=== PATIENT | female | born 1945 | race Caucasian/White ===

== ENCOUNTER 2017-03-08 23:44 | Inpatient (IN) | payer MEDICARE ==
[~2017-03-08] VITALS: Ht 154.9 cm; Wt 129.1 kg
[~2017-03-08 23:44] MED LIST: /AUGM875TA OR; /CIPR75TA OR; /GLIP10TAB PO; ACET65TA OR; ALBU17IN INH; ALBU83IN IN; ALDA25TA2 OR; ALLO300T PO; AMIT10TA PO; AMIT10TA2 OR; AMIT10TA2 PO; ASPI1TAB; ASPI1TAB PO; ASPI325T28; ASPI81TA83 PO; ATEN50TA2 PO; BABY81CH OR; COLA100C2 PO; COZA50TA18 PO; CRES5TAB OR; DULC10SU2 PR; ELIQ2.5T PO; FURO40TA2 PO; GLIP10TA6 PO; GLIP10TA97 OR; GLIP1TAB51 PO; GLUCOSAMINE PO; HUMALOG SC; HUMOLOG INSULIN SC; HUMUINJ SC; INSUDET SC; INSUHUMDS SC; LASI40TA PO; LEVEINJ SC; LEVEMIR INSULIN SC; LIPITOR PO; LOSA50TA20 PO; MIRALEX PO; MULTCAP PO; OXYGEN INH; POTA10CA2 OR; SINGULAR PO; SPIR25TA2 PO; SYNT100T PO; SYNT125T PO; SYNT175T PO; SYNTHROID PO; TOLT2TA OR; VICO5TAB OR; VITA-193 PO; VITA100066 PO; ZYLO300T OR; ZYLO300T4 PO; [UNRECOGNIZED DRUG - SUPPLY]; augmentin PO
[2017-03-09] MEDS ORDERED: [UNRECOGNIZED DRUG - OTHER] AD (00:15)
[2017-03-09] MEDS ORDERED: ONDANSETRON 4MG/2ML VIAL (J2405) IV ONE (01:15)
[2017-03-09 01:16] LABS: BASO % 0.2 % (0.0-1.0); EOS # 0.1 K/mm3 (0.0-0.50); EOS % 0.5 % (0.0-3.0); LARGE UNSTAINED CELL # 0.1 K/mm3 (0.0-0.4); LARGE UNSTAINED CELL % 0.7 % (0.0-4.0); LYMPH # 1.2 K/mm3 (1.5-4.5); LYMPH % 8.5 % (24.0-44.0); MEAN CORPUSCULAR HEMOGLOBIN 28.3 pg (27.0-33.0); MEAN CORPUSCULAR HGB CONC 31.8 g/dl (32.0-36.5); MEAN CORPUSCULAR VOLUME 89.1 fl (80.0-96.0); MONO # 0.5 K/mm3 (0.0-0.8); MONO % 3.1 % (0.0-5.0); NEUTROPHILS # 12.6 K/mm3 (1.8-7.7); NEUTROPHILS % 86.9 % (36.0-66.0); PLATELET COUNT, AUTOMATED 336 k/mm3 (150-450); RED CELL DISTRIBUTION WIDTH 16.5 % (11.5-14.5); WHITE BLOOD COUNT 14.5 K/mm3 (4.0-10.0)
[2017-03-09] MEDS: MORPHINE 2 MG/ML 1ML SYRINGE IV PRN ×4 (01:17→03:33)
[2017-03-09 01:24] LABS: ALBUMIN 4.1 GM/DL (3.2-5.2); ALBUMIN/GLOBULIN RATIO 0.95 (1.00-1.93); BILIRUBIN,DIRECT 0.1 MG/DL (0.0-0.2); BILIRUBIN,TOTAL 0.5 MG/DL (0.2-1.0); CALCIUM LEVEL 9.7 MG/DL (8.8-10.2); CREATININE FOR GFR 1.39 MG/DL (0.55-1.02); GLOMERULAR FILTRATION RATE 39.8 (>39); POTASSIUM SERUM 4.3 MEQ/L (3.5-5.1); TOTAL PROTEIN 8.4 GM/DL (6.4-8.2)
--- NOTE | 2017-03-09 02:30 | REPUSA ---
CLINICAL HISTORY: Abdominal pain. TECHNIQUE: Multiple axial, sagittal and coronal CT images were obtained through the abdomen and pelvi s without administration of oral or IV contrast material. COMMENTS: Infraumbilical anterior midline abdominal hernia containing nonincarcerated sac. Right periumbilical anterior abdominal wall hernia containing mildly incarcerated distal ileal small bowel loop. Surrounding fat stranding. No evidence bowel perforation or pneumatosis intestinalis. No free fluid is seen. Secondary mild partial small bowel obstruction with a transition zone at the level of the hernia. The liver is mildly enlarged without mass or defect. Mild irregularity of the hepatic contour. There is no intra or extrahepatic biliary ductal dilatation. The spleen is normal. The gallbladder is thick ened. The pancreas is of normal contour and attenuation characteristics. There is no evidence of adre nal mass. The kidneys are normal in size, shape and configuration. No renal or ureteral calculi are identified. There is no hydroureter or hydronephrosis. There is no evidence for appendicitis. There is no evidence of abdominal ascites or lymphadenopathy. There is no evidence of intrinsic or extrinsic bladder mass. There is no pelvic ascites or lymphadeno kamar. Images of the lung bases show no evidence of pleural or parenchymal mass. There are no pleural effusi ons. The bony structures are free of lytic or blastic lesions. Multilevel degenerative changes are seen in volving the thoracolumbar spine. Scattered calcifications are seen involving the aorta and major branches compatible with atherosclero sis. Prior hysterectomy. IMPRESSION: Infraumbilical anterior midline abdominal hernia containing nonincarcerated sac. Right periumbilical anterior abdominal wall hernia containing mildly incarcerated distal ileal small bowel loop. Surrounding fat stranding. No evidence bowel perforation or pneumatosis intestinalis. No free fluid is seen. Secondary mild partial small bowel obstruction with a transition zone at the level of the hernia. Prior hysterectomy. Thank you for your kind referral of this patient. ADDENDUM: Dr Armstrong informed at 2:20 am.
[2017-03-09] MEDS ORDERED: LOSA100T36 PO (03:09)
[2017-03-09] MEDS ORDERED: VITMTA PO (03:09)
[2017-03-09] MEDS ORDERED: ASPI81TAEC PO (03:09)
[2017-03-09] MEDS ORDERED: ACET-683 PO (03:09)
[2017-03-09] MEDS ORDERED: ATEN100T PO (03:09)
[2017-03-09] MEDS ORDERED: TOUJ1.2I SC (03:10)
[2017-03-09] MEDS ORDERED: SYNT100T PO (03:10)
[2017-03-09] MEDS ORDERED: ONDANSETRON 4MG/2ML VIAL (J2405) IV PRN (03:30)
[2017-03-09] MEDS ORDERED: NORCO, ANEXSIA 5/325MG TABLET (HYDROcodone/ACETAMINOPHEN) PO PRN (03:30)
[2017-03-09 04:30] VITALS: BP 176/72
[2017-03-09] MEDS: LR 1,000 ML IV SCH ×3 (04:45→18:15)
[2017-03-09 07:28] LABS: BASO % 0.3 % (0.0-1.0); EOS % 0.3 % (0.0-3.0); LARGE UNSTAINED CELL # 0.1 K/mm3 (0.0-0.4); LARGE UNSTAINED CELL % 0.9 % (0.0-4.0); LYMPH # 0.8 K/mm3 (1.5-4.5); LYMPH % 9.4 % (24.0-44.0); MEAN CORPUSCULAR HGB CONC 32.1 g/dl (32.0-36.5); MEAN CORPUSCULAR VOLUME 90.2 fl (80.0-96.0); MONO # 0.3 K/mm3 (0.0-0.8); MONO % 3.2 % (0.0-5.0); NEUTROPHILS # 7.6 K/mm3 (1.8-7.7); NEUTROPHILS % 85.9 % (36.0-66.0); PLATELET COUNT, AUTOMATED 294 k/mm3 (150-450); RED CELL DISTRIBUTION WIDTH 16.6 % (11.5-14.5); WHITE BLOOD COUNT 8.8 K/mm3 (4.0-10.0)
[2017-03-09 07:37] LABS: CALCIUM LEVEL 9.6 MG/DL (8.8-10.2); CREATININE FOR GFR 1.29 MG/DL (0.55-1.02); GLOMERULAR FILTRATION RATE 43.4 (>39); POTASSIUM SERUM 4.8 MEQ/L (3.5-5.1)
[2017-03-09] MEDS: ENOXAPARIN 40 MG/0.4 ML SYRINGE (J1650) SC SCH (08:14)
[2017-03-09] MEDS: MORPHINE 4 MG/ML 1ML SYRINGE IV PRN ×2 (08:14→11:07)
--- NOTE | 2017-03-09 08:49 | HPEPDOC ---
General Surgery H&P Date of Admission Mar 09, 2017 at 03:30 History and Physical CHIEF COMPLAINT: abdominal pain, nausea, and vomiting. HISTORY OF PRESENT ILLNESS: Patient is a 71 year old Female with morbid obesity and a long standing history of incisional hernia who presented herself to the emergency room late last night for complaint sudden onset of crampy upper abdominal pain, nausea and vomiting. This started about 7 PM last night prior to this, patient was feeling well. She did have history last July where she presented with slowly resolving partial small bowel obstruction related to her hernia that got better with conservative therapy. She said she'll follow-up with Dr. De La Cruz after this to discuss with him, hernia repair but due to her morbid obesity, he thinks she is not a good candidate for an elective hernia repair. All her other medical problems include sleep apnea on CPAP, diabetes on insulin, history of congestive heart failure. ALLERGIES: Please see below. HOME MEDICATIONS: Please see below. PAST MEDICAL HISTORY: 1. Diabetes, insulin-dependent 2. Morbid obesity 3. Hypothyroidism status post thyroidectomy for thyroid cancer 4. History of congestive heart failure 5. Hypertension 6. Hypercholesterolemia 7. Obstructive sleep apnea on CPAP nightly PAST SURGICAL HISTORY: 1. Thyroidectomy for thyroid cancer 2. Abdominal hysterectomy 3. Sigmoid colon resection for diverticular stricture 4. Umbilical hernia repair done at the same time as the colon resection (no mesh ) 5. Bilateral cataract surgery 6. Left knee arthroplasty PERSONAL/SOCIAL HISTORY: Denies smoking, alcohol use, or recreational drug use she works as a cook. Reports she remains fairly active REVIEW OF SYSTEMS: GENERAL: Denies chills, fatigue, fever, weight gain and weight loss. HEENT: Denies blurred vision and double vision. Denies ear symptoms. Denies hoarseness. NECK: Denies any neck pain. CARDIOVASCULAR: Denies chest pain and palpitations. MUSCULOSKELETAL: Denies arthralgias, back pain and thrombophlebitis. SKIN: Denies rash. NEUROLOGIC: Denies headache, stroke and transient ischemic attack. PSYCHIATRIC: Denies anxiety and depression. ENDOCRINE: Denies thyroid disease. HEMATOLOGY/ONCOLOGY: Denies any bleeding or clotting disorder. HEART: Denies any chest pains, palpitations, paroxysmal dyspnea, orthopnea. PULMONARY: Denies chronic cough, dyspnea and wheezing. GASTROINTESTINAL: See HPI GENITOURINARY: Denies dysuria, frequency, hematuria and nocturia. ENDOCRINE: Denies polydipsia, polyphagia, polyuria, heat or cold intolerance. Known diabetes on insulin no INFECTIOUS: Denies any recent upper respiratory tract infection, UTI, need for use of antibiotics. NUTRITION: Reports good appetite. PHYSICAL EXAMINATION: VITAL SIGNS: Please see below. GENERAL APPEARANCE: Patient seen at bedside, appears comfortable. Awake, alert, oriented. HEENT: Normocephalic, atraumatic. [place] palpebral conjunctivae. Anicteric sclerae. Lips moist. CHEST: No chest wall abnormalities. Normal respiratory motion/effort. NECK: Supple. No thyromegaly. No lymphadenopathies. LUNGS: Lung sounds are clear to auscultation bilaterally. No wheezing appreciated. HEART: No chest wall abnormalities. Heart rate and rhythm are regular with no murmurs. ABDOMEN: Abdomen is markedly obese, soft, moderately rounded rounded. She is moderately distended. Distention is most pronounced on the upper abdomen with wide diastases of her upper midline muscles as well as noticeable periumbilical bulging consistent with the hernia. Minimally tender on palpation. No rebound or guarding appreciated. SKIN: Warm, moist. EXTREMITIES: Extremities have no deformities. No edema identified. NEUROLOGICAL: . ANCILLARIES: . LABORATORY DATA: Please see below. MICROBIOLOGY: Please see below. IMAGING: . IMPRESSION AND PLAN: 1. Small bowel obstruction related to her incisional hernia 2. Morbid obesity with a BMI of 54 3. By report history of congestive heart failure though I could not find any documentation in the more off her EF 4. Diabetes, insulin-dependent A nasogastric tube has been placed in the emergency room and so far has drained about 500-600 ML since placement. Patient reports improvement of the crampiness though she still looks distended especially on her upper abdomen. She looks comfortable at the time I saw her. I have repeated her labs from the ER labs in the leukocytosis has resolved. Her creatinine is elevated though close to her baseline. Her BUN remains elevated probably more from dehydration. So we will keep her on IV fluids. Have spoken to the hospitalist service to evaluate her for possibility of going to the OR. I discussed her situation with her. She does have bowel obstruction and this seems to be related to her incisional hernia. She has about 3 hernia defects that I could clearly see along her incisional line at the midline and the one below the umbilicus seems to contain a bowel habits close to where the obstruction as though on physical exam due to her morbid obesity hard to ascertain whether this is incarcerated in the hernia as a classical define it or just adhered to the sac or abdominal wall. Due to her morbid obesity she is a poor candidate for hernia repair is most likely this would fail but due to the associated symptoms, we could not just ignore it and should try to repair this the best that we can. Question in my mind as have discussed with her and is whether we could do an emergent surgery which probably will be done in open fashion or we can decompress a little contrast to do it laparoscopically. Both methods probably long-term will fail if she remains morbidly obese. Vital Signs Vital Signs Date Time Temp Pulse Resp B/P (MAP) Pulse Ox O2 Delivery O2 Flow Rate FiO2 03/09/17 08:14 18 Nasal Cannula 2.0 03/09/17 04:30 97.3 77 176/72 (106) 94 I&Os I&O- Last 24 Hours up to 6 AM 03/09/17 06:00 Intake Total 0 ml Output Total 0 ml Balance 0 ml Laboratory Data Labs 24H Laboratory Tests 2 03/09/17 00:52: White Blood Count 14.5H, Red Blood Count 4.89, Hemoglobin 13.8, Hematocrit 43.5 , Mean Corpuscular Volume 89.1, Mean Corpuscular Hemoglobin 28.3, Mean Corpuscular Hemoglobin Concent 31.8L, Red Cell Distribution Width 16.5H, Platelet Count 336, Neutrophils (%) (Auto) 86.9H, Lymphocytes (%) (Auto) 8.5L, Monocytes (%) (Auto) 3.1, Eosinophils (%) (Auto) 0.5, Basophils (%) (Auto) 0.2, Neutrophils # (Auto) 12.6H, Lymphocytes # (Auto) 1.2L, Monocytes # (Auto) 0.5, Eosinophils # (Auto) 0.1, Basophils # (Auto) 0.0, Large Unclassified Cells % 0.7 , Large Unclassified Cells # 0.1, Anion Gap 7L, Glomerular Filtration Rate 39.8 , Calcium Level 9.7, Aspartate Amino Transf (AST/SGOT) 20, Alanine Aminotransferase (ALT/SGPT) 24, Alkaline Phosphatase 124H, Total Bilirubin 0.5, Direct Bilirubin 0.1, Total Protein 8.4H, Albumin 4.1, Albumin/Globulin Ratio 0.95L, Lipase 163 03/09/17 07:15: Anion Gap 5L, Glomerular Filtration Rate 43.4, Calcium Level 9.6, Blood Urea Nitrogen 45H, Creatinine 1.29H, Sodium Level 141, Potassium Level 4.8, Chloride Level 107, Carbon Dioxide Level 29 03/09/17 07:16: White Blood Count 8.8, Red Blood Count 4.41, Hemoglobin 12.8, Hematocrit 39.8, Mean Corpuscular Volume 90.2, Mean Corpuscular Hemoglobin 29.0, Mean Corpuscular Hemoglobin Concent 32.1, Red Cell Distribution Width 16.6H, Platelet Count 294, Neutrophils (%) (Auto) 85.9H, Lymphocytes (%) (Auto) 9.4L, Monocytes (%) (Auto) 3.2, Eosinophils (%) (Auto) 0.3, Basophils (%) (Auto) 0.3, Neutrophils # (Auto) 7.6, Lymphocytes # (Auto) 0.8L, Monocytes # (Auto) 0.3, Eosinophils # (Auto) 0.0, Basophils # (Auto) 0.0, Large Unclassified Cells % 0.9 , Large Unclassified Cells # 0.1 CBC/BMP Laboratory Tests 03/09/17 00:52 Red Blood Count 4.89, Mean Corpuscular Volume 89.1, Mean Corpuscular Hemoglobin 28.3, Mean Corpuscular Hemoglobin Concent 31.8 L, Red Cell Distribution Width 16.5 H, Neutrophils (%) (Auto) 86.9 H, Lymphocytes (%) (Auto) 8.5 L, Monocytes ( %) (Auto) 3.1, Eosinophils (%) (Auto) 0.5, Basophils (%) (Auto) 0.2, Neutrophils # (Auto) 12.6 H, Lymphocytes # (Auto) 1.2 L, Monocytes # (Auto) 0.5 , Eosinophils # (Auto) 0.1, Basophils # (Auto) 0.0 03/09/17 07:15 Calcium Level 9.6 03/09/17 07:16 Red Blood Count 4.41, Mean Corpuscular Volume 90.2, Mean Corpuscular Hemoglobin 29.0, Mean Corpuscular Hemoglobin Concent 32.1, Red Cell Distribution Width 16.6 H, Neutrophils (%) (Auto) 85.9 H, Lymphocytes (%) (Auto) 9.4 L, Monocytes ( %) (Auto) 3.2, Eosinophils (%) (Auto) 0.3, Basophils (%) (Auto) 0.3, Neutrophils # (Auto) 7.6, Lymphocytes # (Auto) 0.8 L, Monocytes # (Auto) 0.3, Eosinophils # (Auto) 0.0, Basophils # (Auto) 0.0 Home Medications Scheduled (Toujeo Solostar) 300 Unit/Ml Inj, 110 UNIT SC DAILY, (Reported) Allopurinol (Zyloprim) 300 Mg Tab, 300 MG PO DAILY, (Reported) Amitriptyline HCl (Amitriptyline HCl) 10 Mg Tab, 10 MG PO QHS, (Reported) Aspirin (Aspirin EC) 81 Mg Tabec, 81 MG PO QHS, (Reported) Atenolol (Atenolol) 100 Mg Tab, 50 MG PO BID, (Reported) Cholecalciferol (Vitamin D) 1,000 Unit Tab, 1,000 UNIT PO DAILY, (Reported) Cyanocobalamin (Vitamin B-12) 500 Mcg Tab, 500 MCG PO DAILY, (Reported) Furosemide (Furosemide) 40 Mg Tab, 40 MG PO BID, (Reported) Insulin Human Lispro (Humalog) 1 Units/0.01 Ml Inj, 20 UNITS SC BID, (Reported) BEFORE LUNCH AND DINNER Levothyroxine Sodium (Synthroid) 100 Mcg Tab, 100 MCG PO 4XWK, (Reported) TAKES ON MONDAY, MONDAY, MONDAY AND MONDAY. TAKES WITH 125 MCG FOR 225 MCG TOTAL ON THOSE DAYS. Levothyroxine Sodium (Synthroid) 125 Mcg Tab, 125 MCG PO DAILY, (Reported) Levothyroxine Sodium (Synthroid) 100 Mcg Tab, 50 MCG PO 3XW, (Reported) TAKES ON MONDAY, MONDAY AND MONDAY. TAKES WITH 125 MCG FOR 175 MCG TOTAL ON THOSE DAYS. Losartan Potassium (Losartan Potassium) 100 Mg Tab, 50 MG PO BID, (Reported) Multivitamins *[facility] STOCKED* (Thera M Plus *[facility] STOCKED*) 1 Tab Tab, 1 TAB PO DAILY, (Reported) Spironolactone (Spironolactone) 25 Mg Tab, 12.5 MG PO QHS, (Reported) Scheduled PRN Acetaminophen (Acetaminophen Extra Stren) 500 Mg Tab, 1,000 MG PO Q6H PRN for PAIN, (Reported) Allergies Coded Allergies: Contrast Media (Unverified Allergy, Unknown, 08/08/16) Exenatide (Verified Allergy, Unknown, 12/01/12) Nitrofurantoin (Verified Allergy, Unknown, MACROBID, 12/01/12) Phenol (Unverified Allergy, Unknown, 08/08/16) TAPE (Verified Adverse Reaction, Intermediate, ERYTHEMA ALSO WITH BANDAIDS , 08/08/16) PASCUAL MCINTOSH MD Mar 09, 2017 08:29
[2017-03-09] MEDS: PANTOPRAZOLE 40MG INJ (PROTONIX) (C9113) IV SCH (09:26)
[2017-03-09] MEDS ORDERED: hydrALAZINE INJ 20 MG/ML VIAL IV SCH (10:30)
[2017-03-09] MEDS: HumaLOG INSULIN (NovoLOG) PER UNIT SC SCH ×2 (11:02→21:00)
[2017-03-09] MEDS: NORCO, ANEXSIA 5/325MG TABLET (HYDROcodone/ACETAMINOPHEN) PO PRN ×2 (13:06→22:07)
[2017-03-09] MEDS: LOSARTAN 50 MG TAB PO SCH ×2 (13:07→22:02)
[2017-03-09] MEDS: ATENOLOL 50 MG TAB PO SCH ×2 (13:07→22:03)
[2017-03-09 14:00] VITALS: BP 150/69
--- NOTE | 2017-03-09 15:32 | CR.PDOC ---
[facility] Consultation Consultation DATE OF CONSULTATION: Mar 08, 2017 at 23:44 PRIMARY CARE PHYSICIAN: Megan Gillis REFERRING PROVIDER: Dr. Loco ATTENDING PHYSICIAN: Dr. Loco REASON FOR CONSULTATION/CHIEF COMPLAINT: Medical comanagement HISTORY OF PRESENT ILLNESS: This is a 71-year-old female with a past medical history of insulin-dependent diabetes mellitus, obstructive sleep apnea, diastolic heart failure, hypothyroidism status post thyroid cancer radiation and resection, CKD stage III , hypertension who presents complaining of abdominal pain. Patient states that 6:30 PM last night she started to develop nausea and bilious nonbloody vomiting, 2. The patient states her last bowel movement was Monday. Patient also started to develop chills. Minimal abdominal pain. Patient denies chest pain/shortness of breath/palpitations. Patient does have obstructive sleep apnea and typically uses her CPAP. Patient currently has an NG tube in place and states that her abdominal distention nausea and vomiting have significantly improved after this was placed. She is resting comfortably now. ALLERGIES: Please see below. HOME MEDICATIONS: Please see below. PAST MEDICAL HISTORY: As per HPI PAST SURGICAL HISTORY: Thyroid removal, hysterectomy, left knee surgery, bowel reconstruction, left breast biopsy, tubal ligation FAMILY HISTORY: Noncontributory SOCIAL HISTORY: Denies tobacco, alcohol, illicit drug use REVIEW OF SYSTEMS: HEENT: Denies sore throat/headache CARDIOVASCULAR: Denies chest pain/palpitations RESPIRATORY: Denies shortness of breath/cough GASTROINTESTINAL: + nausea/vomiting GENITOURINARY: Denies dysuria/urinary urgency. MUSCULOSKELETAL: Denies myalgias/arthralgias NEUROLOGICAL: Denies any focal weakness PHYSICAL EXAMINATION: VITAL SIGNS: Please see below. General: No acute distress, laying comfortably in bed. HEENT: Moist mucous membranes. NG tube in place with bilious fluid drained. Neck: No JVD or lymphadenopathy Cardiac: RRR, No murmurs Pulm: Clear to auscultation b/l. No wheezing, rhonchi Abd: Nontender. Distended. + BS. No rebound guarding or rigidity. Ext: Trace to 1+ edema lower extremities. No cyanosis. LABORATORY DATA: Please see below. ASSESSMENT/PLAN: 1. Small bowel obstruction- history of abdominal hysterectomy as well as sigmoid colon resection for diverticular stricture and an umbilical hernia repair. Patient does have an NG tube in place now draining bilious fluid. Resting comfortably. Management per surgery. 2. Obstructive sleep apnea- typically uses her CPAP at home. LUBA protocol. 3. History of diastolic heart failure- compensated. Diuretics on hold this time as the patient does have fluid suctioned from the NG tube and may need to fluid resuscitation. Last EF in 2013 was normal. We'll repeat echocardiogram. 4. Insulin-dependent diabetes mellitus- we'll reduce his dose of insulin as the patient is nothing by mouth at this point. Levemir 10 mg twice a day. 5. Hypertension- will restart patient's home meds 6. Morbid obesity- does pose an increased risk for surgical complications with anesthesia, especially the setting of obstructive sleep apnea 7. Hyperlipidemia- on statin 8. Hypothyroidism status post thyroidectomy/radiation- restart patient's Synthroid 9. H/o CKD stage 3, Mild elevation of Cr//BUN. On IVF. Lasix on hold. 10. Leukocytosis- likely secondary to #1. Resolved. DVT prophylaxis enoxaparin Vital Signs/I&O Vital Signs Date Time Temp Pulse Resp B/P (MAP) Pulse Ox O2 Delivery O2 Flow Rate FiO2 03/09/17 14:00 97.4 65 16 150/69 (96) 97 Nasal Cannula 2.0 I&O- Last 24 Hours up to 6 AM 03/09/17 06:00 Intake Total 0 ml Output Total 0 ml Balance 0 ml Laboratory Data Labs 24H Laboratory Tests 2 03/09/17 00:52: White Blood Count 14.5H, Red Blood Count 4.89, Hemoglobin 13.8, Hematocrit 43.5 , Mean Corpuscular Volume 89.1, Mean Corpuscular Hemoglobin 28.3, Mean Corpuscular Hemoglobin Concent 31.8L, Red Cell Distribution Width 16.5H, Platelet Count 336, Neutrophils (%) (Auto) 86.9H, Lymphocytes (%) (Auto) 8.5L, Monocytes (%) (Auto) 3.1, Eosinophils (%) (Auto) 0.5, Basophils (%) (Auto) 0.2, Neutrophils # (Auto) 12.6H, Lymphocytes # (Auto) 1.2L, Monocytes # (Auto) 0.5, Eosinophils # (Auto) 0.1, Basophils # (Auto) 0.0, Large Unclassified Cells % 0.7 , Large Unclassified Cells # 0.1, Anion Gap 7L, Glomerular Filtration Rate 39.8 , Calcium Level 9.7, Aspartate Amino Transf (AST/SGOT) 20, Alanine Aminotransferase (ALT/SGPT) 24, Alkaline Phosphatase 124H, Total Bilirubin 0.5, Direct Bilirubin 0.1, Total Protein 8.4H, Albumin 4.1, Albumin/Globulin Ratio 0.95L, Lipase 163 03/09/17 07:15: Anion Gap 5L, Glomerular Filtration Rate 43.4, Calcium Level 9.6, Blood Urea Nitrogen 45H, Creatinine 1.29H, Sodium Level 141, Potassium Level 4.8, Chloride Level 107, Carbon Dioxide Level 29 03/09/17 07:16: White Blood Count 8.8, Red Blood Count 4.41, Hemoglobin 12.8, Hematocrit 39.8, Mean Corpuscular Volume 90.2, Mean Corpuscular Hemoglobin 29.0, Mean Corpuscular Hemoglobin Concent 32.1, Red Cell Distribution Width 16.6H, Platelet Count 294, Neutrophils (%) (Auto) 85.9H, Lymphocytes (%) (Auto) 9.4L, Monocytes (%) (Auto) 3.2, Eosinophils (%) (Auto) 0.3, Basophils (%) (Auto) 0.3, Neutrophils # (Auto) 7.6, Lymphocytes # (Auto) 0.8L, Monocytes # (Auto) 0.3, Eosinophils # (Auto) 0.0, Basophils # (Auto) 0.0, Large Unclassified Cells % 0.9 , Large Unclassified Cells # 0.1 03/09/17 12:13: Bedside Glucose (Misc Panel) 130H CBC/BMP Laboratory Tests 03/09/17 00:52 Red Blood Count 4.89, Mean Corpuscular Volume 89.1, Mean Corpuscular Hemoglobin 28.3, Mean Corpuscular Hemoglobin Concent 31.8 L, Red Cell Distribution Width 16.5 H, Neutrophils (%) (Auto) 86.9 H, Lymphocytes (%) (Auto) 8.5 L, Monocytes ( %) (Auto) 3.1, Eosinophils (%) (Auto) 0.5, Basophils (%) (Auto) 0.2, Neutrophils # (Auto) 12.6 H, Lymphocytes # (Auto) 1.2 L, Monocytes # (Auto) 0.5 , Eosinophils # (Auto) 0.1, Basophils # (Auto) 0.0 03/09/17 07:15 Calcium Level 9.6 03/09/17 07:16 Red Blood Count 4.41, Mean Corpuscular Volume 90.2, Mean Corpuscular Hemoglobin 29.0, Mean Corpuscular Hemoglobin Concent 32.1, Red Cell Distribution Width 16.6 H, Neutrophils (%) (Auto) 85.9 H, Lymphocytes (%) (Auto) 9.4 L, Monocytes ( %) (Auto) 3.2, Eosinophils (%) (Auto) 0.3, Basophils (%) (Auto) 0.3, Neutrophils # (Auto) 7.6, Lymphocytes # (Auto) 0.8 L, Monocytes # (Auto) 0.3, Eosinophils # (Auto) 0.0, Basophils # (Auto) 0.0 Allergies Coded Allergies: Contrast Media (Unverified Allergy, Unknown, 08/08/16) Exenatide (Verified Allergy, Unknown, 12/01/12) Nitrofurantoin (Verified Allergy, Unknown, MACROBID, 12/01/12) Phenol (Unverified Allergy, Unknown, 08/08/16) TAPE (Verified Adverse Reaction, Intermediate, ERYTHEMA ALSO WITH BANDAIDS , 08/08/16) Home Medications Scheduled (Moo Gonzalez) 300 Unit/Ml Inj, 110 UNIT SC DAILY, (Reported) Allopurinol (Zyloprim) 300 Mg Tab, 300 MG PO DAILY, (Reported) Amitriptyline HCl (Amitriptyline HCl) 10 Mg Tab, 10 MG PO QHS, (Reported) Aspirin (Aspirin EC) 81 Mg Tabec, 81 MG PO QHS, (Reported) Atenolol (Atenolol) 100 Mg Tab, 50 MG PO BID, (Reported) Cholecalciferol (Vitamin D) 1,000 Unit Tab, 1,000 UNIT PO DAILY, (Reported) Cyanocobalamin (Vitamin B-12) 500 Mcg Tab, 500 MCG PO DAILY, (Reported) Furosemide (Furosemide) 40 Mg Tab, 40 MG PO BID, (Reported) Insulin Human Lispro (Humalog) 1 Units/0.01 Ml Inj, 20 UNITS SC BID, (Reported) BEFORE LUNCH AND DINNER Levothyroxine Sodium (Synthroid) 100 Mcg Tab, 100 MCG PO 4XWK, (Reported) TAKES ON MONDAY, MONDAY, MONDAY AND MONDAY. TAKES WITH 125 MCG FOR 225 MCG TOTAL ON THOSE DAYS. Levothyroxine Sodium (Synthroid) 125 Mcg Tab, 125 MCG PO DAILY, (Reported) Levothyroxine Sodium (Synthroid) 100 Mcg Tab, 50 MCG PO 3XW, (Reported) TAKES ON MONDAY, MONDAY AND MONDAY. TAKES WITH 125 MCG FOR 175 MCG TOTAL ON THOSE DAYS. Losartan Potassium (Losartan Potassium) 100 Mg Tab, 50 MG PO BID, (Reported) Multivitamins *[facility] STOCKED* (Thera M Plus *[facility] STOCKED*) 1 Tab Tab, 1 TAB PO DAILY, (Reported) Spironolactone (Spironolactone) 25 Mg Tab, 12.5 MG PO QHS, (Reported) Scheduled PRN Acetaminophen (Acetaminophen Extra Stren) 500 Mg Tab, 1,000 MG PO Q6H PRN for PAIN, (Reported) OSVALDO ARCEO MD Mar 09, 2017 15:32
[2017-03-09] MEDS: CYANOCOBALAMIN 500 MCG TAB PO SCH (16:00)
[2017-03-09] MEDS: VITAMIN D 1,000 INTERNATIONAL UNITS TABLET PO SCH (16:00)
[2017-03-09 22:00] VITALS: BP 163/67
[2017-03-09] MEDS: AMITRIPTYLINE 10 MG TAB PO SCH (22:02)
[2017-03-10] MEDS: MORPHINE 4 MG/ML 1ML SYRINGE IV PRN (02:31)
[2017-03-10] MEDS: LR 1,000 ML IV SCH ×2 (03:08→17:16)
[2017-03-10] MEDS: LEVOTHYROXINE 125MCG TABLET (0.125MG) PO SCH (05:08)
[2017-03-10] MEDS: NORCO, ANEXSIA 5/325MG TABLET (HYDROcodone/ACETAMINOPHEN) PO PRN (05:09)
[2017-03-10 06:00] VITALS: BP 140/63
[2017-03-10] MEDS ORDERED: LEVOTHYROXINE 50MCG TABLET (0.05MG) PO SCH (06:00)
[2017-03-10 08:30] LABS: BASO % 0.3 % (0.0-1.0); EOS # 0.1 K/mm3 (0.0-0.50); EOS % 1.9 % (0.0-3.0); LARGE UNSTAINED CELL # 0.1 K/mm3 (0.0-0.4); LARGE UNSTAINED CELL % 1.4 % (0.0-4.0); LYMPH # 1.4 K/mm3 (1.5-4.5); LYMPH % 19.6 % (24.0-44.0); MEAN CORPUSCULAR HEMOGLOBIN 29.3 pg (27.0-33.0); MEAN CORPUSCULAR VOLUME 91.5 fl (80.0-96.0); MONO # 0.4 K/mm3 (0.0-0.8); MONO % 5.5 % (0.0-5.0); NEUTROPHILS # 4.9 K/mm3 (1.8-7.7); NEUTROPHILS % 71.4 % (36.0-66.0); PLATELET COUNT, AUTOMATED 277 k/mm3 (150-450); RED CELL DISTRIBUTION WIDTH 16.6 % (11.5-14.5); WHITE BLOOD COUNT 6.9 K/mm3 (4.0-10.0)
[2017-03-10] MEDS: ATENOLOL 50 MG TAB PO SCH ×2 (08:54→21:48)
[2017-03-10] MEDS: CYANOCOBALAMIN 500 MCG TAB PO SCH (08:54)
[2017-03-10] MEDS: PANTOPRAZOLE 40MG INJ (PROTONIX) (C9113) IV SCH (08:54)
[2017-03-10] MEDS: ENOXAPARIN 40 MG/0.4 ML SYRINGE (J1650) SC SCH (08:54)
[2017-03-10] MEDS: LOSARTAN 50 MG TAB PO SCH ×2 (08:54→21:48)
[2017-03-10] MEDS: VITAMIN D 1,000 INTERNATIONAL UNITS TABLET PO SCH (08:54)
[2017-03-10] MEDS: HumaLOG INSULIN (NovoLOG) PER UNIT SC SCH ×2 (09:00→21:09)
[2017-03-10 09:17] LABS: ALBUMIN/GLOBULIN RATIO 0.94 (1.00-1.93); BILIRUBIN,TOTAL 0.5 MG/DL (0.2-1.0); CALCIUM LEVEL 8.4 MG/DL (8.8-10.2); CREATININE FOR GFR 1.37 MG/DL (0.55-1.02); GLOMERULAR FILTRATION RATE 40.5 (>39); MAGNESIUM LEVEL 2.4 MG/DL (1.8-2.4); POTASSIUM SERUM 4.8 MEQ/L (3.5-5.1); TOTAL PROTEIN 6.2 GM/DL (6.4-8.2)
--- NOTE | 2017-03-10 11:31 | REP ---
ABDOMINAL SERIES: Four views. HISTORY: Followup small bowel obstruction. Comparison is made with CT study from the previous day. FINDINGS: Upright chest radiograph demonstrates an NG tube entering the left upper quadrant of the abdomen. There are surgical clips in the soft tissues at the thoracic inlet consistent with previous right thyroid surgery. The lungs are symmetrically aerated and clear. There is no evidence of infiltrate or free subdiaphragmatic air. On supine and erect views of the abdomen, a small bowel obstruction pattern persists with moderately dilated air and fluid filled loops of small intestine throughout the central abdomen displaying differential air-fluid levels on upright radiograph. There is some stool in the right and left colon but no colonic distension is seen. There is a little more small bowel gas than was present at the time yesterday's CT study. The dilation is about the same. IMPRESSION: Persistent small bowel obstruction pattern. NG tube is seen terminating in the gastric fundus. Signed by Remy Oviedo MD 03/10/2017 12:31 P
--- NOTE | 2017-03-10 11:39 | IPNPDOC ---
Text Note Date of Service The patient was seen on 03/10/17. NOTE Subjective: Abd pain much improved. NG tube in place. No N/V. PHYSICAL EXAMINATION: VITAL SIGNS: Please see below. General: No acute distress, laying comfortably in bed. HEENT: Moist mucous membranes. NG tube in place with bilious fluid drained. Neck: No JVD or lymphadenopathy Cardiac: RRR, No murmurs Pulm: Clear to auscultation b/l. No wheezing, rhonchi Abd: Nontender. Distended. + BS. No rebound guarding or rigidity. Ext: Trace to 1+ edema lower extremities. No cyanosis. LABORATORY DATA: Please see below. Images: CT Abd/pelvis 03/09/17 IMPRESSION: Infraumbilical anterior midline abdominal hernia containing nonincarcerated sac. Right periumbilical anterior abdominal wall hernia containing mildly incarcerated distal ileal small bowel loop. Surrounding fat stranding. No evidence bowel perforation or pneumatosis intestinalis. No free fluid is seen. Secondary mild partial small bowel obstruction with a transition zone at the level of the hernia. Prior hysterectomy. ASSESSMENT/PLAN: 1. Small bowel obstruction- history of abdominal hysterectomy as well as sigmoid colon resection for diverticular stricture and an umbilical hernia repair. Patient does have an NG tube in place now draining bilious fluid. Resting comfortably. Management per surgery. 2. Obstructive sleep apnea- typically uses her CPAP at home. LUBA protocol. 3. History of diastolic heart failure- compensated. Diuretics on hold this time as the patient does have fluid suctioned from the NG tube and may need to fluid resuscitation. Last EF in 2013 was normal. Echocardiogram pending. 4. Insulin-dependent diabetes mellitus- we'll reduce his dose of insulin as the patient is nothing by mouth at this point. Levemir 10 mg twice a day. 5. Hypertension- will restart patient's home meds 6. Morbid obesity- does pose an increased risk for surgical complications with anesthesia, especially the setting of obstructive sleep apnea 7. Hyperlipidemia- on statin 8. Hypothyroidism status post thyroidectomy/radiation- restart patient's Synthroid 9. H/o CKD stage 3, Mild elevation of Cr//BUN. On IVF. Lasix on hold. 10. Leukocytosis- likely secondary to #1. Resolved. DVT prophylaxis enoxaparin VS,Fishbone, I+O VS, Fishbone, I+O Laboratory Tests 03/10/17 07:46 Red Blood Count 3.97 L, Mean Corpuscular Volume 91.5, Mean Corpuscular Hemoglobin 29.3, Mean Corpuscular Hemoglobin Concent 32.0, Red Cell Distribution Width 16.6 H, Neutrophils (%) (Auto) 71.4 H, Lymphocytes (%) (Auto ) 19.6 L, Monocytes (%) (Auto) 5.5 H, Eosinophils (%) (Auto) 1.9, Basophils (%) (Auto) 0.3, Neutrophils # (Auto) 4.9, Lymphocytes # (Auto) 1.4 L, Monocytes # ( Auto) 0.4, Eosinophils # (Auto) 0.1, Basophils # (Auto) 0.0 03/10/17 08:39 Calcium Level 8.4 L, Aspartate Amino Transf (AST/SGOT) 16, Alanine Aminotransferase (ALT/SGPT) 17, Alkaline Phosphatase 93, Total Bilirubin 0.5, Total Protein 6.2 #L, Albumin 3.0 #L Vital Signs Date Time Temp Pulse Resp B/P (MAP) Pulse Ox O2 Delivery O2 Flow Rate FiO2 03/10/17 08:54 140/63 03/10/17 06:00 98.4 65 18 98 Nasal Cannula 2.0 I&O- Last 24 Hours up to 6 AM 03/10/17 06:00 Intake Total 0 ml Output Total 2775 ml Balance -2775 ml OSVALDO ARCEO MD Mar 10, 2017 11:39
[2017-03-10 14:00] VITALS: BP 141/66
[2017-03-10] MEDS: AMITRIPTYLINE 10 MG TAB PO SCH (21:49)
[2017-03-10 22:00] VITALS: BP 141/66
[2017-03-11] MEDS: LR 1,000 ML IV SCH (02:35)
[2017-03-11 06:00] VITALS: BP 163/73
[2017-03-11] MEDS: LEVOTHYROXINE 100MCG TABLET (0.1MG) PO SCH (06:04)
[2017-03-11] MEDS: LEVOTHYROXINE 125MCG TABLET (0.125MG) PO SCH (06:04)
[2017-03-11 06:11] LABS: MEAN CORPUSCULAR HEMOGLOBIN 29.2 pg (27.0-33.0); MEAN CORPUSCULAR HGB CONC 31.7 g/dl (32.0-36.5); MEAN CORPUSCULAR VOLUME 92.1 fl (80.0-96.0); RED CELL DISTRIBUTION WIDTH 16.4 % (11.5-14.5)
[2017-03-11 06:32] LABS: ALBUMIN 2.8 GM/DL (3.2-5.2); ALBUMIN/GLOBULIN RATIO 0.78 (1.00-1.93); ALKALINE PHOSPHATASE 80 U/L (45-117); ALT/SGPT 15 U/L (12-78); AST/SGOT 14 U/L (15-37); BILIRUBIN,TOTAL 0.4 MG/DL (0.2-1.0); BLOOD UREA NITROGEN 29 MG/DL (7-18); CALCIUM LEVEL 8.7 MG/DL (8.8-10.2); CHLORIDE LEVEL 110 MEQ/L (98-107); CREATININE FOR GFR 0.93 MG/DL (0.55-1.02); GLOMERULAR FILTRATION RATE > 60.0 (>39); GLUCOSE, FASTING 79 MG/DL (83-110); MAGNESIUM LEVEL 2.5 MG/DL (1.8-2.4); TOTAL PROTEIN 6.4 GM/DL (6.4-8.2)
[2017-03-11 06:39] LABS: ANION GAP 7 MEQ/L (8-16); CARBON DIOXIDE LEVEL 27 MEQ/L (21-32); SODIUM LEVEL 144 MEQ/L (136-145)
[2017-03-11 06:41] LABS: POTASSIUM SERUM 3.7 MEQ/L (3.5-5.1)
[2017-03-11 09:09] VITALS: BP 150/68
--- NOTE | 2017-03-11 09:22 | REP ---
KUB, TWO VIEWS: HISTORY: Small bowel obstruction. COMPARISON: 03/10/2017 Air is present in small and large intestine. There are dilated loops of intestine that are slightly decreased in size and number compared to the previous study. There is no pneumoperitoneum. The patient is status post NG tube removal. IMPRESSION: Findings consistent with small bowel obstruction that are decreased compared to the previous study. Signed by Vic Sanabria MD 03/11/2017 09:34 A
[2017-03-11] MEDS: VITAMIN D 1,000 INTERNATIONAL UNITS TABLET PO SCH (09:48)
[2017-03-11] MEDS: CYANOCOBALAMIN 500 MCG TAB PO SCH (09:49)
[2017-03-11] MEDS: ATENOLOL 50 MG TAB PO SCH ×2 (09:50→22:51)
[2017-03-11] MEDS: LOSARTAN 50 MG TAB PO SCH ×2 (09:50→22:50)
[2017-03-11] MEDS: ENOXAPARIN 40 MG/0.4 ML SYRINGE (J1650) SC SCH (09:51)
[2017-03-11] MEDS: HumaLOG INSULIN (NovoLOG) PER UNIT SC SCH ×2 (09:54→22:51)
[2017-03-11] MEDS: FUROSEMIDE 40 MG TAB PO SCH ×2 (10:03→17:56)
[2017-03-11] MEDS: PANTOPRAZOLE 40MG INJ (PROTONIX) (C9113) IV SCH (11:53)
--- NOTE | 2017-03-11 13:55 | IPNPDOC ---
Text Note Date of Service The patient was seen on 03/11/17. NOTE Subjective: Abdominal pain resolved. NG tube was mistakenly taken out while patient was taking shower. Since then she has no nausea vomiting or abdominal pain. PHYSICAL EXAMINATION: VITAL SIGNS: Please see below. General: No acute distress, laying comfortably in bed. HEENT: Moist mucous membranes. NG tube in place with bilious fluid drained. Neck: No JVD or lymphadenopathy Cardiac: RRR, No murmurs Pulm: Clear to auscultation b/l. No wheezing, rhonchi Abd: Nontender. Distended. + BS. No rebound guarding or rigidity. Ext: Trace to 1+ edema lower extremities. No cyanosis. LABORATORY DATA: Please see below. Images: CT Abd/pelvis 03/09/17 IMPRESSION: Infraumbilical anterior midline abdominal hernia containing nonincarcerated sac. Right periumbilical anterior abdominal wall hernia containing mildly incarcerated distal ileal small bowel loop. Surrounding fat stranding. No evidence bowel perforation or pneumatosis intestinalis. No free fluid is seen. Secondary mild partial small bowel obstruction with a transition zone at the level of the hernia. Prior hysterectomy. ASSESSMENT/PLAN: 1. Small bowel obstruction- history of abdominal hysterectomy as well as sigmoid colon resection for diverticular stricture and an umbilical hernia repair. NG tube came out last night. Since then the patient has had no nausea vomiting or abdominal pain. Resting comfortably. Management per surgery. 2. Obstructive sleep apnea- typically uses her CPAP at home. LUBA protocol. 3. History of diastolic heart failure- compensated. Restart Diuretics Last EF in 2013 was normal. Echocardiogram pending. 4. Insulin-dependent diabetes mellitus- we'll reduce his dose of insulin as the patient is nothing by mouth at this point. Levemir 10 mg twice a day. 5. Hypertension-continue patient's home meds 6. Morbid obesity- does pose an increased risk for surgical complications with anesthesia, especially the setting of obstructive sleep apnea 7. Hyperlipidemia- on statin 8. Hypothyroidism status post thyroidectomy/radiation-continue Synthroid 9. H/o CKD stage 3, Mild elevation of Cr//BUN has resolved. Status post IVF. 10. Leukocytosis- likely secondary to #1. Resolved. DVT prophylaxis enoxaparin VS,Fishbone, I+O VS, Fishbone, I+O Laboratory Tests 03/11/17 05:41 Red Blood Count 3.46 L, Mean Corpuscular Volume 92.1, Mean Corpuscular Hemoglobin 29.2, Mean Corpuscular Hemoglobin Concent 31.7 L, Red Cell Distribution Width 16.4 H, Calcium Level 8.7 L, Aspartate Amino Transf (AST/SGOT ) 14 L, Alanine Aminotransferase (ALT/SGPT) 15, Alkaline Phosphatase 80, Total Bilirubin 0.4, Total Protein 6.4, Albumin 2.8 L Vital Signs Date Time Temp Pulse Resp B/P (MAP) Pulse Ox O2 Delivery O2 Flow Rate FiO2 03/11/17 09:09 97.2 63 18 150/68 (95) 92 Room Air 03/11/17 06:00 2.0 I&O- Last 24 Hours up to 6 AM 03/11/17 06:00 Intake Total 240 ml Output Total 3325 ml Balance -3085 ml OSVALDO ARCEO MD Mar 11, 2017 13:54
[2017-03-11] MEDS ORDERED: SPIRONOLACTONE 12.5MG PER 1/2 TABLET PO SCH (21:00)
[2017-03-11 22:00] VITALS: BP 152/67
[2017-03-11] MEDS: AMITRIPTYLINE 10 MG TAB PO SCH (22:50)
[2017-03-12 05:47] LABS: MEAN CORPUSCULAR HEMOGLOBIN 28.9 pg (27.0-33.0); MEAN CORPUSCULAR HGB CONC 31.6 g/dl (32.0-36.5); MEAN CORPUSCULAR VOLUME 91.6 fl (80.0-96.0); RED CELL DISTRIBUTION WIDTH 16.3 % (11.5-14.5); WHITE BLOOD COUNT 5.4 K/mm3 (4.0-10.0)
[2017-03-12 05:54] LABS: ALBUMIN 2.9 GM/DL (3.2-5.2); ALBUMIN/GLOBULIN RATIO 0.81 (1.00-1.93); ALKALINE PHOSPHATASE 77 U/L (45-117); ALT/SGPT 18 U/L (12-78); ANION GAP 3 MEQ/L (8-16); AST/SGOT 16 U/L (15-37); BILIRUBIN,TOTAL 0.4 MG/DL (0.2-1.0); BLOOD UREA NITROGEN 20 MG/DL (7-18); CALCIUM LEVEL 8.1 MG/DL (8.8-10.2); CARBON DIOXIDE LEVEL 32 MEQ/L (21-32); CHLORIDE LEVEL 106 MEQ/L (98-107); CREATININE FOR GFR 0.93 MG/DL (0.55-1.02); GLOMERULAR FILTRATION RATE > 60.0 (>39); GLUCOSE, FASTING 88 MG/DL (83-110); MAGNESIUM LEVEL 2.1 MG/DL (1.8-2.4); POTASSIUM SERUM 3.6 MEQ/L (3.5-5.1); SODIUM LEVEL 141 MEQ/L (136-145); TOTAL PROTEIN 6.5 GM/DL (6.4-8.2)
[2017-03-12 06:00] VITALS: BP 149/64
[2017-03-12] MEDS: LEVOTHYROXINE 125MCG TABLET (0.125MG) PO SCH (06:25)
[2017-03-12] MEDS: LEVOTHYROXINE 100MCG TABLET (0.1MG) PO SCH (06:25)
--- NOTE | 2017-03-12 07:59 | IPNPDOC ---
Text Note Date of Service The patient was seen on 03/12/17. NOTE Subjective: Abdominal pain resolved. Tolerating crackers and fluids. PHYSICAL EXAMINATION: VITAL SIGNS: Please see below. General: No acute distress, laying comfortably in bed. HEENT: Moist mucous membranes. Neck: No JVD or lymphadenopathy Cardiac: RRR, No murmurs Pulm: Clear to auscultation b/l. No wheezing, rhonchi Abd: Nontender. Distended. + BS. No rebound guarding or rigidity. Ext: Trace to 1+ edema lower extremities. No cyanosis. LABORATORY DATA: Please see below. Images: CT Abd/pelvis 03/09/17 IMPRESSION: Infraumbilical anterior midline abdominal hernia containing nonincarcerated sac. Right periumbilical anterior abdominal wall hernia containing mildly incarcerated distal ileal small bowel loop. Surrounding fat stranding. No evidence bowel perforation or pneumatosis intestinalis. No free fluid is seen. Secondary mild partial small bowel obstruction with a transition zone at the level of the hernia. Prior hysterectomy. ASSESSMENT/PLAN: 1. Small bowel obstruction- history of abdominal hysterectomy as well as sigmoid colon resection for diverticular stricture and an umbilical hernia repair. NG tube came out 03/10. Had nausea last night, and d/c was cancelled. Resting comfortably. Management per surgery. 2. Obstructive sleep apnea- typically uses her CPAP at home. LUBA protocol. 3. History of diastolic heart failure- compensated. Restarted on Diuretics Last EF in 2013 was normal. Echocardiogram on this admission noted, with preserved EF. 4. Insulin-dependent diabetes mellitus- Advised to take Trujeo 10U at home and to check BS BID (before breakfast, 2hr after lunch, 2hr after dinner, before bedtime, and to keep log so that Insulin can be adjusted by her PCP within 1 week). IF BS rising, call PCP to adjust insulin dosage. Insulin requirements are low as patient is not eating a regular diet, but will increase once tolerating more food. 5. Hypertension-continue patient's home meds 6. Morbid obesity- does pose an increased risk for surgical complications with anesthesia, especially the setting of obstructive sleep apnea 7. Hyperlipidemia- on statin 8. Hypothyroidism status post thyroidectomy/radiation-continue Synthroid 9. H/o CKD stage 3, Mild elevation of Cr//BUN has resolved. Status post IVF. 10. Leukocytosis- likely secondary to #1. Resolved. DVT prophylaxis enoxaparin VS,Fishbone, I+O VS, Fishbone, I+O Laboratory Tests 03/12/17 05:22 Red Blood Count 3.48 L, Mean Corpuscular Volume 91.6, Mean Corpuscular Hemoglobin 28.9, Mean Corpuscular Hemoglobin Concent 31.6 L, Red Cell Distribution Width 16.3 H, Calcium Level 8.1 L, Aspartate Amino Transf (AST/SGOT ) 16, Alanine Aminotransferase (ALT/SGPT) 18, Alkaline Phosphatase 77, Total Bilirubin 0.4, Total Protein 6.5, Albumin 2.9 L Vital Signs Date Time Temp Pulse Resp B/P (MAP) Pulse Ox O2 Delivery O2 Flow Rate FiO2 03/12/17 06:00 97.5 59 18 149/64 (92) 95 Room Air 03/11/17 06:00 2.0 I&O- Last 24 Hours up to 6 AM 03/12/17 06:00 Intake Total 2818 ml Output Total 1700 ml Balance 1118 ml OSVALDO ARCEO MD Mar 12, 2017 07:59
[2017-03-12] MEDS: ENOXAPARIN 40 MG/0.4 ML SYRINGE (J1650) SC SCH (09:00)
[2017-03-12] MEDS: LOSARTAN 50 MG TAB PO SCH (09:00)
[2017-03-12] MEDS: PANTOPRAZOLE 40MG INJ (PROTONIX) (C9113) IV SCH (09:00)
[2017-03-12] MEDS: HumaLOG INSULIN (NovoLOG) PER UNIT SC SCH (09:00)
[2017-03-12 11:02] VITALS: BP 149/64
[2017-03-12] MEDS: CYANOCOBALAMIN 500 MCG TAB PO SCH (11:02)
[2017-03-12] MEDS: ATENOLOL 50 MG TAB PO SCH (11:02)
[2017-03-12] MEDS: VITAMIN D 1,000 INTERNATIONAL UNITS TABLET PO SCH (11:04)
[2017-03-12] MEDS: FUROSEMIDE 40 MG TAB PO SCH (11:04)
[2017-03-12 12:00] VITALS: BP 165/68
--- NOTE | 2017-04-02 19:26 | DSES ---
DATE OF ADMISSION: 03/09/2017 DATE OF DISCHARGE: 03/12/2017 PRINCIPAL DIAGNOSIS: Small-bowel obstruction secondary to ventral hernia. ASSOCIATED DIAGNOSES: Severe morbid obesity with BMI of 54, history of congestive heart failure, history of hypertension, history of hypercholesterolemia, history of obstructive sleep apnea, history of hysterectomy, and sigmoid colon resection for diverticular stricture, history of umbilical hernia repair. HISTORY OF PRESENT ILLNESS: The patient is a 71-year-old female with a longstanding history of an incisional hernia who has developed crampy abdominal pain, nausea, vomiting and presented with an acute onset of abdominal pain, nausea, vomiting prior to admission. She had a previous admission about 6 months ago for the same issue. And in general she had a CT scan which shows small bowel going into a portion of a very large ventral hernia and then into a second hernia off this hernia which has small bowel and decompressed small bowel going off of this. HOSPITAL COURSE SUMMARY: The patient was admitted with the above diagnosis, had an NG tube placed and had some significant improvement over the first 24 hours and I am not sure if just allowing her to be in the recumbent position decreased the amount of pressure off of her abdominal wall and decreased the incarceration but she had some significant improvement and she was progressed to a clear liquid diet. Eventually she was discharged to home on a regular diet, but we had an extensive discussion at the time of her admission of her perioperative risk and more importantly the significant high risk for recurrence given her morbid obesity. And I felt that she should pursue additional treatment for possible gastric bypass. She was concerned about a gastric bypass given her age and we also discussed sleeve gastrectomy as a possibility and possibly even a bridge type of treatment for her. She understands and was doing well at the time of discharge, was no longer obstructed and will followup in my office so we can refer her down to the bariatric surgeons for further recommendations. She will discuss this issue further with her primary care provider. MEDICATIONS: At the time of discharge include: Her usual medications, Tylenol, allopurinol, amitriptyline, aspirin, atenolol, vitamin D, vitamin B12, Lasix, insulin, Synthroid, losartan, multivitamins, spironolactone and Toujeo.
== END 2017-03-12 12:32 | disposition home or self-care (01) | DRG 394 ==
LOC: M ED 23:44 → M ED INP 03-09 03:30 → M MSPAV 03-09 04:34 → M MS5PR 03-09 18:07
PROVIDERS: ADMIT Surgery; ATTEND Surgery
DX: K43.0 Incisional hernia with obstruction, without gangrene (principal); Z68.43 Body mass index [BMI] 50.0-59.9, adult; I50.32 Chronic diastolic (congestive) heart failure; I13.0 Hypertensive heart and chronic kidney disease with heart failure and stage 1 through stage 4 chronic kidney disease, or unspecified chronic kidney disease; E11.9 Type 2 diabetes mellitus without complications; E66.01 Morbid (severe) obesity due to excess calories; E89.0 Postprocedural hypothyroidism; N18.3 Chronic kidney disease, stage 3 (moderate); E78.00 Pure hypercholesterolemia, unspecified; G47.33 Obstructive sleep apnea (adult) (pediatric); Z79.4 Long term (current) use of insulin; E78.5 Hyperlipidemia, unspecified; Z85.850 Personal history of malignant neoplasm of thyroid; Z96.652 Presence of left artificial knee joint; Z90.49 Acquired absence of other specified parts of digestive tract; Z90.710 Acquired absence of both cervix and uterus

== ENCOUNTER 2018-07-16 12:04 | Day surgery (SDC) | payer MEDICARE ==
[2018-07-16] MEDS: NS 1,000 ML IV (07:00)
[2018-07-16] MEDS ORDERED: PROPOFOL 200 MG/20 ML VIAL As Ordered (12:18)
[2018-07-16] MEDS ORDERED: LIDOCAINE 2% INJ 100 MG/5 ML SDV (FOR ANES.) As Ordered (12:18)
== END 2018-07-16 14:04 | disposition home or self-care (01) ==
LOC: M OPP 12:04
DX: R19.5 Other fecal abnormalities (principal); K64.0 First degree hemorrhoids; K57.30 Diverticulosis of large intestine without perforation or abscess without bleeding; D12.0 Benign neoplasm of cecum; Z98.0 Intestinal bypass and anastomosis status
CPT/HCPCS: 45380

== ENCOUNTER 2019-05-19 04:43 | Inpatient (IN) | payer MEDICARE ==
[~2019-05-19] VITALS: Ht 154.9 cm; Wt 129.4 kg
[~2019-05-19 04:43] MED LIST changes: +ACET-683 PO; +ASPI-527; -ASPI1TAB; -ASPI1TAB PO; -ASPI325T28; +ASPI81TA26; +ASPI81TA26 PO; +ASPI81TAEC PO; +ATEN100T PO; +CYAN500T9 PO; +GLIP10TA18 PO; -GLIP1TAB51 PO; +LOSA100T50 PO; -LOSA50TA20 PO; +LOSA50TA88 PO; +SPIR-10 PO; +SYNT175T2 PO; +TOUJ1.2I SC; -VITA-193 PO; +VITMTA PO; -ZYLO300T4 PO; +ZYLO300T6 PO; +[UNRECOGNIZED DRUG - OTHER] AD
[2019-05-19] MEDS ORDERED: CVS400CA PO (05:07)
[2019-05-19] MEDS ORDERED: NS 1,000 ML IV ONE (05:30)
[2019-05-19 05:59] LABS: BASO % 0.2 % (0.0-1.0); EOS # 0.1 10^3/uL (0.0-0.5); EOS % 0.3 % (0.0-3.0); HEMATOCRIT 43.7 % (36.0-47.0); LYMPH # 1.2 10^3/uL (1.5-5.0); LYMPH % 7.9 % (24.0-44.0); MEAN CORPUSCULAR VOLUME 90.5 fl (80.0-96.0); MONO # 0.5 10^3/uL (0.0-0.8); MONO % 3.6 % (0.0-5.0); NEUTROPHILS # 13.2 10^3/uL (1.5-8.5); NEUTROPHILS % 87.7 % (36.0-66.0); PLATELET COUNT, AUTOMATED 314 10^3/uL (150-450); RED BLOOD COUNT 4.83 10^6/uL (4.00-5.40)
[2019-05-19] MEDS ORDERED: ONDANSETRON 4MG/2ML VIAL (J2405) IV ONE (06:30)
[2019-05-19] MEDS ORDERED: MORPHINE 4 MG/ML 1ML VIAL/SYRINGE (J2270) IV PRN ×2 (06:30→11:15)
[2019-05-19 06:31] LABS: ALBUMIN 3.9 GM/DL (3.2-5.2); ALT/SGPT 19 U/L (12-78); BILIRUBIN,DIRECT < 0.1 MG/DL (0.0-0.2); BILIRUBIN,TOTAL 0.4 MG/DL (0.2-1.0); LIPASE 180 U/L (73-393); TOTAL PROTEIN 7.7 GM/DL (6.4-8.2)
--- NOTE | 2019-05-19 07:39 | REPVR ---
PROCEDURE INFORMATION: Exam: CT Abdomen and Pelvis Without Contrast Exam date and time: 05/19/2019 6:49 AM Clinical history: 73 years old, female; Abdominal pain; Generalized; Additional info: Abd pain, intractable vomiting, contrast allergy TECHNIQUE: Imaging protocol: Computed tomography of the abdomen and pelvis without contrast. Radiation optimization: All CT scans at this facility use at least one of these dose optimization techniques: automated exposure control; mA and/or kV adjustment per patient size (includes targeted exams where dose is matched to clinical indication); or iterative reconstruction. COMPARISON: CT ABD PELVIS W/O CONTRAST 03/09/2017 1:24 AM FINDINGS: Lungs: Mild bilateral basilar chronic lung changes seen. Liver: Normal. No mass. Gallbladder and bile ducts: Normal. No calcified stones. No ductal dilation. Pancreas: Normal. No ductal dilation. Spleen: Normal. No splenomegaly. Adrenals: Normal. No mass. Kidneys and ureters: Normal. No hydronephrosis. Stomach and bowel: There is a 3.1 cm duodenal diverticulum arising from the third portion of the duodenum. The stomach is markedly distended with fluid and air and some dense material at the fundus. The patient is status post low colonic resection with grossly intact colocolonic anastomosis in the deep pelvis. There is mild sigmoid colon diverticulosis. Patient is likely status post appendectomy. Appendix: See Stomach And Bowel Finding. Intraperitoneal space: Unremarkable. No free air. No significant fluid collection. Vasculature: There are calcifications at the aortic root and coronary arteries. There is moderate aortic and iliac calcifications. Lymph nodes: Unremarkable. No enlarged lymph nodes. Bladder: Unremarkable as visualized. Reproductive: Patient status post hysterectomy. There is no adnexal mass. Bones/joints: There are bulky anterior thoracic spine osteophytes. There are marked T12-L1 and L5 S1 disc degenerative changes. There is grade 1 anterolisthesis of L5 on S1. There are multilevel facet arthrosis. Soft tissues: There are 2 adjacent lower anterior abdominal wall defects resulting in hernia. The first hernia is lobulated measuring 7.9 cm with a neck of 4.1 cm containing a portion of the transverse colon. The second hernia just to the right and more inferior measuring 6.4 x 5.1 cm with a relatively narrow neck measuring 2.1 cm containing small bowel loop with proximal dilatation of the small bowel loops measuring up to 3.8 cm with fecalization and collapse of the distal ileum-small bowel obstruction. IMPRESSION: 1. 2 contiguous lower anterior abdominal wall hernia one to the left with relatively wide neck containing portion of the colon and the second is slightly more inferior to the right with narrow neck containing small bowel loop resulting in proximal small bowel obstruction. 2. Significantly distended stomach with fluid and food like material likely due to the above-described bowel obstruction however underlying gastric dysmotility disorder or gastric outlet obstruction cannot be excluded. 3. Duodenal diverticulum. 4. Status post low colonic resection with intact anastomosis into the pelvis. 5. Mild sigmoid colon diverticulosis. 6. Status post hysterectomy. 7. Lumbar spine scoliosis with significant T12 L1-L5 S1 disc degenerative changes. Electronically signed by: Manohar Fabian On 05/19/2019 07:39:36 AM
[2019-05-19] MEDS: NS 1,000 ML IV SCH ×2 (08:48→18:45)
[2019-05-19] MEDS ORDERED: D3 U5000 PO (09:27)
[2019-05-19] MEDS ORDERED: SYNT112T2 PO (09:27)
[2019-05-19] MEDS ORDERED: ATEN25TA PO (09:27)
[2019-05-19] MEDS ORDERED: FURO80TA2 PO (09:27)
[2019-05-19] MEDS ORDERED: NS 1,000 ML IV SCH (11:02)
[2019-05-19] MEDS ORDERED: GLUCAGON FOR INJ 1 MG VIAL (J1610) SC PRN (11:15)
[2019-05-19] MEDS ORDERED: GLUCOSE 4 GM CHEW TABLET PO PRN (11:15)
[2019-05-19] MEDS ORDERED: ONDANSETRON 4MG/2ML VIAL (J2405) IV PRN (11:15)
[2019-05-19] MEDS ORDERED: DEXTROSE 50% 50 ML SYRINGE IV PRN (11:15)
--- NOTE | 2019-05-19 11:21 | HPEPDOC ---
[facility] Medical History & Physical Date of Admission May 19, 2019 Date of Service: May 19, 2019 History and Physical CHIEF COMPLAINT: Abdominal pain HISTORY OF PRESENT ILLNESS: Patient is a 73F with PMH abdominal hernias s/p repair, SBO s/p partial resection 2010 and multiple subsequent episodes of SBO, DM, LUBA, HTN, HLD, ?CHF presented to the ER with complaints of abdominal pain, nausea and vomiting since yesterday. CT scan showed 2 contiguous anterior abdominal wall hernia and suggestive of SBO. NGT placed in ED with already reported improvement in symptoms. She currently states that abdominal pain is minimal along with nausea. Denies any other complaints. Very cautious about taking pain medications and wants small doses of pain medication. PAST MEDICAL HISTORY: Refer to [facility] PAST SURGICAL HISTORY: Thyroidectomy Abdominal hysterectomy Sigmoid colon resection Umbilical hernia repair Partial bowel resection Cataract surgery Left knee arthroplasty SOCIAL HISTORY: Denies tobacco, alcohol or illicit drug use. FAMILY HISTORY: Brothers with dementia, cancers Sister-aneurysm ALLERGIES: Please see below. REVIEW OF SYSTEMS: 10 point review of system negative except as stated in HPI HOME MEDICATIONS: Please see below. PHYSICAL EXAMINATION: General: No acute distress, Alert, NGT in place draining brown fluids Eyes: Normal sclera, EOMI, MARGARET HENT: Atraumatic, neck supple Cardiovascular: Normal rate, normal rhythm Pulmonary: Clear to auscultation b/l, no wheezing GI: Soft, mild epigastric/periumbilica tenderness and distension Skin: Warm and dry Neuro: CN grossly intact. No focal deficits. Psych: oriented x 3 LABORATORY DATA: See below. IMAGING: CT Abdomen/pelvis- IMPRESSION: 1. 2 contiguous lower anterior abdominal wall hernia one to the left with relatively wide neck containing portion of the colon and the second is slightly more inferior to the right with narrow neck containing small bowel loop resulting in proximal small bowel obstruction. 2. Significantly distended stomach with fluid and food like material likely due to the above-described bowel obstruction however underlying gastric dysmotility disorder or gastric outlet obstruction cannot be excluded. 3. Duodenal diverticulum. 4. Status post low colonic resection with intact anastomosis into the pelvis. 5. Mild sigmoid colon diverticulosis. 6. Status post hysterectomy. 7. Lumbar spine scoliosis with significant T12 L1-L5 S1 disc degenerative changes. MICROBIOLOGY: Please see below. ASSESSMENT AND PLAN: 1. SBO - Recurrent history of SBO in setting of abdominal hernias. - Surgery consulted. - NPO at this time with continue NG tube drainage. - Symptoms already improving. - Pain control. Low dose morphine, patient has a history of being overly-sedated with high doses. 2. DM - ISS. Monitor BS. - On 72 units Lantus at home, will reduce to 35 units levemir at this time given NPO status and cover with sliding scale. Adjust if needed. 3. HTN - Hold oral meds at this time due to SBO. - Labetalol PRN. 4. Hypothyroidism - thyroid cancer s/p thyroidectomy. - on 112 mcg daily at home. Start on reduced 75mcg IV synthroid dose. 5. LUBA - Night time CPAP. 6. ?CHF - On Lasix but patient/family uncertain whether she has the diagnosis. - Follows at Dr. Garcia office. Not in exacerbation at this time. 7. HLD Vital Signs Vital Signs Date Time Temp Pulse Resp B/P (MAP) Pulse Ox O2 Delivery O2 Flow Rate FiO2 05/19/19 09:45 76 175/73 (107) 93 Nasal Cannula 05/19/19 07:14 18 05/19/19 05:28 96.7 Laboratory Data Labs 24H Laboratory Tests 2 05/19/19 05:49: Immature Granulocyte % (Auto) 0.3, White Blood Count 15.0H, Red Blood Count 4.83, Hemoglobin 14.0, Hematocrit 43.7, Mean Corpuscular Volume 90.5, Mean Corpuscular Hemoglobin 29.0, Mean Corpuscular Hemoglobin Concent 32.0, Red Cell Distribution Width 16.2H, Platelet Count 314, Neutrophils (%) (Auto) 87.7H, Lymphocytes (%) (Auto) 7.9L, Monocytes (%) (Auto) 3.6, Eosinophils (%) (Auto) 0.3, Basophils (%) (Auto) 0.2, Neutrophils # (Auto) 13.2H, Lymphocytes # (Auto) 1.2L, Monocytes # (Auto) 0.5, Eosinophils # (Auto) 0.1, Basophils # (Auto) 0.0, Nucleated Red Blood Cells % (auto) 0.0, Aspartate Amino Transf (AST/SGOT) 22, Alanine Aminotransferase (ALT/SGPT) 19, Alkaline Phosphatase 118H, Total B ilirubin 0.4, Direct Bilirubin < 0.1, Total Protein 7.7, Albumin 3.9, Albumin/Globulin Ratio 1.03, Lipase 180 05/19/19 05:58: POC Glucose (Misc Panel) 191H, POC Sodium (Misc Panel) 139, POC Potassium (Misc Panel) 4.2, POC Chloride (Misc Panel) 102, POC Total CO2 (Misc Panel) 27.0, POC Blood Urea Nitrogen (Misc Panel 34H, POC Ionized Calcium (Misc Panel) 4.7, POC Creatinine (Misc Panel) 1.4H, POC Hematocrit (Misc Panel) 44.0 CBC/BMP Laboratory Tests 05/19/19 05:49 Red Blood Count 4.83, Mean Corpuscular Volume 90.5, Mean Corpuscular Hemoglobin 29.0, Mean Corpuscular Hemoglobin Concent 32.0, Red Cell Distribution Width 16.2 H, Neutrophils (%) (Auto) 87.7 H, Lymphocytes (%) (Auto) 7.9 L, Monocytes (%) (Auto) 3.6, Eosinophils (%) (Auto) 0.3, Basophils (%) (Auto) 0.2, Neutrophils # (Auto) 13.2 H, Lymphocytes # (Auto) 1.2 L, Monocytes # (Auto) 0.5, Eosinophils # (Auto) 0.1, Basophils # (Auto) 0.0 Home Medications Scheduled Allopurinol (Zyloprim) 300 Mg Tab, 300 MG PO DAILY Amitriptyline HCl (Amitriptyline HCl) 10 Mg Tab, 10 MG PO QHS Aspirin (Aspirin EC) 81 Mg Tabec, 81 MG PO QHS Atenolol (Atenolol) 25 Mg Tablet, 25 MG PO BID Cholecalciferol (Vitamin D3) (Vitamin D3) 5,000 Unit Capsule, 5,000 UNIT PO DAILY Cyanocobalamin (Vitamin B-12) (Vitamin B-12) 500 Mcg Tab, 500 MCG PO DAILY Furosemide (Furosemide) 80 Mg Tablet, 40 MG PO BID Insulin Glargine,Hum.rec.anlog (Tokatja Lalostar) 300 Unit/Ml Inj, 72 UNIT SC DAILY Insulin Human Lispro (Humalog) 1 Units/0.01 Ml Inj, 20 UNITS SC BID BEFORE LUNCH AND DINNER Levothyroxine Sodium (Synthroid) 112 Mcg Tablet, 112 MCG PO DAILY Losartan Potassium (Losartan Potassium) 100 Mg Tab, 25 MG PO BID Spironolactone (Spironolactone) 25 Mg Tab, 12.5 MG PO QHS Scheduled PRN Acetaminophen (Acetaminophen) 500 Mg Tab, 1,000 MG PO Q6H PRN for PAIN Allergies Coded Allergies: Contrast Media (Unverified Allergy, Unknown, 08/08/16) exenatide (Verified Allergy, Unknown, 05/19/19) nitrofurantoin (Verified Allergy, Unknown, 05/19/19) phenol (Verified Allergy, Unknown, 05/19/19) TAPE (Verified Adverse Reaction, Intermediate, ERYTHEMA ALSO WITH BANDAIDS, 08/08/16) A-FIB/CHADSVASC A-FIB History Current/History of A-Fib/PAF?: No TITUS RIOS MD May 19, 2019 11:21
[2019-05-19] MEDS ORDERED: LABETALOL HCL 100 MG/20 ML VIAL IV PRN (11:30)
[2019-05-19] MEDS ORDERED: HumaLOG INSULIN (NovoLOG) PER UNIT SC SCH ×2 (12:00→21:00)
[2019-05-19 13:25] VITALS: BP 176/75
[2019-05-19] MEDS: HEPARIN SOD (PORCINE) 5000 UNITS/ML VIAL SC SCH ×2 (14:05→21:11)
[2019-05-19 16:00] VITALS: BP 160/72
[2019-05-19] MEDS: HumaLOG INSULIN (NovoLOG) PER UNIT SC SCH ×2 (18:00→23:47)
[2019-05-19 20:00] VITALS: BP 168/74
[2019-05-19] MEDS: LEVEMIR (INSULIN DETEMIR) 1 UNITS/0.01ML SC SCH (21:00)
[2019-05-19] MEDS: MORPHINE 4 MG/ML 1ML VIAL/SYRINGE (J2270) IV PRN (21:18)
[2019-05-19 23:59] VITALS: BP 154/82
[2019-05-20] MEDS ORDERED: FUROSEMIDE 20 MG/2 ML VIAL (J1940) IV ONE (00:15)
[2019-05-20 04:00] VITALS: BP 154/76
[2019-05-20] MEDS: MORPHINE 4 MG/ML 1ML VIAL/SYRINGE (J2270) IV PRN (04:09)
[2019-05-20] MEDS: NS 1,000 ML IV SCH ×2 (04:45→14:25)
[2019-05-20] MEDS: HumaLOG INSULIN (NovoLOG) PER UNIT SC SCH ×4 (06:00→17:11)
[2019-05-20] MEDS: HEPARIN SOD (PORCINE) 5000 UNITS/ML VIAL SC SCH ×3 (06:17→21:36)
[2019-05-20 07:13] LABS: HEMATOCRIT 36.7 % (36.0-47.0); HEMOGLOBIN 11.3 g/dl (12.0-15.5); MEAN CORPUSCULAR HEMOGLOBIN 29.4 pg (27.0-33.0); MEAN CORPUSCULAR HGB CONC 30.8 g/dl (32.0-36.5); MEAN CORPUSCULAR VOLUME 95.3 fl (80.0-96.0); PLATELET COUNT, AUTOMATED 231 10^3/uL (150-450); RED BLOOD COUNT 3.85 10^6/uL (4.00-5.40); WHITE BLOOD COUNT 4.8 10^3/uL (4.0-10.0)
[2019-05-20 07:41] LABS: CREATININE FOR GFR 1.06 MG/DL (0.55-1.30); GLOMERULAR FILTRATION RATE 54.1 (>39); POTASSIUM SERUM 4.4 MEQ/L (3.5-5.1)
[2019-05-20 08:00] VITALS: BP 175/74
[2019-05-20] MEDS: LEVOTHYROXINE 100 MCG (0.1MG) VIAL IV SCH (09:06)
[2019-05-20 12:00] VITALS: BP 148/74
--- NOTE | 2019-05-20 14:20 | IPNPDOC ---
Text Note Date of Service The patient was seen on 05/20/19. NOTE Subjective: Patient stated that she is doing better today, she has less abdom inal distention, no abdominal pain. Patient denied fever, chills, shortness of breath, palpitations, diarrhea or dysuria Objective: General: No acute distress, Alert, NGT in place draining brown fluids Eyes: Normal sclera, EOMI, MARGARET HENT: Atraumatic, neck supple Cardiovascular: Normal rate, normal rhythm Pulmonary: Clear to auscultation b/l, no wheezing GI: Soft, nontender and moderate distension Neuro: CN grossly intact. No focal deficits. Psych: oriented x 3 Assessment and plan: Patient is a 73F with PMH abdominal hernias s/p repair, SBO s/p partial resection 2010 and multiple subsequent episodes of SBO, DM, LUBA, HTN, HLD, ?CHF presented to the ER with complaints of abdominal pain, nausea and vomiting. Patient was found to have on CT of abdomen to anterior abdominal wall hernias a nd suggestive of SBO. 1. SBO - Recurrent history of SBO in setting of abdominal hernias. - Dr Smith recommended to continue NG tube suction. Patient will benefit from bariatric surgery after discharge - Symptoms already improving. - Pain management 2. DM - ISS. Monitor BS. -Glucose level is under control for now 3. HTN - Hold oral meds at this time due to SBO. - Labetalol PRN. 4. Hypothyroidism - thyroid cancer s/p thyroidectomy. -Continues Synthroid 5. LBUA - Night time CPAP. 6. ?CHF -patient/family uncertain whether she has the diagnosis. Patient on 80 mg of furosemide at home - Withhold Lasix due to nothing by mouth status - Follows at Dr. Garcia office. Not in exacerbation at this time. 7. HLD Continue statin VS,Fishbone, I+O VS, Fishbone, I+O Laboratory Tests 05/20/19 06:55 Red Blood Count 3.85 L, Mean Corpuscular Volume 95.3, Mean Corpuscular Hemoglobin 29.4, Mean Corpuscular Hemoglobin Concent 30.8 L, Red Cell Distribution Width 16.6 H, Calcium Level 9.0 Vital Signs Date Time Temp Pulse Resp B/P (MAP) Pulse Ox O2 Delivery O2 Flow Rate FiO2 05/20/19 12:00 97.0 75 20 148/74 (98) 95 05/20/19 04:00 3.0 05/19/19 12:45 Nasal Cannula I&O- Last 24 Hours up to 6 AM 05/20/19 05:59 Intake Total 1600 ml Output Total 2100 ml Balance -500 ml PETRONA JASON DO May 20, 2019 14:19
[2019-05-20 16:00] VITALS: BP 176/71
[2019-05-20] MEDS ORDERED: ACETAMINOPHEN 650 MG SUPP PR PRN (16:30)
[2019-05-20] MEDS ORDERED: ACETAMINOPHEN 325 MG TAB PO PRN (16:30)
[2019-05-20 18:06] VITALS: BP 122/68
[2019-05-20 20:00] VITALS: BP 136/68
[2019-05-20] MEDS: LEVEMIR (INSULIN DETEMIR) 1 UNITS/0.01ML SC SCH (20:19)
[2019-05-21] MEDS: MORPHINE 4 MG/ML 1ML VIAL/SYRINGE (J2270) IV PRN (00:23)
[2019-05-21] MEDS: NS 1,000 ML IV SCH ×2 (00:26→15:19)
[2019-05-21 00:30] VITALS: BP 152/68
[2019-05-21 04:15] VITALS: BP 140/70
[2019-05-21] MEDS: HumaLOG INSULIN (NovoLOG) PER UNIT SC SCH ×6 (06:00→23:24)
[2019-05-21] MEDS: HEPARIN SOD (PORCINE) 5000 UNITS/ML VIAL SC SCH ×3 (06:02→21:09)
[2019-05-21 07:29] LABS: HEMATOCRIT 36.7 % (36.0-47.0); HEMOGLOBIN 11.3 g/dl (12.0-15.5); MEAN CORPUSCULAR HGB CONC 30.8 g/dl (32.0-36.5); MEAN CORPUSCULAR VOLUME 94.3 fl (80.0-96.0); PLATELET COUNT, AUTOMATED 252 10^3/uL (150-450); RED BLOOD COUNT 3.89 10^6/uL (4.00-5.40); WHITE BLOOD COUNT 6.4 10^3/uL (4.0-10.0)
[2019-05-21 07:57] LABS: BLOOD UREA NITROGEN 14 MG/DL (7-18); CALCIUM LEVEL 8.8 MG/DL (8.8-10.2); CARBON DIOXIDE LEVEL 29 MEQ/L (21-32); CHLORIDE LEVEL 112 MEQ/L (98-107); CREATININE FOR GFR 0.91 MG/DL (0.55-1.30); GLOMERULAR FILTRATION RATE > 60.0 (>39); GLUCOSE, FASTING 103 MG/DL (70-100); POTASSIUM SERUM 3.5 MEQ/L (3.5-5.1); SODIUM LEVEL 147 MEQ/L (136-145)
[2019-05-21] MEDS: LEVOTHYROXINE 100 MCG (0.1MG) VIAL IV SCH (08:40)
[2019-05-21 10:00] VITALS: BP 170/84
[2019-05-21] MEDS: ATENOLOL 25 MG TAB PO SCH ×2 (11:23→21:10)
[2019-05-21] MEDS: LOSARTAN 50 MG TAB PO SCH ×2 (11:24→21:10)
--- NOTE | 2019-05-21 11:59 | IPN ---
DATE OF SERVICE: 05/21/2019 The patient seems to be making some good progress today. Has had flatus overnight. No nausea. No vomiting. Nasogastric (NG) tube output has still been a significant amount, but it is better than it was and draining mostly saliva spit at this time. Her abdomen is obese. It is nontender today. IMPRESSION AND PLAN: The patient has resolution of her small bowel obstruction. Will discontinue her NG tube and start her on a clear-liquid diet. She can be progressed on her diet and discharged to home whenever she deems necessary.
--- NOTE | 2019-05-21 12:01 | CR ---
DATE OF CONSULTATION: 05/20/2019 The patient is a 73-year-old female who presents again with a small bowel obstruction secondary to her hernia in the infraumbilical area. She has had numerous intra-abdominal procedures as well as hernia repairs and has a small bowel obstruction again with abdominal distension, nausea, vomiting and abdominal pain along the hernia site. The patient's past medical history is significant for a history of thyroidectomy abdominal hysterectomy sigmoid colectomy, umbilical hernia repair, partial bowel resection, cataract surgery, knee surgery, severe morbid obesity, small bowel obstructions, diabetes mellitus, obstructive sleep apnea, hypertension, hyperlipidemia, congestive heart failure. Medications include: - allopurinol - amitriptyline - aspirin - atenolol - vitamin D - vitamin B - Lasix - Toujeo - Humalog - Synthroid - losartan - spirolactone Physical exam reveals a supra morbidly obese white female who looks stated age. HEENT is unremarkable. Neck supple without adenopathy. Lungs are clear. Heart is regular. Abdomen is obese, tender along the umbilical area where she has the hernia present on her CT scan, although this she states after having the nasogastric (NG) tube placed last night is much better than it was. She is having some minimal crampy abdominal pain but this is resolving much quicker at this time as well. Her NG tube output is a significant amount of bilious output. IMPRESSION/PLAN: The patient has evidence of small bowel obstruction. She states that this seems to be resolving as it has previously. I anticipate by tomorrow she will be able to have her NG tube out and start on a clear liquid diet. Continue with current recommendations concerning the nonoperative treatment for her small bowel obstruction. Most importantly though, I do feel that she should entertain a possibility of operative intervention for gastric bypass or if not for a gastric bypass possibly to see the bariatric surgeons for possible repair of this hernia.
[2019-05-21 14:00] VITALS: BP 133/58
--- NOTE | 2019-05-21 19:34 | IPNPDOC ---
Text Note Date of Service The patient was seen on 05/21/19. NOTE Subjective: Patient stated that she is passing gas. She denies any bowel move ment. No any acute events overnight. Patient denied fever, chills, shortness of breath, palpitations, diarrhea or dysuria Objective: General: No acute distress, Alert, NGT in place draining brown fluids Eyes: Normal sclera, EOMI, MARGARET HENT: Atraumatic, neck supple Cardiovascular: Normal rate, normal rhythm Pulmonary: Clear to auscultation b/l, no wheezing GI: Soft, nontender and moderate distension Neuro: CN grossly intact. No focal deficits. Psych: oriented x 3 Assessment and plan: Patient is a 73F with PMH abdominal hernias s/p repair, SBO s/p partial resection 2010 and multiple subsequent episodes of SBO, DM, LUBA, HTN, HLD, ?CHF presented to the ER with complaints of abdominal pain, nausea and vomiting. Patient was found to have on CT of abdomen to anterior abdominal wall hernias and suggestive of SBO. 1. SBO Improved - Recurrent history of SBO in setting of abdominal hernias. - NG tube removed today. Start with clear liquid diet - Patient will benefit from bariatric surgery after discharge - Symptoms already improving. - Pain management 2. DM - ISS. Monitor BS. -Glucose level is under control 3. HTN Resumed home medication Blood pressures under control 4. Hypothyroidism - thyroid cancer s/p thyroidectomy. -Continues Synthroid 5. LUBA - Night time CPAP. 6. ?CHF -patient/family uncertain whether she has the diagnosis. Patient on 80 mg of furosemide at home. Not on exacerbation this time - Resumed furosemide at home dose - Follows at Dr. Garcia office. 7. HLD Continue statin VS,Fishbone, I+O VS, Fishbone, I+O Laboratory Tests 05/21/19 06:49 Red Blood Count 3.89 L, Mean Corpuscular Volume 94.3, Mean Corpuscular Hemoglobin 29.0, Mean Corpuscular Hemoglobin Concent 30.8 L, Red Cell Distribution Width 16.6 H, Calcium Level 8.8 Vital Signs Date Time Temp Pulse Resp B/P (MAP) Pulse Ox O2 Delivery O2 Flow Rate FiO2 05/21/19 14:00 98.0 83 18 133/58 (83) 90 05/21/19 04:15 3.0 05/19/19 12:45 Nasal Cannula I&O- Last 24 Hours up to 6 AM 05/21/19 05:59 Intake Total 1400 ml Output Total 2350 ml Balance -950 ml PETRONA JASON DO May 21, 2019 19:33
[2019-05-21 20:00] VITALS: BP 145/65
[2019-05-21] MEDS: FUROSEMIDE 40 MG TAB PO SCH (21:10)
[2019-05-21] MEDS: LEVEMIR (INSULIN DETEMIR) 1 UNITS/0.01ML SC SCH (21:11)
[2019-05-22 04:00] VITALS: BP 127/59
[2019-05-22] MEDS: HumaLOG INSULIN (NovoLOG) PER UNIT SC SCH ×2 (05:39→12:00)
[2019-05-22] MEDS: HEPARIN SOD (PORCINE) 5000 UNITS/ML VIAL SC SCH (05:40)
[2019-05-22] MEDS ORDERED: POTASSIUM CHLORIDE 10 MEQ SR TABLET PO ONE (08:00)
[2019-05-22] MEDS: LOSARTAN 50 MG TAB PO SCH (08:45)
[2019-05-22] MEDS: LEVOTHYROXINE 100 MCG (0.1MG) VIAL IV SCH (08:45)
[2019-05-22] MEDS: FUROSEMIDE 40 MG TAB PO SCH (08:45)
[2019-05-22 08:46] VITALS: BP 127/59
[2019-05-22] MEDS: ATENOLOL 25 MG TAB PO SCH (08:46)
--- NOTE | 2019-05-22 20:28 | DS.PDOC ---
Discharge Summary General Date of Admission May 19, 2019 at 11:02 Date of Discharge 05/22/19 Primary Care Physician: Megan Gillis Attending Physician: PETRONA JASON DO Discharge Summary PROCEDURES PERFORMED DURING STAY: None ADMITTING DIAGNOSES: 1. .1. SBO 2. DM 3. HTN 4. Hypothyroidism - 5. LUBA 6. CHF DISCHARGE DIAGNOSES: 1. 1. SBO 2. DM 3. HTN 4. Hypothyroidism - 5. LUBA 6. CHF COMPLICATIONS/CHIEF COMPLAINT: Small Bowel Obstruction. HISTORY OF PRESENT ILLNESS: The patient is a 73-year-old female who presents again with a small bowel obstruction secondary to her hernia in the infraumbilical area. She has had numerous intra-abdominal procedures as well as hernia repairs and has a small bowel obstruction again with abdominal distension, nausea, vomiting and abdominal pain along the hernia site. The patient's past medical history is significant for a history of thyroidectomy abdominal hysterectomy sigmoid colectomy, umbilical hernia repair, partial bowel resection, cataract surgery, knee surgery, severe morbid obesity, small bowel obstructions, diabetes mellitus, obstructive sleep apnea, hypertension, hyperlipidemia, congestive heart failure. HOSPITAL COURSE: During hospital stay following issues were addressed 1. SBO Improved after NG tube placed - Recurrent history of SBO in setting of abdominal hernias. - NG tube removed subsequently. Tolerated soft diet - Patient will benefit from bariatric surgery after discharge - Symptoms already improving. - Pain management 2. DM - ISS. Monitor BS. -Glucose level is under control 3. HTN Resumed home medication Blood pressures under control 4. Hypothyroidism - thyroid cancer s/p thyroidectomy. -Continues Synthroid 5. LUBA - Night time CPAP. 6. ?CHF -patient/family uncertain whether she has the diagnosis. Patient on 80 mg of furosemide at home. Not on exacerbation this time - Resumed furosemide at home dose - Follows at Dr. Garcia office. 7. HLD Continue statin DISCHARGE MEDICATIONS: Please see below. ALLERGIES: Please see below. PHYSICAL EXAMINATION ON DISCHARGE: General: No acute distress, Alert Eyes: Normal sclera, EOMI, MARGARET HENT: Atraumatic, neck supple Cardiovascular: Normal rate, normal rhythm Pulmonary: Clear to auscultation b/l, no wheezing GI: Soft, nontender and moderate distension Neuro: CN grossly intact. No focal deficits. Psych: oriented x 3 LABORATORY DATA: Please see below. IMAGING: PROCEDURE INFORMATION: Exam: CT Abdomen and Pelvis Without Contrast Exam date and time: 05/19/2019 6:49 AM Clinical history: 73 years old, female; Abdominal pain; Generalized; Additional info: Abd pain, intractable vomiting, contrast allergy TECHNIQUE: Imaging protocol: Computed tomography of the abdomen and pelvis without contrast. Radiation optimization: All CT scans at this facility use at least one of these dose optimization techniques: automated exposure control; mA and/or kV adjustment per patient size (includes targeted exams where dose is matched to clinical indication); or iterative reconstruction. COMPARISON: CT ABD PELVIS W/O CONTRAST 03/09/2017 1:24 AM FINDINGS: Lungs: Mild bilateral basilar chronic lung changes seen. Liver: Normal. No mass. Gallbladder and bile ducts: Normal. No calcified stones. No ductal dilation. Pancreas: Normal. No ductal dilation. Spleen: Normal. No splenomegaly. Adrenals: Normal. No mass. Kidneys and ureters: Normal. No hydronephrosis. Stomach and bowel: There is a 3.1 cm duodenal diverticulum arising from the third portion of the duodenum. The stomach is markedly distended with fluid and air and some dense material at the fundus. The patient is status post low colonic resection with grossly intact colocolonic anastomosis in the deep pelvis. There is mild sigmoid colon diverticulosis. Patient is likely status post appendectomy. Appendix: See Stomach And Bowel Finding. Intraperitoneal space: Unremarkable. No free air. No significant fluid collection. Vasculature: There are calcifications at the aortic root and coronary arteries. There is moderate aortic and iliac calcifications. Lymph nodes: Unremarkable. No enlarged lymph nodes. Bladder: Unremarkable as visualized. Reproductive: Patient status post hysterectomy. There is no adnexal mass. Bones/joints: There are bulky anterior thoracic spine osteophytes. There are marked T12-L1 and L5 S1 disc degenerative changes. There is grade 1 anterolisthesis of L5 on S1. There are multilevel facet arthrosis. Soft tissues: There are 2 adjacent lower anterior abdominal wall defects resulting in hernia. The first hernia is lobulated measuring 7.9 cm with a neck of 4.1 cm containing a portion of the transverse colon. The second hernia just to the right and more inferior measuring 6.4 x 5.1 cm with a relatively narrow neck measuring 2.1 cm containing small bowel loop with proximal dilatation of the small bowel loops measuring up to 3.8 cm with fecalization and collapse of the distal ileum-small bowel obstruction. IMPRESSION: 1. 2 contiguous lower anterior abdominal wall hernia one to the left with relatively wide neck containing portion of the colon and the second is slightly more inferior to the right with narrow neck containing small bowel loop resulting in proximal small bowel obstruction. 2. Significantly distended stomach with fluid and food like material likely due to the above-described bowel obstruction however underlying gastric dysmotility disorder or gastric outlet obstruction cannot be excluded. 3. Duodenal diverticulum. 4. Status post low colonic resection with intact anastomosis into the pelvis. 5. Mild sigmoid colon diverticulosis. 6. Status post hysterectomy. 7. Lumbar spine scoliosis with significant T12 L1-L5 S1 disc degenerative changes. Electronically signed by: Brooklynn Fabian On 05/19/2019 07:39:36 AM DD: BROOKLYNN FABIAN MD 05/19/19 0649 PROGNOSIS: Favorable ACTIVITY: As tolerated DIET: Diabetes diet DISCHARGE PLAN: Home DISPOSITION: 01 Home, Self-Care. DISCHARGE INSTRUCTIONS: 1. Follow-up with PCP and surgeon ITEMS TO FOLLOWUP ON ON OUTPATIENT: 1. BMP in 1 week DISCHARGE CONDITION: Stable TIME SPENT ON DISCHARGE: Greater than 20 minutes. Vital Signs/I&Os Vital Signs Date Time Temp Pulse Resp B/P (MAP) Pulse Ox O2 Delivery O2 Flow Rate FiO2 05/22/19 08:46 66 127/59 05/22/19 04:00 96.8 20 94 05/21/19 04:15 3.0 05/19/19 12:45 Nasal Cannula I&O- Last 24 Hours up to 6 AM 05/22/19 05:59 Intake Total 2945 ml Output Total 1750 ml Balance 1195 ml Laboratory Data Labs 24H Laboratory Tests 2 05/21/19 20:25: Bedside Glucose (Misc Panel) 144H 05/21/19 23:23: Bedside Glucose (Misc Panel) 97 05/22/19 05:32: Bedside Glucose (Misc Panel) 72L 05/22/19 11:41: Bedside Glucose (Misc Panel) 89 FSBS Laboratory Tests Test 05/21/19 20:25 05/21/19 23:23 05/22/19 05:32 05/22/19 11:41 Range/Units Bedside Glucose (Misc Panel) 144 97 72 89 83-110 MG/DL Discharge Medications Scheduled Allopurinol (Zyloprim) 300 Mg Tab, 300 MG PO DAILY, (Reported) Amitriptyline HCl (Amitriptyline HCl) 10 Mg Tab, 10 MG PO QHS, (Reported) Aspirin (Aspirin EC) 81 Mg Tabec, 81 MG PO QHS, (Reported) Atenolol (Atenolol) 25 Mg Tablet, 25 MG PO BID, (Reported) Cholecalciferol (Vitamin D3) (Vitamin D3) 5,000 Unit Capsule, 5,000 UNIT PO DAILY, (Reported) Cyanocobalamin (Vitamin B-12) (Vitamin B-12) 500 Mcg Tab, 500 MCG PO DAILY, (Reported) Furosemide (Furosemide) 80 Mg Tablet, 40 MG PO BID, (Reported) Insulin Glargine,Hum.rec.anlog (Toujeo Solostar) 300 Unit/Ml Inj, 72 UNIT SC DAILY, (Reported) Insulin Human Lispro (Humalog) 1 Units/0.01 Ml Inj, 20 UNITS SC BID, (Reported) BEFORE LUNCH AND DINNER Levothyroxine Sodium (Synthroid) 112 Mcg Tablet, 112 MCG PO DAILY, (Reported) Losartan Potassium (Losartan Potassium) 100 Mg Tab, 25 MG PO BID, (Reported) Spironolactone (Spironolactone) 25 Mg Tab, 12.5 MG PO QHS, (Reported) Scheduled PRN Acetaminophen (Acetaminophen) 500 Mg Tab, 1,000 MG PO Q6H PRN for PAIN, ( Reported) Allergies Coded Allergies: Contrast Media (Unverified Allergy, Unknown, 08/08/16) exenatide (Verified Allergy, Unknown, 05/19/19) nitrofurantoin (Verified Allergy, Unknown, 05/19/19) phenol (Verified Allergy, Unknown, 05/19/19) TAPE (Verified Adverse Reaction, Intermediate, ERYTHEMA ALSO WITH BANDAIDS, 08/08/16) PETRONA JASON DO May 22, 2019 20:28
== END 2019-05-22 13:25 | disposition home or self-care (01) | DRG 394 ==
LOC: M ED 04:43 → M ED INP 11:02 → M PCU 13:27 → M MS4PR 05-20 23:14
PROVIDERS: ADMIT Student in an Organized Health Care Education/Training Program; ATTEND Internal Medicine
DX: K42.0 Umbilical hernia with obstruction, without gangrene (principal); Z68.43 Body mass index [BMI] 50.0-59.9, adult; E11.9 Type 2 diabetes mellitus without complications; G47.33 Obstructive sleep apnea (adult) (pediatric); I10 Essential (primary) hypertension; E78.5 Hyperlipidemia, unspecified; E89.0 Postprocedural hypothyroidism; E66.01 Morbid (severe) obesity due to excess calories; Z90.49 Acquired absence of other specified parts of digestive tract; Z98.49 Cataract extraction status, unspecified eye; Z96.652 Presence of left artificial knee joint; Z90.710 Acquired absence of both cervix and uterus; Z79.82 Long term (current) use of aspirin; Z79.4 Long term (current) use of insulin; Z79.899 Other long term (current) drug therapy; Z88.8 Allergy status to other drugs, medicaments and biological substances; Z91.041 Radiographic dye allergy status; Z91.048 Other nonmedicinal substance allergy status

== ENCOUNTER 2020-10-21 14:28 | Emergency (ER) | payer MEDICARE ==
[~2020-10-21] VITALS: Ht 152.4 cm; Wt 130.0 kg
[~2020-10-21 14:28] MED LIST changes: +ATEN25TA PO; +CVS400CA PO; -CYAN500T9 PO; +D3 U5000 PO; +FURO80TA2 PO; +SYNT112T2 PO; +VITA500T37 PO
[2020-10-21 14:29] VITALS: BP 174/79
--- OUTSIDE RECORDS SUMMARY | 2020-10-21 14:45 | CCD ---
Author Author [facility] Organization [facility] Address Unknown Phone Unavailable Care Team Providers Care Clinical Research Technician Name Role Phone Fish, B Mraio RANKIN Unavailable Unavailable Fish, B Mario RANKIN Unavailable Unavailable Fish, B Mario RANKIN Unavailable Unavailable Fish, B Mario RANKIN Unavailable Unavailable Fish, B Mario RANKIN Unavailable Unavailable Fish, B Mario RANKIN Unavailable Unavailable Fish, B Mario RANKIN Unavailable Unavailable Fish, B Mario RANKIN Unavailable Unavailable Fish, B Mario RANKIN Unavailable Unavailable Fish, B Mario RANKIN Unavailable Unavailable Fish, B Mario RANKIN Unavailable Unavailable Fish, B Mario RANKIN Unavailable Unavailable Fish, B Mario RANKIN Unavailable Unavailable Fish, B Mario RANKIN Unavailable Unavailable Fish, B Mario RANKIN Unavailable Unavailable Fish, B Mario RANKIN Unavailable Unavailable Fish, B Mario RANKIN Unavailable Unavailable Fish, B Mario RANKIN Unavailable Unavailable Fish, B Mario RANKIN Unavailable Unavailable Fish, B Mario RANKIN Unavailable Unavailable Fish, B Mario RANKIN Unavailable Unavailable Fish, B Mario RANKIN Unavailable Unavailable Fish, B Mario RANKIN Unavailable Unavailable Fish, B Mario RANKIN Unavailable Unavailable Fish, B Mario RANKIN Unavailable Unavailable Fish, B Mario RANKIN Unavailable Unavailable Fish, B Mario RANKIN Unavailable Unavailable Fish, B Mario RANKIN Unavailable Unavailable Fish, B Mario RANKIN Unavailable Unavailable Fish, B Mario RANKIN Unavailable Unavailable Fish, B Mario RANKIN Unavailable Unavailable Fish, B Mario RANKIN Unavailable Unavailable Fish, B Mario RANKIN Unavailable Unavailable Fish, B Mario RANKIN Unavailable Unavailable Fish, B Mario RANKIN Unavailable Unavailable Fish, B Mario RANKIN Unavailable Unavailable Fish, B Mario RANKIN Unavailable Unavailable Fish, B Mario RANKIN Unavailable Unavailable Fish, B Mario RANKIN Unavailable Unavailable Fish, B Mario RANKIN Unavailable Unavailable Fish, B Mario RANKIN Unavailable Unavailable Fish, B Mario RANKIN Unavailable Unavailable Fish, B Mario RANKIN Unavailable Unavailable Fish, B Mario RANKIN Unavailable Unavailable Fish, B Mario RANKIN Unavailable Unavailable Fish, B Mario RANKIN Unavailable Unavailable Fish, B Mario RANKIN Unavailable Unavailable Fish, B Mario RANKIN Unavailable Unavailable Fish, B Mario RANKIN Unavailable Unavailable Fish, B Mario RANKIN Unavailable Unavailable Fish, B Mario RANKIN Unavailable Unavailable Fish, B Mario RANKIN Unavailable Unavailable Fish, B Mario RANKIN Unavailable Unavailable LePine, M Megan DEER FARM WORKER Unavailable Unavailable LePine, M Megan DEER FARM WORKER Unavailable Unavailable [place], M Megan DEER FARM WORKER Unavailable Unavailable [place], M Megan DEER FARM WORKER Unavailable Unavailable [place], M Megan DEER FARM WORKER Unavailable Unavailable Le[place]ine, M Megan DEER FARM WORKER Unavailable Unavailable [place], M Megan DEER FARM WORKER Unavailable Unavailable [place], M Megan DEER FARM WORKER Unavailable Unavailable [place], M Megan DEER FARM WORKER Unavailable Unavailable Le[place], M Megan DEER FARM WORKER Unavailable Unavailable [place], M Megan DEER FARM WORKER Unavailable Unavailable [place], M Megan DEER FARM WORKER Unavailable Unavailable [place], M Megan DEER FARM WORKER Unavailable Unavailable [place], M Megan DEER FARM WORKER Unavailable Unavailable [place], M Megan DEER FARM WORKER Unavailable Unavailable [place], M Megan DEER FARM WORKER Unavailable Unavailable [place], M Megan DEER FARM WORKER Unavailable Unavailable [place], M Megan DEER FARM WORKER Unavailable Unavailable [place], M Megan DEER FARM WORKER Unavailable Unavailable [place], M Megan DEER FARM WORKER Unavailable Unavailable [place], M Megan DEER FARM WORKER Unavailable Unavailable [place], M Megan DEER FARM WORKER Unavailable Unavailable [place], M Megan DEER FARM WORKER Unavailable Unavailable [place], M Megan DEER FARM WORKER Unavailable Unavailable [place], M Megan DEER FARM WORKER Unavailable Unavailable [place], M Megan DEER FARM WORKER Unavailable Unavailable [place], M Megan DEER FARM WORKER Unavailable Unavailable [place], M Megan DEER FARM WORKER Unavailable Unavailable [place], M Megan DEER FARM WORKER Unavailable Unavailable [place], M Megan DEER FARM WORKER Unavailable Unavailable [place], M Megan DEER FARM WORKER Unavailable Unavailable [place], M Megan DEER FARM WORKER Unavailable Unavailable [place], M Megan DEER FARM WORKER Unavailable Unavailable [place], M Megan DEER FARM WORKER Unavailable Unavailable [place], M Megan DEER FARM WORKER Unavailable Unavailable [place], M Megan DEER FARM WORKER Unavailable Unavailable [place], M Megan DEER FARM WORKER Unavailable Unavailable [place], M Megan DEER FARM WORKER Unavailable Unavailable [place], M Megan DEER FARM WORKER Unavailable Unavailable Le[place], M Megan DEER FARM WORKER Unavailable Unavailable Le[place], M Megan DEER FARM WORKER Unavailable Unavailable [place], M Megan DEER FARM WORKER Unavailable Unavailable [place], M Megan DEER FARM WORKER Unavailable Unavailable [place], M Megan DEER FARM WORKER Unavailable Unavailable [place], M Megan DEER FARM WORKER Unavailable Unavailable [place], M Megan DEER FARM WORKER Unavailable Unavailable [place], M Megan DEER FARM WORKER Unavailable Unavailable [place], M Megan DEER FARM WORKER Unavailable Unavailable [place], M Megan DEER FARM WORKER Unavailable Unavailable [place], M Megan DEER FARM WORKER Unavailable Unavailable Le[place], M Megan DEER FARM WORKER Unavailable Unavailable Le[place], M Megan DEER FARM WORKER Unavailable Unavailable [place], M Megan DEER FARM WORKER Unavailable Unavailable [place], M Megan DEER FARM WORKER Unavailable Unavailable [place], M Megan DEER FARM WORKER Unavailable Unavailable [place], M Megan DEER FARM WORKER Unavailable Unavailable [place], M Megan DEER FARM WORKER Unavailable Unavailable [place], M Megan DEER FARM WORKER Unavailable Unavailable [place], M Megan DEER FARM WORKER Unavailable Unavailable [place], M Megan DEER FARM WORKER Unavailable Unavailable [place], M Megan DEER FARM WORKER Unavailable Unavailable [place], M Megan DEER FARM WORKER Unavailable Unavailable [place], M Megan DEER FARM WORKER Unavailable Unavailable [place], M Megan DEER FARM WORKER Unavailable Unavailable [place], M Megan DEER FARM WORKER Unavailable Unavailable [place], M Megan DEER FARM WORKER Unavailable Unavailable [place], M Megan DEER FARM WORKER Unavailable Unavailable [place], M Megan DEER FARM WORKER Unavailable Unavailable [place], M Megan DEER FARM WORKER Unavailable Unavailable [place], M Megan DEER FARM WORKER Unavailable Unavailable [place], M Megan DEER FARM WORKER Unavailable Unavailable [place], M Megan DEER FARM WORKER Unavailable Unavailable [place], M Megan DEER FARM WORKER Unavailable Unavailable [place], M Megan DEER FARM WORKER Unavailable Unavailable [place], M Megan DEER FARM WORKER Unavailable Unavailable [place], M Megan DEER FARM WORKER Unavailable Unavailable [place], M Megan DEER FARM WORKER Unavailable Unavailable [place], M Megan DEER FARM WORKER Unavailable Unavailable [place], M Megan DEER FARM WORKER Unavailable Unavailable [place], M Megan DEER FARM WORKER Unavailable Unavailable [place], M Megan DEER FARM WORKER Unavailable Unavailable [place], M Megan DEER FARM WORKER Unavailable Unavailable [place], M Megan DEER FARM WORKER Unavailable Unavailable [place], M Megan DEER FARM WORKER Unavailable Unavailable [place], M Megan DEER FARM WORKER Unavailable Unavailable [place], M Megan DEER FARM WORKER Unavailable Unavailable [place], M Megan DEER FARM WORKER Unavailable Unavailable [place], M Megan DEER FARM WORKER Unavailable Unavailable [place], M Megan DEER FARM WORKER Unavailable Unavailable [place], M Megan DEER FARM WORKER Unavailable Unavailable [place], M Megan DEER FARM WORKER Unavailable Unavailable [place], M Megan DEER FARM WORKER Unavailable Unavailable [place], M Megan DEER FARM WORKER Unavailable Unavailable [place], M Megan DEER FARM WORKER Unavailable Unavailable [place], M Megan DEER FARM WORKER Unavailable Unavailable [place], M Megan DEER FARM WORKER Unavailable Unavailable [place], M Megan DEER FARM WORKER Unavailable Unavailable [place], M Megan DEER FARM WORKER Unavailable Unavailable [place], M Megan DEER FARM WORKER Unavailable Unavailable [place], M Megan DEER FARM WORKER Unavailable Unavailable [place], M Megan DEER FARM WORKER Unavailable Unavailable [place], M Megan DEER FARM WORKER Unavailable Unavailable [place], M Megan DEER FARM WORKER Unavailable Unavailable [place], M Megan DEER FARM WORKER Unavailable Unavailable [place], M Megan DEER FARM WORKER Unavailable Unavailable [place], M Megan DEER FARM WORKER Unavailable Unavailable [place], M Megan DEER FARM WORKER Unavailable Unavailable [place], M Megan DEER FARM WORKER Unavailable Unavailable [place], M Megan DEER FARM WORKER Unavailable Unavailable [place], M Megan DEER FARM WORKER Unavailable Unavailable [place], M Megan DEER FARM WORKER Unavailable Unavailable [place], M Megan DEER FARM WORKER Unavailable Unavailable Re-disclosure Warning The records that you are about to access may contain information from federally-assisted alcohol or drug abuse programs. If such information is present, then the following federally mandated warning applies: This information has been disclosed to you from records protected by federal confidentiality rules (42 CFR part 2). The federal rules prohibit you from making any further disclosure of this information unless further disclosure is expressly permitted by the written consent of the person to whom it pertains or as otherwise permitted by 42 CFR part 2. A general authorization for the release of medical or other information is NOT sufficient for this purpose. The Federal rules restrict any use of the information to criminally investigate or prosecute any alcohol or drug abuse patient.The records that you are about to access may contain highly sensitive health information, the redisclosure of which is protected by Article 27-F of the [facility] Public Health law. If you continue you may have access to information: Regarding HIV / AIDS; Provided by facilities licensed or operated by the [facility] Office of Mental Health; or Provided by the [facility] Office for People With Developmental Disabilities. If such information is present, then the following [facility] mandated warning applies: This information has been disclosed to you from confidential records which are protected by state law. State law prohibits you from making any further disclosure of this information without the specific written consent of the person to whom it pertains, or as otherwise permitted by law. Any unauthorized further disclosure in violation of state law may result in a fine or half-way sentence or both. A general authorization for the release of medical or other information is NOT sufficient authorization for further disc losure. Family History Family Member Name Family Member Gender Family Member Status Date o f Status Description Data Source(s) Unknown Unknown Problem [facility] ([facility]) Unknown Male Problem [facility] Unknown Female Problem [facility] ([facility]) Encounters Encounter Providers Location Date Indications Data Source(s ) Outpatient Attender: Megan Santana 06/02 03:20:00 PM EDT [facility] ([facility] ) Outpatient Referrer: Megan SOLOMON 02/24/2020 01:13:00 PM EDT [facility] Outpatient Attender: Megan Santana 02/18 02:00:00 PM EDT [facility] ([facility] ) Outpatient Attender: Megan Santana 12/24 03:00:00 PM EDT [facility] ([facility] ) Outpatient Referrer: Mario Nowak MD 11/27/2019 03:51:00 PM EDT [facility] Outpatient Attender: Megan Santana 09/20 02:20:00 PM EST [facility] ([facility] ) Immunizations Vaccine Date Status Description Data Source(s) COVID-19 VACCINE, MRNA-1273, LNP-S (MODERNA)/PF 10/08/2020 1 2:00:00 AM EST completed [facility] Influenza, injectable, MDCK, preservative free, ana maría valent 06/02/2020 03:33:00 PM EDT completed [facility] Medications Medication Brand Name Start Date Product Form Dose Route Admi nistrative Instructions Pharmacy Instructions Status Indications Reaction Description Data Source(s) Administration Of Flu Vaccine 06/02/2020 12:00:00 AM EDT completed [facility]) Medication administered onsite Furosemide 40 MG Oral Tablet Furosemide 03/10/2020 12:00:00 AM EDT ORAL active [facility] Shingrix Shingrix 02/19/2020 12:00:00 AM EDT activ e [facility] ([facility]) Rosuvastatin calcium 10 MG Oral Tablet Rosuvastatin Calcium 12/25/2019 12:00:00 AM EDT ORAL active [facility] ([facility]) Furosemide 80 MG Oral Tablet Furosemide 10/19/2019 12:00:00 AM EST active [facility] Insurance Providers Payer name Policy type / Coverage type Policy ID Covered constitution party ID Covered constitution party's relationship to montoya Policy [place] Plan Information MEDICARE C [id number] S [id number] AARP O [id number] S [id number] Medicare Part B [facility] Other 0 Se lf 0 MEDICARE [id number] SP [id number] AARP HEALTH CARE OPTIONS [id number] SP [id number] MEDICARE [id number] SP [id number] D Cigna Ins (pr) Medigap Part B [id number] Family Dependent [id number] BS [place] Medig[place] Part B [id number] Self [id number] [employer] Options Medigap Part B [id number] Self [id number] [place] Primary [id number] Self [id number] [facility] Opt Medigap Part B [id number] 11 Self [id number] 11 Medicare [place] Govt Servic Medicare Primary [id number] Self [id number] BS [place] Medigap Part B [id number] Self [id number] Cigna Ins (pr) Medigap Part B [id number] Family Dependent [id number] BS [place] Medigap Part B [id number] Self [id number] [employer] Options Medigap Part B [id number] Self [id number] [place] Primary [id number] Self [id number] Cigna Ins (pr) Medigap Part B [id number] Family Dependent [id number] BS [place] Medigap Part B [id number] Self [id number] [employer] Options Medigap Part B [id number] Self [id number] [place] Primary [id number] Self [id number] [facility] Opt Medigap Part B [id number] 11 Self [id number] 11 Medicare Natl Govt Servic Medicare Primary [id number] Self [id number] Cigna Ins (pr) Medigap Part B [id number] Family Dependent [id number] BS [place] Medigap Part B [id number] Self [id number] [employer] Options Medigap Part B [id number] Self [id number] [place] Primary [id number] Self [id number] Cigna Ins (pr) Medigap Part B [id number] Family Dependent [id number] BS [place] Medigap Part B [id number] Self [id number] [employer] Options Medigap Part B [id number] Self [id number] [place] Primary [id number] Self [id number] Cigna Ins (pr) Medigap Part B [id number] Family Dependent [id number] BS [place] Medigap Part B [id number] Self [id number] [facility] [facility] Options Medigap Part B [id number] Self [id number] [place] Primary [id number] Self [id number] [facility] Opt Medigap Part B [id number] 11 Self [id number] Medicare Nat[place] Govt Servic Medicare Primary [id number] Self [id number] AARP HEALTH CARE OPTIONS [id number] SP [id number] [facility] Options Medigap Part B [id number] Self [id number] [place] Primary [id number] Self [id number] [facility] Opt Medigap Part B [id number] 11 Self [id number] Medicare Natl Govt Servic Medicare Primary [id number] Self [id number] [facility] Opt Medigap Part B [id number] 11 Self [id number] Medicare [place] Govt Servic Medicare Primary [id number] Self [id number] Unicare Medigap Part B [id number] Family Dependent [id number] [facility] [facility] Options Medigap Part B [id number] Self [id number] Medicare (Part B) Medicare Primary [id number] Self [id number] [facility] [facility] Opt Medigap Part B [id number] 11 Self [id number] 11 Medicare [place]l Govt Servic Medicare Primary [id number] Self [id number] AARP O [id number] S [id number] MEDICARE C [id number] S [id number] D [place] MEDICARE PART B C [id number] S [id number] [facility] Opt Medigap Part B [id number] 11 Self [id number] Medicare [place] Govt Servic Medicare Primary [id number] Self [id number] [facility] Opt Medigap Part B [id number] 11 Self [id number] 11 Medicare Natl Govt Servic Medicare Primary [id number] Self [id number] BS [place] Medigap Part B [id number] Self [id number] [facility] Opt Medigap Part B Self Medicare [place]l Govt Servic Medicare Primary Self MEDICARE [id number] SP [id number] A [facility] Options Medigap Part B Self [place] Primary Self MEDICARE [id number] SP [id number] D MEDICARE C [id number] S [id number] A [place] MEDICARE PART B C [id number] S [id number] MEDICARE [id number] SP [id number] D MEDICARE [id number] SP [id number] [facility] [id number] Krista [id number] MEDICARE [id number] Krista [id number] D [id number] Surgeries/Procedures Procedure Description Date Indications Data Source(s) Diabetic Retinal Eye Exam 03/05/2020 12:00:00 AM EDT [facility] ([facility]) Results ID Date Data Source [id number] 06/02/2020 03:18:00 PM EDT [facility] ([facility]) Name Value Range Interpretation Code Description Data Steph rce(s) Supporting Document(s) Cholesterol in HDL [Mass/volume] in Serum or Plasma 44 mg/dL 35-60 [facility] ([facility]) Cholesterol [Mass/volume] in Serum or Plasma 253 mg/dL 131-200 [facility] ([facility]) Triglyceride [Mass/volume] in Serum or Plasma 226 mg/dL 30-150 [facility] ([facility]) Cholesterol in LDL [Mass/volume] in Serum or Plasma by calcu lation 164 CALC 50-159 [facility] ([facility]) ID Date Data Source [id number] 06/02/2020 03:18:00 PM EDT [facility] ([facility]) Name Value Range Interpretation Code Description Data Steph rce(s) Supporting Document(s) Glucose [Mass/volume] in Serum or Plasma 105 mg/dL 74-99 [facility] ([facility]) 100-125 mg/dL PRE-DIABETES/FASTING >126 mg/dL DIABETES/FASTING Urea nitrogen [Mass/volume] in Serum or Plasma 51 mg/dL 7-18 [facility] ([facility]) Creatinine 1.6 mg/dL 0.6-1.3 [facility] Sodium [Moles/volume] in Serum or Plasma 142 meq/L 136-145 [facility] ([facility]) Carbon dioxide, total [Moles/volume] in Serum or Plasma 25 meq/L 21 -32 [facility] ([facility]) Chloride [Moles/volume] in Serum or Plasma 103 meq/L 98-107 [facility] ([facility]) Potassium [Moles/volume] in Serum or Plasma 3.8 meq/L 3.5-5.1 [facility] ([facility]) Total Bilirubin 0.4 mg/dL 0.2-1.0 [facility] ([facility]) Calcium [Mass/volume] in Serum or Plasma 9.3 mg/dL 8.5-10.1 [facility] ([facility]) Alkaline phosphatase isoenzyme [Units/volume] in Serum or Pl asma 104 mg/dL 46-116 [facility] ([facility]) Aspartate aminotransferase [Enzymatic activity/volume] in Serum or Plasma 20 U/L 15-37 [facility] ([facility] ) Alanine aminotransferase [Enzymatic activity/volume] in Seru m or Plasma 23 U/L 12-78 [facility] ([facility]) Albumin [Mass/volume] in Serum or Plasma 3.8 g/dL 3.4-5.0 [facility] ([facility]) Proteinase 3 Ab [Units/volume] in Serum 8.2 g/dL 6.4-8.2 [facility] ([facility]) Glomerular filtration rate/1.73 sq M pre dicted among non-blacks [Volume Rate/Area] in Serum or Plasma by Creatinine-based formula (MDRD) 32 mL/min [facility] A/G Ratio 0.86 CALC 1.00-1.90 [facility] Glomerular filtration rate/1.73 sq M pre dicted among blacks [Volume Rate/Area] in Serum or Plasma by Creatinine-based formula (MDRD) 38 mL/min [facility] <content>CHRONIC KIDNEY DISEASE STAGING PER NKF</content>
<content></content>
<content>STAGE I & II GFR >= 60 NORMAL TO MILDLY DECREASED</content>
<content>STAGE III GFR 30-59 MODERATELY DECREASED</content>
<content>STAGE IV GFR 15-29 SEVERELY DECREASED</content>
<content>STAGE V GFR <15 VERY LITTLE GFR LEFT</content>
<content>ESRD GFR <15 ON QUALITY COMPLIANCE CONSULTANT</content>
<content></content> ID Date Data Source [id number] 06/02/2020 03:18:00 PM EDT [facility] Name Value Range Interpretation Code Description Data Steph rce(s) Supporting Document(s) Hemoglobin A1c/Hemoglobin.total in Blood 7.3 % [facility] ([facility]) Lab Result Notes: Pre-Diabetes 5.7 - 6.4 % Diabetes = or > 6.5% Glucose mean value [Mass/volume] in Blood Estimated fr om glycated hemoglobin 163 mg/dL 60-110 [facility] ID Date Data Source [id number] 06/02/2020 03:18:00 PM EDT [facility]) Name Value Range Interpretation Code Description Data Steph rce(s) Supporting Document(s) Leukocytes [#/volume] in Blood by Automated count 9.6 x10*3/UL 4.1-10 .9 [facility] Erythrocytes [#/volume] in Blood by Automated count 4.45 x10*6/UL 4.2 0-6.30 [facility] ([facility]) Hemoglobin [Mass/volume] in Blood 12.8 g/dL 12.0-18.0 [facility] ([facility]) Hematocrit [Volume Fraction] of Blood by Automated count 38.0 % 3 7.0-51.0 [facility] ([facility]) MCV 85.3 fL 80.0-97.0 [facility] Erythrocyte distribution width [Ratio] by Automated count 15.8 % 11.6-13.7 [facility] ([facility]) MCHC 33.7 g/dL 31.0-38.0 [facility] MCH 28.8 pg 26.0-32.0 [facility] MPV 9.0 FL 7.8-11.0 [facility] Platelets [#/volume] in Blood by Automated count 270 x10*3/UL 140-440 [facility] ([facility]) Lymph % 22.3 % 10.0-58.5 [facility] Neut % 70.4 % 37.0-92.0 [facility] Mid % 7.3 % 1.7-9.3 [facility] Lymph # 2.1 x10*3/UL 0.6-4.1 [facility] ([facility]) Mid # 0.8 x10*3/UL 0.1-0.6 [facility] ([facility]) Neut # 6.7 x10*3/UL 2.0-7.8 [facility] ([facility]) ID Date Data Source [id number] 03/03/2020 12:00:00 AM EDT [facility] Megan Wood Anp Patient Name: TOMEKA [id number] [facility] Date of : 1945[place] [address] Date of Exam: 03/03/2020#: Fax: [phone] EXAM: US HEAD AND NECK SOFT TISSUECLINICAL INFORMATION: Cough. Has a history of thyroid malignancy andbilateral thyroidectomy.Sonographic evaluation of the bilateral thyroid bed shows evidence forprevious thyroidectomy. Muscle tissue are seen. I do not see residualthyroid tissue, mass, or adenopathy in these images. The right and leftthyroid bed and region where the isthmus would have been appear without anythyroid tissue or residual.IMPRESSION:1. Negative soft-tissue neck ultrasound for mass in the thyroid bed in thispatient who is status post thyroidectomy for thyroid malignancy.Accredited by the [employer] [place] [employer] in General Ultrasound.Hugo Coon, GENET/Nawaf you for referring TOMEKA BAPTISTE to our office. Electronically Signed - HUGO COON MD 03/04/20 8:12 Name Value Range Interpretation Code Description Data Steph rce(s) Supporting Document(s) ID Date Data Source [id number] 12/20/2019 10:00:00 AM EDT [facility] ([facility]) Name Value Range Interpretation Code Description Data Steph rce(s) Supporting Document(s) Thyrotropin [Units/volume] in Serum or Plasma by Detec tion limit <= 0.05 mIU/L 2.93 uIU/mL 0.36-3.74 [facility] ([facility] ) ID Date Data Source [id number] 12/20/2019 10:00:00 AM EDT [facility] ([facility]) Name Value Range Interpretation Code Description Data Steph rce(s) Supporting Document(s) Triglyceride [Mass/volume] in Serum or Plasma 156 mg/dL 30-150 [facility] ([facility]) Cholesterol [Mass/volume] in Serum or Plasma 238 mg/dL 131-200 [facility] ([facility]) Cholesterol in LDL [Mass/volume] in Serum or Plasma by calcu lation 165 CALC 50-159 [facility] ([facility]) Cholesterol in HDL [Mass/volume] in Serum or Plasma 42 mg/dL 35-60 [facility] ([facility]) ID Date Data Source [id number] 12/20/2019 10:00:00 AM EDT [facility] ([facility]) Name Value Range Interpretation Code Description Data Steph rce(s) Supporting Document(s) Urea nitrogen [Mass/volume] in Serum or Plasma 29 mg/dL 7-18 [facility] ([facility]) Glucose [Mass/volume] in Serum or Plasma 137 mg/dL 74-99 [facility] ([facility]) 100-125 mg/dL PRE-DIABETES/FASTING >126 mg/dL DIABETES/FASTING Potassium [Moles/volume] in Serum or Plasma 4.8 meq/L 3.5-5.1 [facility] ([facility]) Creatinine 1.4 mg/dL 0.6-1.3 [facility] ([facility]) Sodium [Moles/volume] in Serum or Plasma 141 meq/L 136-145 [facility] ([facility]) Carbon dioxide, total [Moles/volume] in Serum or Plasma 32 meq/L 21 -32 [facility] ([facility]) Chloride [Moles/volume] in Serum or Plasma 103 meq/L 98-107 [facility] ([facility]) Calcium [Mass/volume] in Serum or Plasma 9.3 mg/dL 8.5-10.1 [facility] ([facility]) Alkaline phosphatase isoenzyme [Units/volume] in Serum or Pl asma 107 mg/dL 46-116 [facility] ([facility]) Total Bilirubin 0.3 mg/dL 0.2-1.0 [facility] ([facility]) Albumin [Mass/volume] in Serum or Plasma 3.4 g/dL 3.4-5.0 [facility] ([facility]) Alanine aminotransferase [Enzymatic activity/volume] in Seru m or Plasma 22 U/L 12-78 [facility] ([facility]) Aspartate aminotransferase [Enzymatic activity/volume] in Serum or Plasma 18 U/L 15-37 [facility] ([facility] ) Proteinase 3 Ab [Units/volume] in Serum 6.9 g/dL 6.4-8.2 [facility] A/G Ratio 0.97 CALC 1.00-1.90 [facility] Glomerular filtration rate/1.73 sq M pre dicted among non-blacks [Volume Rate/Area] in Serum or Plasma by Creatinine-based formula (MDRD) 37 mL/min [facility] Glomerular filtration rate/1.73 sq M pre dicted among blacks [Volume Rate/Area] in Serum or Plasma by Creatinine-based formula (MDRD) 45 mL/min [facility] <content>CHRONIC KIDNEY DISEASE STAGING PER NKF</content>
<content></content>
<content>STAGE I & II GFR >= 60 NORMAL TO MILDLY DECREASED</content>
<content>STAGE III GFR 30-59 MODERATELY DECREASED</content>
<content>STAGE IV GFR 15-29 SEVERELY DECREASED</content>
<content>STAGE V GFR <15 VERY LITTLE GFR LEFT</content>
<content>ESRD GFR <15 ON QUALITY COMPLIANCE CONSULTANT</content>
<content></content> ID Date Data Source [id number] 12/20/2019 10:00:00 AM EDT [facility]) Name Value Range Interpretation Code Description Data Steph rce(s) Supporting Document(s) Hemoglobin A1c/Hemoglobin.total in Blood 7.5 g/dL 4.8-5.6 [facility] Lab Result Notes: Pre-Diabetes 5.7 - 6.4 % Diabetes = or > 6.5% Glucose mean value [Mass/volume] in Blood Estimated fr om glycated hemoglobin 169 mg/dL 60-110 [facility] ID Date Data Source [id number] [facility] Name Value Range Interpretation Code Description Data Steph rce(s) Supporting Document(s) Leukocytes [#/volume] in Blood by Automated count 7.5 x10*3/UL 4.1-10 .9 [facility] ([facility]) Erythrocytes [#/volume] in Blood by Automated count 4.56 x10*6/UL 4.2 0-6.30 [facility] ([facility]) Hemoglobin [Mass/volume] in Blood 12.9 g/dL 12.0-18.0 [facility] ([facility]) Hematocrit [Volume Fraction] of Blood by Automated count 39.4 % 3 7.0-51.0 [facility] ([facility]) MCV 86.3 fL 80.0-97.0 [facility] Erythrocyte distribution width [Ratio] by Automated count 14.9 % 11.6-13.7 [facility] ([facility]) Platelets [#/volume] in Blood by Automated count 286 x10*3/UL 140-440 [facility] ([facility]) MCH 28.3 pg 26.0-32.0 [facility] MCHC 32.7 g/dL 31.0-38.0 [facility] MPV 9.3 FL 7.8-11.0 [facility] Mid % 6.9 % 1.7-9.3 [facility] Lymph % 21.3 % 10.0-58.5 [facility] Lymph # 1.6 x10*3/UL 0.6-4.1 [facility] ([facility]) Neut % 71.8 % 37.0-92.0 [facility] Neut # 5.4 x10*3/UL 2.0-7.8 [facility] ([facility]) Mid # 0.5 x10*3/UL 0.1-0.6 [facility] ([facility]) ID Date Data Source [id number] 09/20/2019 03:11:00 PM EST [facility] ([facility]) Name Value Range Interpretation Code Description Data Steph rce(s) Supporting Document(s) Glucose [Mass/volume] in Serum or Plasma 118 mg/dL 74-99 [facility] ([facility]) 100-125 mg/dL PRE-DIABETES/FASTING >126 mg/dL DIABETES/FASTING Creatinine 1.3 mg/dL 0.6-1.3 [facility] ([facility]) Urea nitrogen [Mass/volume] in Serum or Plasma 42 mg/dL 7-18 [facility] ([facility]) Sodium [Moles/volume] in Serum or Plasma 139 meq/L 136-145 [facility] ([facility]) Carbon dioxide, total [Moles/volume] in Serum or Plasma 28 meq/L 21 -32 [facility] ([facility]) Chloride [Moles/volume] in Serum or Plasma 104 meq/L 98-107 [facility] ([facility]) Potassium [Moles/volume] in Serum or Plasma 3.8 meq/L 3.5-5.1 [facility] ([facility]) Glomerular filtration rate/1.73 sq M pre dicted among blacks [Volume Rate/Area] in Serum or Plasma by Creatinine-based formula (MDRD) 49 mL/min [facility] ([facility]) <content>CHRONIC KIDNEY DISEASE STAGING PER NKF</content>
<content></content>
<content>STAGE I & II GFR >= 60 NORMAL TO MILDLY DECREASED</content>
<content>STAGE III GFR 30-59 MODERATELY DECREASED</content>
<content>STAGE IV GFR 15-29 SEVERELY DECREASED</content>
<content>STAGE V GFR <15 VERY LITTLE GFR LEFT</content>
<content>ESRD GFR <15 ON QUALITY COMPLIANCE CONSULTANT</content>
<content></content> Glomerular filtration rate/1.73 sq M pre dicted among non-blacks [Volume Rate/Area] in Serum or Plasma by Creatinine-based formula (MDRD) 40 mL/min [facility] ([facility]) Calcium [Mass/volume] in Serum or Plasma 9.7 mg/dL 8.5-10.1 [facility] ([facility]) ID Date Data Source [id number] 09/20/2019 03:11:00 PM EST [facility] ([facility]) Name Value Range Interpretation Code Description Data Steph rce(s) Supporting Document(s) Glucose mean value [Mass/volume] in Blood Estimated fr om glycated hemoglobin 171 mg/dL 60-110 [facility] Hemoglobin A1c/Hemoglobin.total in Blood 7.6 g/dL 4.8-5.6 [facility] Lab Result Notes: Pre-Diabetes 5.7 - 6.4 % Diabetes = or > 6.5% ID Date Data Source [id number] 09/20/2019 03:11:00 PM EST [facility] Name Value Range Interpretation Code Description Data Steph rce(s) Supporting Document(s) Leukocytes [#/volume] in Blood by Automated count 9.0 x10*3/UL 4.1-10 .9 [facility] Hemoglobin [Mass/volume] in Blood 12.2 g/dL 12.0-18.0 [facility] Erythrocytes [#/volume] in Blood by Automated count 4.28 x10*6/UL 4.2 0-6.30 [facility] Hematocrit [Volume Fraction] of Blood by Automated count 37.1 % 3 7.0-51.0 [facility] MCV 86.6 fL 80.0-97.0 [facility]) MCH 28.6 pg 26.0-32.0 [facility] ([facility] [place]) Platelets [#/volume] in Blood by Automated count 260 x10*3/UL 140-440 [facility] MCHC 33.0 g/dL 31.0-38.0 [facility] ([facility] [place]) Erythrocyte distribution width [Ratio] by Automated count 14.5 % 11.6-13.7 [facility] ([facility]) Lymph % 19.3 % 10.0-58.5 [facility]) MPV 9.1 FL 7.8-11.0 [facility]) Mid % 5.8 % 1.7-9.3 [facility]) Neut % 74.9 % 37.0-92.0 [facility] Mid # 0.5 x10*3/UL 0.1-0.6 [facility] ([facility]) Lymph # 1.7 x10*3/UL 0.6-4.1 [facility] ([facility]) Neut # 6.8 x10*3/UL 2.0-7.8 [facility] ([facility]) Procedure Vital Signs ID Date Data Source [id number] Name Value Range Interpretation Code Description Data Source(s) Body mass index (BMI) [Ratio] 54.7 kg/m2 54.7 k g/m2 [facility] ([facility]) Oxygen saturation in Arterial blood by Pulse oximetry 95 % 95 % [facility] ([facility]) Body weight 285.00 [lb_av] 285.00 [lb_av] [facility] ([facility]) Body height 60.5 [in_i] 60.5 [in_i] [facility] ([facility]) 5'0.50" Heart rate 72 /min 72 /min [facility] ([facility]) Diastolic blood pressure 62 mm[Hg] 62 mm[Hg] [facility] Systolic blood pressure 132 mm[Hg] 132 mm[Hg] M [facility] ([facility]) Body mass index (BMI) [Ratio] 55.7 kg/m2 55.7 k g/m2 [facility] ([facility]) Oxygen saturation in Arterial blood by Pulse oximetry 92 % 92 % [facility] ([facility]) RM Air Body weight 290.00 [lb_av] 290.00 [lb_av] [facility] ([facility]) Body height 60.5 [in_i] 60.5 [in_i] [facility] ([facility]) 5'0.50" Heart rate 73 /min 73 /min [facility] ([facility]) Diastolic blood pressure 60 mm[Hg] 60 mm[Hg] [facility] ([facility]) Systolic blood pressure 138 mm[Hg] 138 mm[Hg] [facility] ([facility]) Body mass index (BMI) [Ratio] 53.6 kg/m2 53.6 k g/m2 [facility] ([facility]) Body weight 279.00 [lb_av] 279.00 [lb_av] [facility] ([facility]) Body height 60.5 [in_i] 60.5 [in_i] [facility] ([facility]) 5'0.50" Heart rate 62 /min 62 /min [facility] ([facility]) Diastolic blood pressure 67 mm[Hg] 67 mm[Hg] [facility] ([facility]) Systolic blood pressure 118 mm[Hg] 118 mm[Hg] [facility] ([facility]) Body mass index (BMI) [Ratio] 53.8 kg/m2 53.8 k g/m2 [facility] ([facility]) Oxygen saturation in Arterial blood by Pulse oximetry 95 % 95 % [facility] ([facility]) Body weight 280.00 [lb_av] 280.00 [lb_av] [facility] ([facility]) Body height 60.5 [in_i] 60.5 [in_i] [facility] ([facility]) 5'0.50" Heart rate 73 /min 73 /min [facility] ([facility]) Diastolic blood pressure 62 mm[Hg] 62 mm[Hg] [facility] ([facility]) Systolic blood pressure 138 mm[Hg] 138 mm[Hg] [facility] ([facility])
--- NOTE | 2020-10-21 15:32 | REP ---
INDICATION: constipation. COMPARISON: March 11, 2017.. TECHNIQUE: Supine views of the abdomen, total of 4 views are provided. FINDINGS: Bowel gas pattern shows a dilated loop of what appears to be distal ileum in the right mid abdomen. There is air and stool in a nondistended colon proximally and distally. No other small bowel dilation is seen. 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 There is less small bowel distension than was present on the 2017 prior radiograph. IMPRESSION: There is a dilated loop of what appears to be distal small bowel in the right lower abdomen. Otherwise negative. There is formed stool in the proximal and distal colon but no colonic distention. <Electronically signed by Alo Oviedo > 10/21/20 [id number]
[2020-10-21] MEDS ORDERED: MAGNESIUM CITRATE 300 ML BTL PO ONE (17:10)
[2020-10-21 17:17] LABS: BASO % 0.3 % (0.0-1.0); EOS # 0.2 10^3/uL (0.0-0.5); EOS % 1.3 % (0.0-3.0); HEMATOCRIT 45.3 % (36.0-47.0); HEMOGLOBIN 13.8 g/dl (12.0-15.5); LYMPH # 2.6 10^3/uL (1.5-5.0); MEAN CORPUSCULAR HEMOGLOBIN 27.8 pg (27.0-33.0); MEAN CORPUSCULAR HGB CONC 30.5 g/dl (32.0-36.5); MEAN CORPUSCULAR VOLUME 91.3 fl (80.0-96.0); MONO # 0.6 10^3/uL (0.0-0.8); MONO % 4.6 % (2.0-8.0); NEUTROPHILS % 72.3 % (36.0-66.0); PLATELET COUNT, AUTOMATED 308 10^3/uL (150-450); RED BLOOD COUNT 4.96 10^6/uL (4.00-5.40); WHITE BLOOD COUNT 12.5 10^3/uL (4.0-10.0)
--- OUTSIDE RECORDS SUMMARY | 2020-10-21 17:29 | CCD ---
Author Author [facility] Organization [facility] Address Unknown Phone Unavailable Care Team Providers Care Cloth Finishing Range Tender Name Role Phone Fish, B Mario RANKIN Unavailable Unavailable Fish, B Mario RANKIN Unavailable Unavailable Fish, B Maroi RANKIN Unavailable Unavailable Fish, B Mario RANKIN Unavailable Unavailable Fish, B Mario RANKIN Unavailable Unavailable Fish, B Maroi RANKIN Unavailable Unavailable Fish, B Mario RANKIN [...] Mario RANKIN Unavailable Unavailable LePine, M Megan LEASING MACHINE TENDER Unavailable Unavailable LePine, M Megan LEASING MACHINE TENDER Unavailable Unavailable LePine, M Megan LEASING MACHINE TENDER Unavailable Unavailable LePine, M Megan LEASING MACHINE TENDER Unavailable Unavailable LePine, M Megan LEASING MACHINE TENDER Unavailable Unavailable LePine, M Megan LEASING MACHINE TENDER Unavailable Unavailable LePine, M Megan LEASING MACHINE TENDER Unavailable Unavailable LePine, M Megan LEASING MACHINE TENDER Unavailable Unavailable LePine, M Megan LEASING MACHINE TENDER Unavailable Unavailable LePine, M Megan LEASING MACHINE TENDER Unavailable Unavailable LePine, M Megan LEASING MACHINE TENDER Unavailable Unavailable LePine, M Megan LEASING MACHINE TENDER Unavailable Unavailable LePine, M Megan LEASING MACHINE TENDER Unavailable Unavailable LePine, M Megan LEASING MACHINE TENDER Unavailable Unavailable LePine, M Megan LEASING MACHINE TENDER Unavailable Unavailable LePine, M Megan LEASING MACHINE TENDER Unavailable Unavailable LePine, M Megan LEASING MACHINE TENDER Unavailable Unavailable LePine, M Megan LEASING MACHINE TENDER Unavailable Unavailable LePine, M Megan LEASING MACHINE TENDER Unavailable Unavailable LePine, M Megan LEASING MACHINE TENDER Unavailable Unavailable LePine, M Megan LEASING MACHINE TENDER Unavailable Unavailable LePine, M Megan LEASING MACHINE TENDER Unavailable Unavailable LePine, M Megan LEASING MACHINE TENDER Unavailable Unavailable LePine, M Megan LEASING MACHINE TENDER Unavailable Unavailable LePine, M Megan LEASING MACHINE TENDER Unavailable Unavailable LePine, M Megan LEASING MACHINE TENDER Unavailable Unavailable LePine, M Megan LEASING MACHINE TENDER Unavailable Unavailable LePine, M Megan LEASING MACHINE TENDER Unavailable Unavailable LePine, M Megan LEASING MACHINE TENDER Unavailable Unavailable LePine, M Megan LEASING MACHINE TENDER Unavailable Unavailable LePine, M Megan LEASING MACHINE TENDER Unavailable Unavailable LePine, M Megan LEASING MACHINE TENDER Unavailable Unavailable LePine, M Megan LEASING MACHINE TENDER Unavailable Unavailable LePine, M Megan LEASING MACHINE TENDER Unavailable Unavailable LePine, M Megan LEASING MACHINE TENDER Unavailable Unavailable LePine, M Megan LEASING MACHINE TENDER Unavailable Unavailable LePine, M Megan LEASING MACHINE TENDER Unavailable Unavailable LePine, M Megan LEASING MACHINE TENDER Unavailable Unavailable LePine, M Megan LEASING MACHINE TENDER Unavailable Unavailable LePine, M Megan LEASING MACHINE TENDER Unavailable Unavailable LePine, M Megan LEASING MACHINE TENDER Unavailable Unavailable LePine, M Megan LEASING MACHINE TENDER Unavailable Unavailable LePine, M Megan LEASING MACHINE TENDER Unavailable Unavailable LePine, M Megan LEASING MACHINE TENDER Unavailable Unavailable LePine, M Megan LEASING MACHINE TENDER Unavailable Unavailable LePine, M Megan LEASING MACHINE TENDER Unavailable Unavailable LePine, M Megan LEASING MACHINE TENDER Unavailable Unavailable LePine, M Megan LEASING MACHINE TENDER Unavailable Unavailable LePine, M Megan LEASING MACHINE TENDER Unavailable Unavailable LePine, M Megan LEASING MACHINE TENDER Unavailable Unavailable LePine, M Megan LEASING MACHINE TENDER Unavailable Unavailable LePine, M Megan LEASING MACHINE TENDER Unavailable Unavailable LePine, M Megan LEASING MACHINE TENDER Unavailable Unavailable LePine, M Megan LEASING MACHINE TENDER Unavailable Unavailable LePine, M Megan LEASING MACHINE TENDER Unavailable Unavailable LePine, M Megan LEASING MACHINE TENDER Unavailable Unavailable LePine, M Megan LEASING MACHINE TENDER Unavailable Unavailable LePine, M Megan LEASING MACHINE TENDER Unavailable Unavailable LePine, M Megan LEASING MACHINE TENDER Unavailable Unavailable LePine, M Megan LEASING MACHINE TENDER Unavailable Unavailable LePine, M Megan LEASING MACHINE TENDER Unavailable Unavailable LePine, M Megan LEASING MACHINE TENDER Unavailable Unavailable LePine, M Megan LEASING MACHINE TENDER Unavailable Unavailable LePine, M Megan LEASING MACHINE TENDER Unavailable Unavailable LePine, M Megan LEASING MACHINE TENDER Unavailable Unavailable LePine, M Megan LEASING MACHINE TENDER Unavailable Unavailable LePine, M Megan LEASING MACHINE TENDER Unavailable Unavailable LePine, M Megan LEASING MACHINE TENDER Unavailable Unavailable LePine, M Megan LEASING MACHINE TENDER Unavailable Unavailable LePine, M Megan LEASING MACHINE TENDER Unavailable Unavailable LePine, M Megan LEASING MACHINE TENDER Unavailable Unavailable LePine, M Megan LEASING MACHINE TENDER Unavailable Unavailable LePine, M Megan LEASING MACHINE TENDER Unavailable Unavailable LePine, M Megan LEASING MACHINE TENDER Unavailable Unavailable LePine, M Megan LEASING MACHINE TENDER Unavailable Unavailable LePine, M Megan LEASING MACHINE TENDER Unavailable Unavailable LePine, M Megan LEASING MACHINE TENDER Unavailable Unavailable LePine, M Megan LEASING MACHINE TENDER Unavailable Unavailable LePine, M Megan LEASING MACHINE TENDER Unavailable Unavailable LePine, M Megan LEASING MACHINE TENDER Unavailable Unavailable LePine, M Megan LEASING MACHINE TENDER Unavailable Unavailable LePine, M Megan LEASING MACHINE TENDER Unavailable Unavailable LePine, M Megan LEASING MACHINE TENDER Unavailable Unavailable LePine, M Megan LEASING MACHINE TENDER Unavailable Unavailable LePine, M Megan LEASING MACHINE TENDER Unavailable Unavailable LePine, M Megan LEASING MACHINE TENDER Unavailable Unavailable LePine, M Megan LEASING MACHINE TENDER Unavailable Unavailable LePine, M Megan LEASING MACHINE TENDER Unavailable Unavailable LePine, M Megan LEASING MACHINE TENDER Unavailable Unavailable LePine, M Megan LEASING MACHINE TENDER Unavailable Unavailable LePine, M Megan LEASING MACHINE TENDER Unavailable Unavailable LePine, M Megan LEASING MACHINE TENDER Unavailable Unavailable LePine, M Megan LEASING MACHINE TENDER Unavailable Unavailable LePine, M Megan LEASING MACHINE TENDER Unavailable Unavailable LePine, M Megan LEASING MACHINE TENDER Unavailable Unavailable LePine, M Megan LEASING MACHINE TENDER Unavailable Unavailable LePine, M Megan LEASING MACHINE TENDER Unavailable Unavailable LePine, M Megan LEASING MACHINE TENDER Unavailable Unavailable LePine, M Megan LEASING MACHINE TENDER Unavailable Unavailable LePine, M Megan LEASING MACHINE TENDER Unavailable Unavailable LePine, M Megan LEASING MACHINE TENDER Unavailable Unavailable LePine, M Megan LEASING MACHINE TENDER Unavailable Unavailable LePine, M Megan LEASING MACHINE TENDER Unavailable Unavailable LePine, M Megan LEASING MACHINE TENDER Unavailable Unavailable LePine, M Megan LEASING MACHINE TENDER Unavailable Unavailable LePine, M Megan LEASING MACHINE TENDER Unavailable Unavailable LePine, M Megan LEASING MACHINE TENDER Unavailable Unavailable LePine, M Megan LEASING MACHINE TENDER Unavailable Unavailable LePine, M Megan LEASING MACHINE TENDER Unavailable Unavailable LePine, M Megan LEASING MACHINE TENDER Unavailable Unavailable LePine, M Megan LEASING MACHINE TENDER Unavailable Unavailable LePine, M Megan LEASING MACHINE TENDER Unavailable Unavailable Re-disclosure Warning The records that [...] is protected by Article 27-F of the [facility] Public Health law. If you continue you may have access to information: Regarding HIV / AIDS; Provided by facilities licensed or operated by the [facility] Office of Mental Health; or Provided by the [facility] Office for People With Developmental Disabilities. If such information is present, then the following [facility] mandated warning applies: This information has been [...] law may result in a fine or longterm sentence or both. A general authorization for the release of medical or other information is NOT sufficient authorization for further disc losure. Family History Family Member Name Family Member Gender Family Member Status Date o f Status Description Data Source(s) Unknown Unknown Problem [facility] ([facility]) Unknown Male Problem [facility]) Unknown Female Problem [facility] ([facility]) Encounters Encounter Providers Location Date Indications Data Source(s ) Outpatient Attender: Megan Santana 06/02 03:20:00 PM EDT [facility] ([facility] ) Outpatient Referrer: Megan SOLOMON 02/24/2020 01:13:00 PM EDT [facility] Outpatient Attender: Megan Santana 02/18 02:00:00 PM EDT [facility] ([facility] ) Outpatient Attender: Megan Santana 12/24 03:00:00 PM EDT [facility] ([facility] ) Outpatient Referrer: Mario Nowak MD 11/27/2019 03:51:00 PM EDT [facility] Outpatient Attender: Megan Santana 09/20 02:20:00 PM EST [facility] ([facility] ) Immunizations Vaccine Date Status Description Data Source(s) COVID-19 VACCINE, MRNA-1273, LNP-S (MODERNA)/PF 10/08/2020 1 2:00:00 AM EST completed [facility] Influenza, injectable, MDCK, preservative free, ana maría valent 06/02/2020 03:33:00 PM EDT completed [facility] Medications Medication Brand Name Start Date Product Form Dose Route Admi nistrative Instructions Pharmacy Instructions Status Indications Reaction Description Data Source(s) Administration Of Flu Vaccine 06/02/2020 12:00:00 AM EDT completed [facility]) Medication administered onsite Furosemide 40 MG Oral Tablet Furosemide 03/10/2020 12:00:00 AM EDT ORAL active [facility] Shingrix Shingrix 02/19/2020 12:00:00 AM EDT activ e [facility] ([facility]) Rosuvastatin calcium 10 MG Oral Tablet Rosuvastatin Calcium 12/25/2019 12:00:00 AM EDT ORAL active [facility] ([facility]) Furosemide 80 MG Oral Tablet Furosemide 10/19/2019 12:00:00 AM EST active [facility] ([facility]) Insurance Providers Payer name Policy type / Coverage type Policy ID Covered democrat ID Covered democrat's relationship to montoya Policy [place] Plan Information MEDICARE [id number] SP [id number] AARP HEALTH CARE OPTIONS [id number] SP [id number] MEDICARE C [id number] S [id number] [id number] AARP O [id number] S [id number] Medicare Part B [facility] Other 0 Se lf 0 MEDICARE [id number] SP [id number] D Cigna Ins (pr) Medigap Part B [id number] Family Dependent [id number] BS [place] Medigap Part B [id number] Self [id number] A[employer] Options Medigap Part B [id number] Self [id number] [place] Primary [id number] Self [id number] [employer] Opt Medigap Part B [id number] 11 Self [id number] Medicare Natl Govt Servic Medicare Primary [id number] Self [id number] BS Jay/Watn Trad/MX Medigap Part B [id number] Self [id number] Cigna Ins (pr) Medigap Part B [id number] Family Dependent [id number] BS [place] Medigap Part B [id number] Self [id number] [employer] Options Medigap Part B [id number] Self [id number] [place] Primary [id number] Self [id number] Cigna Ins (pr) Medigap Part B [id number] Family Dependent [id number] BS [place] Medigap Part B [id number] Self [id number] [employer] Options Medigap Part B [id number] Self [id number] [place] Primary [id number] Self [id number] [employer] Opt Medigap Part B [id number] 11 Self [id number] Medicare Natl Govt Servic Medicare Primary [id number] Self [id number] Cigna Ins (pr) Medigap Part B [id number] Family Dependent [id number] BS [place] Medigap Part B [id number] Self [id number] [employer] Options Medigap Part B [id number] Self [id number] [place] Primary [id number] Self [id number] Cigna Ins (pr) Medigap Part B [id number] Family Dependent [id number] BS [place] Medigap Part B [id number] Self [id number] [employer] Options Medigap Part B [id number] Self [id number] [place] Primary [id number] Self [id number] Cigna Ins (pr) Medigap Part B [id number] Family Dependent [id number] BS [place] Medigap Part B [id number] Self [id number] [employer] Options Medigap Part B [id number] Self [id number] [place] Primary [id number] Self [id number] [employer] Opt Medigap Part B [id number] 11 Self [id number] 11 Medicare Natl Govt Servic Medicare Primary [id number] Self [id number] AARP HEALTH CARE OPTIONS [id number] SP [id number] A[employer] Options Medigap Part B [id number] Self [id number] [place] Primary [id number] Self [id number] Aarp Healthcare Opt Medigap Part B [id number] 11 Self [id number] 11 Medicare Natl Govt Servic Medicare Primary [id number] Self [id number] A[employer] Opt Medigap Part B [id number] 11 Self [id number] 11 Medicare Natl Govt Servic Medicare Primary [id number] Self [id number] Unicare Medigap Part B [id number] Family Dependent [id number] [employer] Options Medigap Part B [id number] Self [id number] Medicare (Part B) Medicare Primary [id number] Self [id number] [employer] Opt Medigap Part B [id number] 11 Self [id number] 11 Medicare Natl Govt Servic Medicare Primary [id number] Self [id number] AARP O [id number] S [id number] MEDICARE C [id number] S [id number] D [place] MEDICARE PART B C [id number] S [id number] [employer] Opt Medigap Part B [id number] 11 Self [id number] Medicare Natl Govt Servic Medicare Primary [id number] Self [id number] [employer] Opt Medigap Part B [id number] 11 Self [id number] 11 Medicare Natl Govt Servic Medicare Primary [id number] Self [id number] BS Jay/Watn Trad/MX Medigap Part B [id number] Self [id number] Aarp Healthcare Opt Medigap Part B Self Medicare Natl Govt Servic Medicare Primary Self MEDICARE [id number] SP [id number] [employer] Options Medigap Part B Self Medicare [place] Medicare Primary Self MEDICARE [id number] SP [id number] D MEDICARE C [id number] S [id number] A [place] MEDICARE PART B C [id number] S [id number] MEDICARE [id number] SP [id number] D MEDICARE [id number] SP [id number] [facility] [id number] Krista [id number] MEDICARE [id number] Krista [id number] D [id number] Surgeries/Procedures Procedure Description Date Indications Data Source(s) Diabetic Retinal Eye Exam 03/05/2020 12:00:00 AM EDT [facility] ([facility]) Results ID Date Data Source [id number] 06/02/2020 03:18:00 PM EDT [facility] ([facility]) Name Value Range Interpretation Code Description Data Steph rce(s) Supporting Document(s) Cholesterol in HDL [Mass/volume] in Serum or Plasma 44 mg/dL 35-60 [facility] ([facility]) Cholesterol [Mass/volume] in Serum or Plasma 253 mg/dL 131-200 [facility] ([facility]) Triglyceride [Mass/volume] in Serum or Plasma 226 mg/dL 30-150 [facility] ([facility]) Cholesterol in LDL [Mass/volume] in Serum or Plasma by calcu lation 164 CALC 50-159 [facility] ([facility]) ID Date Data Source [id number] 06/02/2020 03:18:00 PM EDT [facility] ([facility]) Name Value Range Interpretation Code Description Data Steph rce(s) Supporting Document(s) Glucose [Mass/volume] in Serum or Plasma 105 mg/dL 74-99 [facility] ([facility]) 100-125 mg/dL PRE-DIABETES/FASTING >126 mg/dL DIABETES/FASTING Urea nitrogen [Mass/volume] in Serum or Plasma 51 mg/dL 7-18 [facility] ([facility]) Creatinine 1.6 mg/dL 0.6-1.3 [facility] ([facility] Sodium [Moles/volume] in Serum or Plasma 142 meq/L 136-145 [facility] ([facility]) Carbon dioxide, total [Moles/volume] in Serum or Plasma 25 meq/L 21 -32 [facility] ([facility]) Chloride [Moles/volume] in Serum or Plasma 103 meq/L 98-107 [facility] ([facility]) Potassium [Moles/volume] in Serum or Plasma 3.8 meq/L 3.5-5.1 [facility] ([facility]) Total Bilirubin 0.4 mg/dL 0.2-1.0 [facility] ([facility]) Calcium [Mass/volume] in Serum or Plasma 9.3 mg/dL 8.5-10.1 [facility] ([facility]) Alkaline phosphatase isoenzyme [Units/volume] in Serum or Pl asma 104 mg/dL 46-116 [facility] ([facility]) Aspartate aminotransferase [Enzymatic activity/volume] in Serum or Plasma 20 U/L 15-37 [facility] ([facility] ) Alanine aminotransferase [Enzymatic activity/volume] in Seru m or Plasma 23 U/L 12-78 [facility] ([facility]) Albumin [Mass/volume] in Serum or Plasma 3.8 g/dL 3.4-5.0 [facility] ([facility]) Proteinase 3 Ab [Units/volume] in Serum 8.2 g/dL 6.4-8.2 [facility] ([facility]) Glomerular filtration rate/1.73 sq M pre dicted among non-blacks [Volume Rate/Area] in Serum or Plasma by Creatinine-based formula (MDRD) 32 mL/min [facility] A/G Ratio 0.86 CALC 1.00-1.90 [facility] Glomerular filtration rate/1.73 sq M pre dicted among blacks [Volume Rate/Area] in Serum or Plasma by Creatinine-based formula (MDRD) 38 mL/min [facility] <content>CHRONIC KIDNEY DISEASE STAGING PER NKF</content>
<content></content>
<content>STAGE I & II GFR >= 60 NORMAL TO MILDLY DECREASED</content>
<content>STAGE III GFR 30-59 MODERATELY DECREASED</content>
<content>STAGE IV GFR 15-29 SEVERELY DECREASED</content>
<content>STAGE V GFR <15 VERY LITTLE GFR LEFT</content>
<content>ESRD GFR <15 ON MOBILE CRANE OPERATOR</content>
<content></content> ID Date Data Source [id number] 06/02/2020 03:18:00 PM EDT [facility] Name Value Range Interpretation Code Description Data Steph rce(s) Supporting Document(s) Hemoglobin A1c/Hemoglobin.total in Blood 7.3 % [facility] ([facility]) Lab Result Notes: Pre-Diabetes 5.7 - 6.4 % Diabetes = or > 6.5% Glucose mean value [Mass/volume] in Blood Estimated fr om glycated hemoglobin 163 mg/dL 60-110 [facility] ID Date Data Source [id number] 06/02/2020 03:18:00 PM EDT [facility]) Name Value Range Interpretation Code Description Data Steph rce(s) Supporting Document(s) Leukocytes [#/volume] in Blood by Automated count 9.6 x10*3/UL 4.1-10 .9 [facility] Erythrocytes [#/volume] in Blood by Automated count 4.45 x10*6/UL 4.2 0-6.30 [facility] ([facility]) Hemoglobin [Mass/volume] in Blood 12.8 g/dL 12.0-18.0 [facility] ([facility]) Hematocrit [Volume Fraction] of Blood by Automated count 38.0 % 3 7.0-51.0 [facility] ([facility]) MCV 85.3 fL 80.0-97.0 [facility] Erythrocyte distribution width [Ratio] by Automated count 15.8 % 11.6-13.7 [facility] ([facility]) MCHC 33.7 g/dL 31.0-38.0 [facility] MCH 28.8 pg 26.0-32.0 [facility] MPV 9.0 FL 7.8-11.0 [facility] Platelets [#/volume] in Blood by Automated count 270 x10*3/UL 140-440 [facility] ([facility]) Lymph % 22.3 % 10.0-58.5 [facility] Neut % 70.4 % 37.0-92.0 [facility] Mid % 7.3 % 1.7-9.3 [facility] Lymph # 2.1 x10*3/UL 0.6-4.1 [facility] ([facility]) Mid # 0.8 x10*3/UL 0.1-0.6 [facility] ([facility]) Neut # 6.7 x10*3/UL 2.0-7.8 [facility] ([facility]) ID Date Data Source [id number] 03/03/2020 12:00:00 AM EDT [facility] Megan Wood Anp Patient Name: LEN [id number] [facility] Date of : 1945[place] [address] Date of Exam: 03/03/2020#: Fax: [phone] EXAM: [...] post thyroidectomy for thyroid malignancy.Accredited by the [employer] in General Ultrasound.Manan Coon, GENET/Nawaf you for referring LEN ASHTON to our office. Electronically Signed - MANAN COON MD 03/04/20 8:12 Name Value Range Interpretation Code Description Data Steph rce(s) Supporting Document(s) ID Date Data Source [id number] 12/20/2019 10:00:00 AM EDT [facility] ([facility]) Name Value Range Interpretation Code Description Data Steph rce(s) Supporting Document(s) Thyrotropin [Units/volume] in Serum or Plasma by Detec tion limit <= 0.05 mIU/L 2.93 uIU/mL 0.36-3.74 [facility] ([facility] ) ID Date Data Source [id number] 12/20/2019 10:00:00 AM EDT [facility] ([facility]) Name Value Range Interpretation Code Description Data Steph rce(s) Supporting Document(s) Triglyceride [Mass/volume] in Serum or Plasma 156 mg/dL 30-150 [facility] ([facility]) Cholesterol [Mass/volume] in Serum or Plasma 238 mg/dL 131-200 [facility] ([facility]) Cholesterol in LDL [Mass/volume] in Serum or Plasma by calcu lation 165 CALC 50-159 [facility] ([facility]) Cholesterol in HDL [Mass/volume] in Serum or Plasma 42 mg/dL 35-60 [facility] ([facility]) ID Date Data Source [id number] 12/20/2019 10:00:00 AM EDT [facility] ([facility]) Name Value Range Interpretation Code Description Data Steph rce(s) Supporting Document(s) Urea nitrogen [Mass/volume] in Serum or Plasma 29 mg/dL 7-18 [facility] ([facility]) Glucose [Mass/volume] in Serum or Plasma 137 mg/dL 74-99 [facility] ([facility]) 100-125 mg/dL PRE-DIABETES/FASTING >126 mg/dL DIABETES/FASTING Potassium [Moles/volume] in Serum or Plasma 4.8 meq/L 3.5-5.1 [facility] ([facility]) Creatinine 1.4 mg/dL 0.6-1.3 [facility] ([facility]) Sodium [Moles/volume] in Serum or Plasma 141 meq/L 136-145 [facility] ([facility]) Carbon dioxide, total [Moles/volume] in Serum or Plasma 32 meq/L 21 -32 [facility] ([facility]) Chloride [Moles/volume] in Serum or Plasma 103 meq/L 98-107 [facility] ([facility]) Calcium [Mass/volume] in Serum or Plasma 9.3 mg/dL 8.5-10.1 [facility] ([facility]) Alkaline phosphatase isoenzyme [Units/volume] in Serum or Pl asma 107 mg/dL 46-116 [facility] ([facility]) Total Bilirubin 0.3 mg/dL 0.2-1.0 [facility] ([facility]) Albumin [Mass/volume] in Serum or Plasma 3.4 g/dL 3.4-5.0 [facility] ([facility]) Alanine aminotransferase [Enzymatic activity/volume] in Seru m or Plasma 22 U/L 12-78 [facility] ([facility]) Aspartate aminotransferase [Enzymatic activity/volume] in Serum or Plasma 18 U/L 15-37 [facility] ([facility] ) Proteinase 3 Ab [Units/volume] in Serum 6.9 g/dL 6.4-8.2 [facility] A/G Ratio 0.97 CALC 1.00-1.90 [facility] Glomerular filtration rate/1.73 sq M pre dicted among non-blacks [Volume Rate/Area] in Serum or Plasma by Creatinine-based formula (MDRD) 37 mL/min [facility] Glomerular filtration rate/1.73 sq M pre dicted among blacks [Volume Rate/Area] in Serum or Plasma by Creatinine-based formula (MDRD) 45 mL/min [facility] <content>CHRONIC KIDNEY DISEASE STAGING PER NKF</content>
<content></content>
<content>STAGE I & II GFR >= 60 NORMAL TO MILDLY DECREASED</content>
<content>STAGE III GFR 30-59 MODERATELY DECREASED</content>
<content>STAGE IV GFR 15-29 SEVERELY DECREASED</content>
<content>STAGE V GFR <15 VERY LITTLE GFR LEFT</content>
<content>ESRD GFR <15 ON MOBILE CRANE OPERATOR</content>
<content></content> ID Date Data Source [id number] 12/20/2019 10:00:00 AM EDT [facility]) Name Value Range Interpretation Code Description Data Steph rce(s) Supporting Document(s) Hemoglobin A1c/Hemoglobin.total in Blood 7.5 g/dL 4.8-5.6 [facility] [facility] ([facility]) Lab Result Notes: Pre-Diabetes 5.7 - 6.4 % Diabetes = or > 6.5% Glucose mean value [Mass/volume] in Blood Estimated fr om glycated hemoglobin 169 mg/dL 60-110 [facility] ([facility] ) ID Date Data Source [id number] [facility]20[facility]2019 10[facility] Name Value Range Interpretation Code Description Data Steph rce(s) Supporting Document(s) Leukocytes [#/volume] in Blood by Automated count 7.5 x10*3/UL 4.1-10 .9 [facility] ([facility]) Erythrocytes [#/volume] in Blood by Automated count 4.56 x10*6/UL 4.2 0-6.30 [facility] ([facility]) Hemoglobin [Mass/volume] in Blood 12.9 g/dL 12.0-18.0 [facility] ([facility]) Hematocrit [Volume Fraction] of Blood by Automated count 39.4 % 3 7.0-51.0 [facility] ([facility]) MCV 86.3 fL 80.0-97.0 [facility] Erythrocyte distribution width [Ratio] by Automated count 14.9 % 11.6-13.7 [facility] ([facility]) Platelets [#/volume] in Blood by Automated count 286 x10*3/UL 140-440 [facility] ([facility]) MCH 28.3 pg 26.0-32.0 [facility] MCHC 32.7 g/dL 31.0-38.0 [facility] MPV 9.3 FL 7.8-11.0 [facility] ([facility] Mid % 6.9 % 1.7-9.3 [facility] Lymph % 21.3 % 10.0-58.5 [facility] Lymph # 1.6 x10*3/UL 0.6-4.1 [facility] ([facility]) Neut % 71.8 % 37.0-92.0 [facility] Neut # 5.4 x10*3/UL 2.0-7.8 [facility] ([facility]) Mid # 0.5 x10*3/UL 0.1-0.6 [facility] ([facility]) ID Date Data Source [id number] 09/20/2019 03:11:00 PM EST [facility] ([facility]) Name Value Range Interpretation Code Description Data Steph rce(s) Supporting Document(s) Glucose [Mass/volume] in Serum or Plasma 118 mg/dL 74-99 [facility] ([facility]) 100-125 mg/dL PRE-DIABETES/FASTING >126 mg/dL DIABETES/FASTING Creatinine 1.3 mg/dL 0.6-1.3 [facility] ([facility]) Urea nitrogen [Mass/volume] in Serum or Plasma 42 mg/dL 7-18 [facility] ([facility]) Sodium [Moles/volume] in Serum or Plasma 139 meq/L 136-145 [facility] ([facility]) Carbon dioxide, total [Moles/volume] in Serum or Plasma 28 meq/L 21 -32 [facility] ([facility]) Chloride [Moles/volume] in Serum or Plasma 104 meq/L 98-107 [facility] ([facility]) Potassium [Moles/volume] in Serum or Plasma 3.8 meq/L 3.5-5.1 [facility] ([facility]) Glomerular filtration rate/1.73 sq M pre dicted among blacks [Volume Rate/Area] in Serum or Plasma by Creatinine-based formula (MDRD) 49 mL/min [facility] ([facility]) <content>CHRONIC KIDNEY DISEASE STAGING PER NKF</content>
<content></content>
<content>STAGE I & II GFR >= 60 NORMAL TO MILDLY DECREASED</content>
<content>STAGE III GFR 30-59 MODERATELY DECREASED</content>
<content>STAGE IV GFR 15-29 SEVERELY DECREASED</content>
<content>STAGE V GFR <15 VERY LITTLE GFR LEFT</content>
<content>ESRD GFR <15 ON MOBILE CRANE OPERATOR</content>
<content></content> Glomerular filtration rate/1.73 sq M pre dicted among non-blacks [Volume Rate/Area] in Serum or Plasma by Creatinine-based formula (MDRD) 40 mL/min [facility] ([facility]) Calcium [Mass/volume] in Serum or Plasma 9.7 mg/dL 8.5-10.1 [facility] ([facility]) ID Date Data Source [id number] 09/20/2019 03:11:00 PM EST [facility] ([facility]) Name Value Range Interpretation Code Description Data Steph rce(s) Supporting Document(s) Glucose mean value [Mass/volume] in Blood Estimated fr om glycated hemoglobin 171 mg/dL 60-110 [facility] ([facility] ) Hemoglobin A1c/Hemoglobin.total in Blood 7.6 g/dL 4.8-5.6 [facility] ([facility]) Lab Result Notes: Pre-Diabetes 5.7 - 6.4 % Diabetes = or > 6.5% ID Date Data Source [id number] 09/20/2019 03:11:00 PM EST [facility] ([facility]) Name Value Range Interpretation Code Description Data Steph rce(s) Supporting Document(s) Leukocytes [#/volume] in Blood by Automated count 9.0 x10*3/UL 4.1-10 .9 [facility] ([facility]) Hemoglobin [Mass/volume] in Blood 12.2 g/dL 12.0-18.0 [facility] ([facility]) Erythrocytes [#/volume] in Blood by Automated count 4.28 x10*6/UL 4.2 0-6.30 [facility] ([facility]) Hematocrit [Volume Fraction] of Blood by Automated count 37.1 % 3 7.0-51.0 [facility] ([facility]) MCV 86.6 fL 80.0-97.0 [facility] ([facility]) MCH 28.6 pg 26.0-32.0 [facility] ([facility]) Platelets [#/volume] in Blood by Automated count 260 x10*3/UL 140-440 [facility] ([facility]) MCHC 33.0 g/dL 31.0-38.0 [facility] ([facility]) Erythrocyte distribution width [Ratio] by Automated count 14.5 % 11.6-13.7 [facility] ([facility]) Lymph % 19.3 % 10.0-58.5 [facility] ([facility]) MPV 9.1 FL 7.8-11.0 [facility]) Mid % 5.8 % 1.7-9.3 [facility]) Neut % 74.9 % 37.0-92.0 [facility]) Mid # 0.5 x10*3/UL 0.1-0.6 [facility] ([facility]) Lymph # 1.7 x10*3/UL 0.6-4.1 [facility] ([facility]) Neut # 6.8 x10*3/UL 2.0-7.8 [facility] ([facility]) Procedure Vital Signs ID Date Data Source [id number] Name Value Range Interpretation Code Description Data Source(s) Body mass index (BMI) [Ratio] 54.7 kg/m2 54.7 k g/m2 [facility] ([facility]) Oxygen saturation in Arterial blood by Pulse oximetry 95 % 95 % [facility] ([facility]) Body weight 285.00 [lb_av] 285.00 [lb_av] [facility] ([facility]) Body height 60.5 [in_i] 60.5 [in_i] [facility] ([facility]) 5'0.50" Heart rate 72 /min 72 /min [facility] ([facility]) Diastolic blood pressure 62 mm[Hg] 62 mm[Hg] [facility] Systolic blood pressure 132 mm[Hg] 132 mm[Hg] [facility] ([facility]) Body mass index (BMI) [Ratio] 55.7 kg/m2 55.7 k g/m2 [facility] ([facility]) Oxygen saturation in Arterial blood by Pulse oximetry 92 % 92 % [facility] ([facility]) RM Air Body weight 290.00 [lb_av] 290.00 [lb_av] [facility] ([facility]) Body height 60.5 [in_i] 60.5 [in_i] [facility] ([facility]) 5'0.50" Heart rate 73 /min 73 /min [facility] ([facility]) Diastolic blood pressure 60 mm[Hg] 60 mm[Hg] [facility] ([facility]) Systolic blood pressure 138 mm[Hg] 138 mm[Hg] [facility] ([facility]) Body mass index (BMI) [Ratio] 53.6 kg/m2 53.6 k g/m2 [facility] ([facility]) Body weight 279.00 [lb_av] 279.00 [lb_av] [facility] ([facility]) Body height 60.5 [in_i] 60.5 [in_i] [facility] ([facility]) 5'0.50" Heart rate 62 /min 62 /min [facility] ([facility]) Diastolic blood pressure 67 mm[Hg] 67 mm[Hg] [facility] ([facility]) Systolic blood pressure 118 mm[Hg] 118 mm[Hg] [facility] ([facility]) Body mass index (BMI) [Ratio] 53.8 kg/m2 53.8 k g/m2 [facility] ([facility]) Oxygen saturation in Arterial blood by Pulse oximetry 95 % 95 % [facility] ([facility]) Body weight 280.00 [lb_av] 280.00 [lb_av] [facility] ([facility]) Body height 60.5 [in_i] 60.5 [in_i] [facility] ([facility]) 5'0.50" Heart rate 73 /min 73 /min [facility] ([facility]) Diastolic blood pressure 62 mm[Hg] 62 mm[Hg] [facility] ([facility]) Systolic blood pressure 138 mm[Hg] 138 mm[Hg] [facility] ([facility])
[2020-10-21 17:30] LABS: ALBUMIN 3.9 GM/DL (3.2-5.2); ALT/SGPT 21 U/L (12-78); BILIRUBIN,DIRECT < 0.1 MG/DL (0.0-0.2); BILIRUBIN,TOTAL 0.3 MG/DL (0.2-1.0); BLOOD UREA NITROGEN 29 MG/DL (7-18); CALCIUM LEVEL 9.7 MG/DL (8.8-10.2); CARBON DIOXIDE LEVEL 28 MEQ/L (21-32); CHLORIDE LEVEL 102 MEQ/L (98-107); CREATININE FOR GFR 1.44 MG/DL (0.55-1.30); GLOMERULAR FILTRATION RATE 37.9 (>39); GLUCOSE, FASTING 88 MG/DL (70-100); LIPASE 63 U/L (73-393); POTASSIUM SERUM 3.9 MEQ/L (3.5-5.1); SODIUM LEVEL 140 MEQ/L (136-145); TOTAL PROTEIN 7.7 GM/DL (6.4-8.2)
== END 2020-10-21 17:28 | disposition home or self-care (01) ==
LOC: M ED 14:28
DX: K59.00 Constipation, unspecified (principal); E11.9 Type 2 diabetes mellitus without complications; I10 Essential (primary) hypertension; E78.5 Hyperlipidemia, unspecified; Z79.899 Other long term (current) drug therapy; Z79.890 Hormone replacement therapy; Z79.82 Long term (current) use of aspirin; Z79.4 Long term (current) use of insulin; Z88.8 Allergy status to other drugs, medicaments and biological substances; Z91.041 Radiographic dye allergy status; Z91.048 Other nonmedicinal substance allergy status

== ENCOUNTER → 2021-01-06 | Outpatient (CLI) | payer MEDICARE ==
[~2021-01-06] MED LIST changes: -AMIT10TA PO; +AMIT10TA7 PO; +ASPI-569 PO; -ASPI81TAEC PO
[2021-01-06 15:57] LABS: CALCIUM LEVEL 9.9 MG/DL (8.8-10.2); GLOMERULAR FILTRATION RATE 57.5 (>39); POTASSIUM SERUM 3.8 MEQ/L (3.5-5.1)
== END ==
LOC: M WUC 14:06
PROVIDERS: ATTEND Nurse Practitioner Adult Health
DX: N18.32 Chronic kidney disease, stage 3b (principal); E11.21 Type 2 diabetes mellitus with diabetic nephropathy

== ENCOUNTER → 2021-01-06 | Outpatient (CLI) | payer MEDICARE ==
--- NOTE | 2021-01-06 15:40 | REP ---
INDICATION: SOB. COMPARISON: 03/10/2017 a frontal view obtained as part of an abdominal series TECHNIQUE: AP and lateral FINDINGS: There is a subtle haziness seen throughout the pulmonary vascularity with mild pulmonary vascular redistribution. There are no patchy opacities or pleural effusions. The cardiomediastinal silhouette is stable. There is mild cardiomegaly. The osseous structures are stable and intact. IMPRESSION: Mild CHF pattern. <Electronically signed by Bear Lloyd > 01/06/21 [id number]
== END ==
LOC: M WUC 14:01
PROVIDERS: ATTEND Internal Medicine Cardiovascular Disease
DX: R06.02 Shortness of breath (principal); N18.32 Chronic kidney disease, stage 3b; E11.21 Type 2 diabetes mellitus with diabetic nephropathy

== ENCOUNTER → 2021-02-03 | Outpatient (CLI) | payer MEDICARE ==
--- NOTE | 2021-02-03 15:05 | REP ---
INDICATION: PAIN. COMPARISON: AP pelvis obtained during multiple KUB examinations from 08/02/2016 up to and including 10/21/2020 with a total of 5 exams. TECHNIQUE: AP and frog-lateral views FINDINGS: The hip joint space is symmetric and relatively well maintained and essentially unchanged from the prior exams. There is no acute fracture, dislocation, or subluxation. Adjacent to the right ischial tuberosity there is a 1 cm size calcification which has increased in size from the 1st examination to identify the finding of 08/02/2016 when it measured 5 mm. IMPRESSION: *Stable right hip joint. *Soft tissue calcification as described above likely secondary to chronic calcific hamstring tendinitis. This should be correlated clinically and if necessary obtain an MRI to search for soft tissue edema if acute upon chronic change has developed. <Electronically signed by Bear Lloyd > 02/03/21 [id number]
== END ==
LOC: M WUC 14:28
PROVIDERS: ATTEND Nurse Practitioner Adult Health
DX: M65.2 Calcific tendinitis (principal)

== ENCOUNTER → 2021-03-25 | Outpatient (REF) | payer MEDICARE | LOC: M LAB REF 20:11 | PROVIDERS: ATTEND Physical Medicine & Rehabilitation | DX: M51.36 Other intervertebral disc degeneration, lumbar region (principal) ==

== ENCOUNTER → 2021-03-25 | Outpatient (CLI) | payer MEDICARE ==
[~2021-03-25] MED LIST changes: +AMOX875T2 PO; +D31000TA2 PO; +LEVO100T5 PO; +TRAM50TA2 PO; +ZYLO100T2 PO
--- NOTE | 2021-03-25 16:26 | REP ---
INDICATION: PAIN RIGHT KNEE. COMPARISON: None. TECHNIQUE: Six views of the right knee are provided. FINDINGS: Six views of the right knee demonstrate osteoarthritic joint space narrowing and spur formation in the medial compartment. There is mild spurring laterally. Patellofemoral narrowing and spur formation is also seen. There is diffuse osteopenia. Periarticular soft tissues are unremarkable.. No fracture or subluxation is seen. . Fat IMPRESSION: Three compartment osteoarthritis of the right knee. Diffuse osteopenia. No acute bony abnormality.. <Electronically signed by Alo Oviedo > 03/25/21 [id number]
== END ==
LOC: M WUC 15:51
PROVIDERS: ATTEND Nurse Practitioner Adult Health
DX: M25.561 Pain in right knee (principal); M85.80 Other specified disorders of bone density and structure, unspecified site

== ENCOUNTER 2021-03-30 06:38 | Inpatient (IN) | payer MEDICARE ==
[~2021-03-30] VITALS: Ht 154.9 cm; Wt 126.0 kg
[~2021-03-30 06:38] MED LIST changes: -AMOX875T2 PO; -D31000TA2 PO; -LEVO100T5 PO; -TRAM50TA2 PO; -ZYLO100T2 PO
[2021-03-30] MEDS ORDERED: TRAM50TA2 PO (06:50)
[2021-03-30] MEDS ORDERED: ONDANSETRON 4MG/2ML VIAL IV ONE (07:15)
[2021-03-30] MEDS ORDERED: NS 1,000 ML IV ONE (07:15)
[2021-03-30] MEDS ORDERED: MORPHINE 4 MG/ML 1ML VIAL/SYRINGE (J2270) IV ONE ×2 (07:35→09:05)
[2021-03-30 07:42] LABS: BASO % 0.2 % (0.0-1.0); EOS % 0.1 % (0.0-3.0); HEMATOCRIT 47.1 % (36.0-47.0); HEMOGLOBIN 14.9 g/dl (12.0-15.5); LYMPH % 6.8 % (24.0-44.0); MEAN CORPUSCULAR HGB CONC 31.6 g/dl (32.0-36.5); MEAN CORPUSCULAR VOLUME 91.6 fl (80.0-96.0); MONO # 0.6 10^3/uL (0.0-0.8); MONO % 4.1 % (2.0-8.0); NEUTROPHILS # 12.4 10^3/uL (1.5-8.5); NEUTROPHILS % 88.5 % (36.0-66.0); PLATELET COUNT, AUTOMATED 327 10^3/uL (150-450); RED BLOOD COUNT 5.14 10^6/uL (4.00-5.40); WHITE BLOOD COUNT 14.1 10^3/uL (4.0-10.0)
[2021-03-30 08:14] LABS: ALBUMIN 3.8 GM/DL (3.2-5.2); ALT/SGPT 21 U/L (12-78); BILIRUBIN,DIRECT 0.1 MG/DL (0.0-0.2); BILIRUBIN,TOTAL 0.5 MG/DL (0.2-1.0); CK-MB VALUE MASS 1.5 NG/ML (<3.6); CPK CREATINE PHOSPHOKINASE 117 U/L (26-192); LIPASE 84 U/L (73-393); MB/CK RELATIVE INDEX 1.28 (< OR =4); TOTAL PROTEIN 7.6 GM/DL (6.4-8.2); TROPONIN I < 0.02 NG/ML (< 0.10)
[2021-03-30] MEDS ORDERED: NS 2,780 ML in IV 1 EA IV ONE (08:15)
[2021-03-30 08:52] LABS: RSV AMPLIFICATION NEGATIVE (NEGATIVE)
--- NOTE | 2021-03-30 10:13 | REPVR ---
PROCEDURE INFORMATION: Exam: CT Abdomen And Pelvis Without Contrast Exam date and time: 03/30/2021 7:43 AM Age: 75 years old Clinical indication: Abdominal pain; Additional info: Abd pain HX obstruct TECHNIQUE: Imaging protocol: Computed tomography of the abdomen and pelvis without contrast. Radiation optimization: All CT scans at this facility use at least one of these dose optimization techniques: automated exposure control; mA and/or kV adjustment per patient size (includes targeted exams where dose is matched to clinical indication); or iterative reconstruction. COMPARISON: CT ABD PELVIS W/O CONTRAST 05/19/2019 6:45 AM FINDINGS: Lungs: Bilateral and linear atelectasis versus scarring. Liver: Mild hepatomegaly. Gallbladder and bile ducts: Biliary sludge in gallbladder. Pancreas: Normal. No ductal dilation. Spleen: Normal. No splenomegaly. Adrenal glands: Normal. No mass. Kidneys and ureters: Bilateral renal cortical atrophy. Stomach and bowel: Small bowel obstruction transition point in the right lower quadrant at the level large lobulated ventral abdominal hernia best appreciated on axial image number [id number]. Status post sigmoidectomy. Diverticulosis of colon. Evidence of acute diverticulitis. Appendix: No evidence of appendicitis. Intraperitoneal space: Unremarkable. No free air. No significant fluid collection. Vasculature: Atherosclerotic of the abdominal aorta. Atherosclerotic disease coronary arteries. Arteries: Calcified aortic valve leaflets. Lymph nodes: Unremarkable. No enlarged lymph nodes. Urinary bladder: Unremarkable as visualized. Reproductive: Status post hysterectomy. Bones/joints: Severe multilevel degenerative facet arthropathy the lumbar spine. Scoliosis. Stenosis of the spinal canal and neural foramina at several levels. Soft tissues: Unremarkable. IMPRESSION: Small bowel obstruction transition point in the right lower quadrant at the level large lobulated ventral abdominal hernia best appreciated on axial image number 139. Electronically signed by: Song Muhammad On 03/30/2021 10:13:12 AM
[2021-03-30] MEDS: NS 1,000 ML IV SCH (11:50)
[2021-03-30] MEDS ORDERED: GLUCAGON INJ 1MG VIAL SC PRN (11:55)
[2021-03-30] MEDS ORDERED: DEXTROSE 50% 50 ML SYRINGE IV PRN (11:55)
[2021-03-30] MEDS ORDERED: GLUCOSE 4GM CHEW TABLET PO PRN (11:55)
[2021-03-30] MEDS: HumaLOG INSULIN (NovoLOG) PER UNIT SC SCH ×3 (12:00→23:50)
[2021-03-30] MEDS ORDERED: LEVO100T5 PO (12:10)
[2021-03-30] MEDS ORDERED: D31000TA2 PO (12:10)
[2021-03-30] MEDS ORDERED: ZYLO100T2 PO (12:10)
[2021-03-30] MEDS ORDERED: FURO40TA2 PO ×2 (12:10)
[2021-03-30] MEDS ORDERED: HOME MED LIST COMPLETE! XX SCH (12:15)
--- NOTE | 2021-03-30 12:37 | HPEPDOC ---
[facility] Medical History & Physical Date of Admission Mar 30, 2021 Date of Service: Mar 30, 2021 History and Physical CC: abdominal pain HPI: 75-year-old female presents for one day history of worsening abdominal pain, constipation, decreased appetite, subjective fevers and chills. She has a history of SBO's, and large ventral hernia not amenable to surgical repair. In the ED, a CT scan showed a SBO, with transition point at her ventral hernia. She notes generalized abdominal pain, mostly periumbilical, 6/10, intermittent, with no clear modifying factors, nausea without vomiting. She denies chest pain, headaches, changes in vision, or depressed mood. PAST MEDICAL HISTORY: DM CHF LUBA thyroid CA DLP PAST SURGICAL HISTORY: Thyroidectomy Abdominal hysterectomy Sigmoid colon resection Umbilical hernia repair Partial bowel resection Cataract surgery Left knee arthroplasty SOCIAL HISTORY: Denies tobacco, alcohol or illicit drug use. FAMILY HISTORY: Brothers with dementia, unknown cancers Sister-aneurysm ALLERGIES: Please see below. REVIEW OF SYSTEMS: 10 point review of system negative except as stated in HPI HOME MEDICATIONS: Please see below. PHYSICAL EXAMINATION: General: NAD, lying comfortably in bed HEENT: NC/AT, EOMI, NG tube in place Lungs: CTA B/L Heart: +S1S2, RRR, systolic murmur Abd: soft, +BS, obese Ext: peripheral LE edema Neuro: no gross focal deficits Psych: AAOx3 LABORATORY DATA: See below. ASSESSMENT AND PLAN: 75 yo female admitted for partial SBO, with PMHx of recurrent SBO #SBO - Recurrent history of SBO in setting of abdominal hernias. - Surgery consulted. - NPO at this time with continue NG tube drainage. - Symptoms already improving. - Pain control. Low dose morphine, patient has a history of being overly-sedated with high doses. # DM - ISS q6 given NPO. Monitor BS. #HTN/hypertensive urgency - secondary to pain #Hypothyroidism - thyroid cancer s/p thyroidectomy. # LUBA - Night time CPAP. #CHF -compensated #HLD Vital Signs Vital Signs Date Time Temp Pulse Resp B/P (MAP) Pulse Ox O2 Delivery O2 Flow Rate FiO2 03/30/21 09:35 77 18 187/77 94 Room Air 03/30/21 06:42 96.5 Laboratory Data Labs 24H Laboratory Tests 2 03/30/21 07:30: Immature Granulocyte % (Auto) 0.3, Neutrophils (%) (Auto) 88.5H, Lymphocytes (%) (Auto) 6.8L, Monocytes (%) (Auto) 4.1, Eosinophils (%) (Auto) 0.1, Basophils (%) (Auto) 0.2, Neutrophils # (Auto) 12.4H, Lymphocytes # (Auto) 1.0L, Monocytes # (Auto) 0.6, Eosinophils # (Auto) 0.0, Basophils # (Auto) 0.0, Nucleated Red Blood Cells % (auto) 0.0, Lactic Acid Level 2.7*H, Total Bilirubin 0.5, Direct Bilirubin 0.1, Aspartate Amino Transf (AST/SGOT) 20, Alanine Aminotransferase (ALT/SGPT) 21, Alkaline Phosphatase 110, Total Creatine Kinase 117, Creatine Kinase MB 1.5, Creatine Kinase MB Relative Index 1.28, Troponin I < 0.02, Total Protein 7.6, Albumin 3.8, Albumin/Globulin Ratio 1.0L, Lipase 84 03/30/21 07:32: POC Glucose (Misc Panel) 209H, POC Sodium (Misc Panel) 139, POC Potassium (Misc Panel) 4.2, POC Chloride (Misc Panel) 102, POC Total CO2 (Misc Panel) 24.0, POC Blood Urea Nitrogen (Misc Panel 32H, POC Ionized Calcium (Misc Panel) 4.9, POC Creatinine (Misc Panel) 1.2, POC Hematocrit (Misc Panel) 48.0 03/30/21 07:56: Coronavirus (COVID-19)(PCR) NEGATIVE, Influenza Type A (RT-PCR) NEGATIVE, Influenza Type B (RT-PCR) NEGATIVE, Respiratory Syncytial Virus (PCR) NEGATIVE CBC/BMP Laboratory Tests 03/30/21 07:30 Home Medications Scheduled Allopurinol (Zyloprim) 100 Mg Tablet, 300 MG PO DAILY Aspirin (Aspirin EC) 81 Mg Tabec, 81 MG PO QHS Atenolol (Atenolol) 25 Mg Tablet, 12.5 MG PO BID Cholecalciferol (Vitamin D3) (Vitamin D3) 1,000 Unit Tablet, 5,000 UNITS PO DAILY Cyanocobalamin (Vitamin B-12) (Vitamin B-12) 500 Mcg Tab, 500 MCG PO DAILY Furosemide (Furosemide) 40 Mg Tablet, 60 MG PO QAM Furosemide (Furosemide) 40 Mg Tablet, 40 MG PO QHS Insulin Glargine,Hum.rec.anlog (Toujeo Solostar) 300 Unit/Ml Inj, 74 UNIT SC DAILY Insulin Human Lispro (Humalog) 1 Units/0.01 Ml Inj, 18 UNITS SC BID BEFORE LUNCH AND DINNER Levothyroxine Sodium (Synthroid) 112 Mcg Tablet, 112 MCG PO DAILY TAKES WITH 100MCG FOR TOTAL DOSE 212MCG Levothyroxine Sodium (Levothyroxine Sodium) 100 Mcg Tablet, 100 MCG PO QAM TAKES WITH 112MCG FOR TOTAL DOSE 212MCG Losartan Potassium (Losartan Potassium) 100 Mg Tab, 25 MG PO QHS Scheduled PRN Acetaminophen (Acetaminophen) 500 Mg Tab, 1,000 MG PO Q6H PRN for PAIN Tramadol HCl (Tramadol HCl) 50 Mg Tablet, 50 MG PO TID PRN for PAIN LEVEL 4-7 Allergies Coded Allergies: Contrast Media (Unverified Allergy, Unknown, 08/08/16) phenol (Verified Allergy, Unknown, 05/19/19) TAPE (Verified Adverse Reaction, Intermediate, ERYTHEMA ALSO WITH BANDAIDS, 08/08/16) exenatide (Verified Adverse Reaction, Intermediate, RASH AT INJECTION SITE, 03/30/21) nitrofurantoin (Verified Adverse Reaction, Mild, ITCH, 03/30/21) A-FIB/CHADSVASC A-FIB History Current/History of A-Fib/PAF?: No JAQUAN WALLACE MD Mar 30, 2021 11:45
[2021-03-30] MEDS: ONDANSETRON 4MG/2ML VIAL IV SCH ×2 (13:38→19:32)
[2021-03-30] MEDS: MORPHINE 2 MG/ML 1ML VIAL (J2270) IV PRN (13:39)
[2021-03-30 15:32] VITALS: BP 178/73
[2021-03-30] MEDS: ATENOLOL 12.5MG PER 1/2 TABLET PO SCH ×2 (16:09→21:13)
[2021-03-30] MEDS: CYANOCOBALAMIN 500 MCG TAB PO SCH (16:17)
[2021-03-30] MEDS: allopurinoL 100 MG TAB PO SCH (16:18)
[2021-03-30] MEDS: LEVOTHYROXINE 112MCG TABLET (0.112MG) PO SCH (16:18)
[2021-03-30] MEDS: LEVOTHYROXINE 100MCG TABLET (0.1MG) PO SCH (16:18)
[2021-03-30] MEDS: FUROSEMIDE 40 MG TAB PO SCH (16:18)
[2021-03-30] MEDS: VITAMIN D 1,000 INTERNATIONAL UNITS TABLET PO SCH (16:21)
--- NOTE | 2021-03-30 16:40 | CR ---
CONSULTATION DATE: 03/30/2021 REASON FOR CONSULTATION: Abdominal pain. HISTORY OF PRESENT ILLNESS: Patient is a 75-year-old female who presents with increasing lower abdominal pains and lack of a bowel movement since Monday. She has a history of left hemicolectomy in the past. Since then she has had intermittent small-bowel obstructions at least once a year, if not more. She has been hospitalized for them a few times, but the majority of the time she treats it at home by herself just by alternating her diet and changing her activity for a couple of days. This time she has had the pain and constipation again since this weekend. No nausea or vomiting. No fevers or chills. She has this very large known midline lower abdominal hernia that does have loops of bowel within it. MEDICAL HISTORY: 1. Diabetes. 2. Congestive heart failure (CHF). 3. Obstructive sleep apnea (LUBA). 4. Thyroid cancer. 5. Dyslipidemia. SURGICAL HISTORY: 1. Thyroidectomy. 2. Abdominal hysterectomy. 3. Sigmoid colon resection. 4. Umbilical hernia repair. 5. Partial bowel resection. 6. Cataract surgery. 7. Left knee arthroplasty. SOCIAL HISTORY: Denies drugs, alcohol, or tobacco abuse. FAMILY HISTORY: Noncontributory. ALLERGIES: Contrast media, tape, SENNOSIDES, NITROFURANTOIN, and PHENOL. MEDICATIONS: Please see med rec. REVIEW OF SYSTEMS: Pertinent positives and negatives as stated in history of present illness. PHYSICAL EXAMINATION: GENERAL: Alert and oriented (A and O) times three in no acute distress. VITAL SIGNS: Temperature 97.9, pulse 85, respirations 16, blood pressure 184/79, pulse oximetry 90% on room air. HEENT: Pupils equally round and reactive to light and accommodation. HEART: S1, S2, regular rate and rhythm. LUNGS: Clear to auscultation bilaterally. ABDOMEN: Soft, slightly distended. Mild tenderness to palpation over the hernia itself. No rebound or guarding. No rigidity. There is a large lower midline ventral hernia that is palpable. It is very soft and easily reducible at this time. EXTREMITIES: Bilateral lower extremity edema. LABORATORY DATA: White count 14.1, hemoglobin 14.9, platelets 327. Lactic acid was 2.7. Followup 4 hours later it was down to 1.5. IMAGING DATA: CT abdomen and pelvis shows small-bowel obstruction with a transition in the right lower quadrant at the level of the large ventral hernia. ASSESSMENT AND PLAN: Patient is a 75-year-old female with history of multiple small-bowel obstructions, presents with abdominal pain and signs of a recurrent partial versus complete small-bowel obstruction due to a large ventral incisional hernia. Recommendation at this time is to treat medically. Intravenous (IV) fluids, antibiotics, nothing by mouth, and nasogastric (NG) tube to decompression. We will continue with this management for 72 hours as long as she remains stable. She does not have a surgical abdomen at this time. We will continue to monitor her. If for some reason she does show signs of deterioration, then we will consider urgent surgery; however, if she shows signs of improvement, then we will slowly advance her diet as tolerated.
[2021-03-30] MEDS: traMADol 50 MG TAB PO PRN (19:39)
[2021-03-30] MEDS: ASPIRIN 81MG ENTERIC TABLET PO SCH (21:12)
[2021-03-30] MEDS: LOSARTAN 25 MG TAB PO SCH (21:13)
[2021-03-30 22:00] VITALS: BP 147/58
[2021-03-31] MEDS: ONDANSETRON 4MG/2ML VIAL IV SCH ×5 (01:22→22:10)
[2021-03-31] MEDS: NS 1,000 ML IV SCH ×3 (03:56→21:58)
[2021-03-31] MEDS: HumaLOG INSULIN (NovoLOG) PER UNIT SC SCH ×4 (05:26→23:59)
[2021-03-31] MEDS: LEVOTHYROXINE 100MCG TABLET (0.1MG) PO SCH (05:42)
[2021-03-31] MEDS: LEVOTHYROXINE 112MCG TABLET (0.112MG) PO SCH (05:42)
[2021-03-31] MEDS: traMADol 50 MG TAB PO PRN (05:46)
[2021-03-31 06:00] VITALS: BP 133/60
[2021-03-31] MEDS: MORPHINE 2 MG/ML 1ML VIAL (J2270) IV PRN ×2 (06:41→14:21)
[2021-03-31 06:53] LABS: MEAN CORPUSCULAR HEMOGLOBIN 28.8 pg (27.0-33.0); MEAN CORPUSCULAR HGB CONC 30.8 g/dl (32.0-36.5); MEAN CORPUSCULAR VOLUME 93.6 fl (80.0-96.0); PLATELET COUNT, AUTOMATED 268 10^3/uL (150-450); RED BLOOD COUNT 4.06 10^6/uL (4.00-5.40); WHITE BLOOD COUNT 6.3 10^3/uL (4.0-10.0)
[2021-03-31 07:00] LABS: HEMOGLOBIN 11.7 g/dl (12.0-15.5)
[2021-03-31 07:11] LABS: ALBUMIN 2.9 GM/DL (3.2-5.2); BILIRUBIN,TOTAL 0.4 MG/DL (0.2-1.0); CALCIUM LEVEL 8.2 MG/DL (8.8-10.2); CREATININE FOR GFR 1.02 MG/DL (0.55-1.30); GLOMERULAR FILTRATION RATE 56.2 (>39); POTASSIUM SERUM 4.3 MEQ/L (3.5-5.1); TOTAL PROTEIN 6.1 GM/DL (6.4-8.2)
--- NOTE | 2021-03-31 08:05 | REPVR ---
PROCEDURE INFORMATION: Exam: XR Chest Exam date and time: 03/31/2021 6:11 AM Age: 75 years old Clinical indication: Device placement; Ng tube; Additional info: Ng tube readjustment - please check placement TECHNIQUE: Imaging protocol: XR of the chest. Views: 1 view. COMPARISON: CR CHEST 2 VIEW 01/06/2021 2:17 PM FINDINGS: Tubes, catheters and devices: A nasogastric tube lies with its tip in the gastric body. Multiple surgical clips are noted in the lower midline neck. Lungs: There is subpleural atelectasis of the dependent portions of the lungs. No acute infiltrate or consolidation is seen. Pleural spaces: No pleural effusion. No pneumothorax. Heart/Mediastinum: The heart demonstrates mild diffuse enlargement. Bones/joints: No acute fracture seen. IMPRESSION: 1. A nasogastric tube lies with its tip in the gastric body. 2. No acute infiltrate or consolidation is seen. Electronically signed by: Kahlil Franks On 03/31/2021 08:04:55 AM
--- NOTE | 2021-03-31 08:20 | IPNPDOC ---
Text Note Date of Service The patient was seen on 03/31/21. NOTE General surgery. Dr. Smith. The patient is a 75-year-old female with previous history of multiple small bowel obstructions admitted with recurrent small bowel obstruction due to large ventral incisional hernia. This morning, the patient states she has been having flatus, no BM yet. Abdominal pain is improved. She is feeling less distended this morning. NG tube is in place. T-max 99.6 2200 03/30/21. VSS Awake and alert, resting in bed, no acute distress NG tube in place. Lungs are clear to auscultation S1-S2 regular rate rhythm Abdomen is obese, still with distention, large ventral hernia is noted but there is no tenderness with palpation over the hernia, reducible. No guarding or rebound. No rigidity. WBC 6.3, this is decreased from 14.1 yesterday. Hemoglobin 11.7. 100 mL documented from NG tube. Assessment/plan Small bowel obstruction with large ventral hernia The patient is reviewed and examined as per Dr. Smith this morning. 100 mL documented from NG tube yesterday The patient has had flatus, no BM yet. Plan is to clamp NG tube and try clear liquids. IVF 90ml/hr Continue to monitor VS,Fishbone, I+O VS, Fishbone, I+O Laboratory Tests 03/31/21 06:16 Vital Signs Date Time Temp Pulse Resp B/P (MAP) Pulse Ox O2 Delivery O2 Flow Rate FiO2 03/31/21 06:55 18 03/31/21 06:41 Nasal Cannula 3.0 03/31/21 06:00 99.3 77 133/60 (84) 95 I&O- Last 24 Hours up to 6 AM 03/31/21 06:00 Intake Total 3780 ml Output Total 1050 ml Balance 2730 ml [place] [address] Mar 31, 2021 08:20
[2021-03-31] MEDS: FUROSEMIDE 40 MG TAB PO SCH (09:47)
[2021-03-31] MEDS: CYANOCOBALAMIN 500 MCG TAB PO SCH (09:47)
[2021-03-31] MEDS: VITAMIN D 1,000 INTERNATIONAL UNITS TABLET PO SCH (09:47)
[2021-03-31] MEDS: allopurinoL 100 MG TAB PO SCH (09:47)
[2021-03-31] MEDS: ATENOLOL 12.5MG PER 1/2 TABLET PO SCH ×2 (09:48→22:10)
[2021-03-31] MEDS: ACETAMINOPHEN 500 MG TAB PO PRN ×2 (10:07→22:11)
--- NOTE | 2021-03-31 13:40 | IPNPDOC ---
Text Note Date of Service The patient was seen on 03/31/21. NOTE Subjective: Patient seen and examined at bedside. Overnight her NG tube became dislodged and was replaced. No new medical complaints this morning. Objective: General: NAD, lying comfortably in bed HEENT: NC/AT, EOMI, NG tube in place Lungs: CTA B/L Heart: +S1S2, RRR, systolic murmur Abd: soft, +BS, obese Ext: peripheral LE edema Neuro: no gross focal deficits Psych: AAOx3 ASSESSMENT AND PLAN: 75 yo female admitted for partial SBO, with PMHx of recurrent SBO #SBO - Recurrent history of SBO in setting of abdominal hernias. - Surgery consulted assistance appreciated - advancing to clear liquid diet - continue NG tube drainage. - Symptoms continue to improve # DM - ISS. Monitor BS. #HTN/hypertensive urgency - secondary to pain #Hypothyroidism - thyroid cancer s/p thyroidectomy. # LUBA - Night time CPAP if able give NG tube #CHF - compensated #HLD VS,Fishbone, I+O VS, Fishbone, I+O Laboratory Tests 03/31/21 06:16 Vital Signs Date Time Temp Pulse Resp B/P (MAP) Pulse Ox O2 Delivery O2 Flow Rate FiO2 03/31/21 09:48 68 177/78 03/31/21 06:55 18 03/31/21 06:41 Nasal Cannula 3.0 03/31/21 06:00 99.3 95 I&O- Last 24 Hours up to 6 AM 03/31/21 06:00 Intake Total 3780 ml Output Total 1050 ml Balance 2730 ml JAQUAN WALLACE MD Mar 31, 2021 13:40
[2021-03-31 14:00] VITALS: BP 166/65
[2021-03-31] MEDS ORDERED: KETOROLAC 30 MG/ML 1ML VIAL IV ONE (17:00)
[2021-03-31 22:00] VITALS: BP 141/63
[2021-03-31] MEDS: LOSARTAN 25 MG TAB PO SCH (22:11)
[2021-03-31] MEDS: ASPIRIN 81MG ENTERIC TABLET PO SCH (22:11)
[2021-04-01] MEDS: ONDANSETRON 4MG/2ML VIAL IV SCH ×6 (02:31→22:24)
[2021-04-01] MEDS: HumaLOG INSULIN (NovoLOG) PER UNIT SC SCH ×3 (05:50→17:29)
[2021-04-01 06:00] VITALS: BP 164/64
[2021-04-01] MEDS: LEVOTHYROXINE 100MCG TABLET (0.1MG) PO SCH (06:00)
[2021-04-01] MEDS: LEVOTHYROXINE 112MCG TABLET (0.112MG) PO SCH (06:00)
[2021-04-01] MEDS: ACETAMINOPHEN 500 MG TAB PO PRN (06:16)
[2021-04-01 07:07] LABS: HEMATOCRIT 38.2 % (36.0-47.0); HEMOGLOBIN 11.5 g/dl (12.0-15.5); MEAN CORPUSCULAR HEMOGLOBIN 28.8 pg (27.0-33.0); MEAN CORPUSCULAR HGB CONC 30.1 g/dl (32.0-36.5); MEAN CORPUSCULAR VOLUME 95.5 fl (80.0-96.0); PLATELET COUNT, AUTOMATED 253 10^3/uL (150-450); WHITE BLOOD COUNT 4.4 10^3/uL (4.0-10.0)
[2021-04-01 07:42] LABS: ALBUMIN 2.8 GM/DL (3.2-5.2); BILIRUBIN,TOTAL 0.3 MG/DL (0.2-1.0); CALCIUM LEVEL 8.3 MG/DL (8.8-10.2); CREATININE FOR GFR 1.12 MG/DL (0.55-1.30); GLOMERULAR FILTRATION RATE 50.5 (>39); POTASSIUM SERUM 4.1 MEQ/L (3.5-5.1); TOTAL PROTEIN 6.1 GM/DL (6.4-8.2)
[2021-04-01] MEDS ORDERED: D5W/0.45% SODIUM CHLORIDE 1,000 ML IV SCH (08:35)
--- NOTE | 2021-04-01 08:36 | IPNPDOC ---
Text Note Date of Service The patient was seen on 04/01/21. NOTE General surgery. Dr. Smith. The patient is a 75-year-old female with previous history of multiple small bowel obstructions admitted with recurrent small bowel obstruction due to large ventral incisional hernia. The patient did not tolerate NG tube clamping and clear liquids yesterday. Currently n.p.o. and NG tube to LIS, the patient states she is having some right upper abdomen discomfort. She denies flatus or BM. No nausea or vomiting. Afebrile VSS Awake and alert, resting in bed, no acute distress NG tube in place. Lungs are clear to auscultation S1-S2 regular rate rhythm Abdomen is obese, still with distention, mild tenderness in the right upper abdomen, large ventral hernia, reducible. No guarding or rebound. No rigidity. WBC 4.4, hemoglobin 11.5 1050 mL documented from NG tube yesterday. 250 mL so far today. Assessment/plan Small bowel obstruction with large ventral hernia The patient is reviewed and examined as per Dr. Smith this morning. The patient did not tolerate trial of clear liquids yesterday. 1050 mL documented from NG tube yesterday The patient has had flatus, no BM yet. IVF Continue NPO Continue NG tube to LIS. Continue to monitor VS,Fishbone, I+O VS, Fishbone, I+O Laboratory Tests 04/01/21 06:03 Vital Signs Date Time Temp Pulse Resp B/P (MAP) Pulse Ox O2 Delivery O2 Flow Rate FiO2 04/01/21 06:00 98.3 84 19 164/64 (97) 97 Nasal Cannula 2.0 I&O- Last 24 Hours up to 6 AM 04/01/21 05:59 Intake Total 2110 ml Output Total 1850 ml Balance 260 ml Libertad Lr Apr 01, 2021 08:36
[2021-04-01] MEDS: allopurinoL 100 MG TAB PO SCH (08:50)
[2021-04-01] MEDS: FUROSEMIDE 40 MG TAB PO SCH (08:50)
[2021-04-01] MEDS: VITAMIN D 1,000 INTERNATIONAL UNITS TABLET PO SCH (08:50)
[2021-04-01] MEDS: CYANOCOBALAMIN 500 MCG TAB PO SCH (08:50)
[2021-04-01] MEDS: ATENOLOL 12.5MG PER 1/2 TABLET PO SCH ×2 (08:51→22:25)
--- NOTE | 2021-04-01 10:57 | IPNPDOC ---
Text Note Date of Service The patient was seen on 04/01/21. NOTE Subjective: Patient seen and examined at bedside.. Unfortunately, she had a bit of a setback through the afternoon and evening yesterday with worsening abdominal pain. No new medical complaints this morning. . She states she generally feels better. Objective: General: NAD, sitting comfortably at edge of bed HEENT: NC/AT, EOMI, NG tube in place Lungs: CTA B/L Heart: +S1S2, RRR, systolic murmur Abd: soft, +BS, obese, large ventral hernia Ext: peripheral LE edema Neuro: no gross focal deficits Psych: AAOx3 ASSESSMENT AND PLAN: 75 yo female admitted for partial SBO, with PMHx of recurrent SBO #SBO - Recurrent history of SBO in setting of abdominal hernias. - Surgery consulted assistance appreciated - did not tolerate CLD yesterday - NPO, sips, chips today - continue NG tube drainage. # DM - ISS. Monitor BS. #HTN/hypertensive urgency on admission - secondary to pain #Hypothyroidism - thyroid cancer s/p thyroidectomy. # LUBA - Night time CPAP if able given NG tube #CHF - clinically compensated #SOB - denies orthopnea or cough - will check cxr for further info, BNP WNL however not sensitive give obesity - supplemental O2 as needed - possibly due to obstruction from NG tube #HLD #DVT prophylaxis VS,Fishbone, I+O VS, Fishbone, I+O Laboratory Tests 04/01/21 06:03 Vital Signs Date Time Temp Pulse Resp B/P (MAP) Pulse Ox O2 Delivery O2 Flow Rate FiO2 04/01/21 08:51 71 155/58 04/01/21 06:00 98.3 19 97 Nasal Cannula 2.0 I&O- Last 24 Hours up to 6 AM 04/01/21 06:00 Intake Total 1650 ml Output Total 2200 ml Balance -550 ml JAQUAN WALLACE MD Apr 01, 2021 10:57
--- NOTE | 2021-04-01 11:26 | REP ---
INDICATION: sob. COMPARISON: 03/31/2021 a portable exam TECHNIQUE: PA and lateral FINDINGS: The nasogastric tube proximal port is at or just distal to the gastroesophageal junction. The tip of the tube is in the stomach body region. The lung olivo are clear and unchanged. There is, however, pulmonary vascular redistribution. The cardiomediastinal silhouette is unchanged. The heart may be mildly enlarged. There is no significant change in the osseous structures. IMPRESSION: 1. Nasogastric tube as described above. 2. Evidence of pulmonary vascular redistribution suggesting early CHF. There is mild cardiomegaly. <Electronically signed by Bear Lloyd > 04/01/21 1124
[2021-04-01 14:00] VITALS: BP 170/71
[2021-04-01 21:00] VITALS: BP 181/69
[2021-04-01] MEDS: LOSARTAN 25 MG TAB PO SCH (22:25)
[2021-04-01] MEDS: ASPIRIN 81MG ENTERIC TABLET PO SCH (22:25)
[2021-04-02] MEDS: ONDANSETRON 4MG/2ML VIAL IV SCH ×6 (01:10→21:48)
[2021-04-02] MEDS: ACETAMINOPHEN 500 MG TAB PO PRN ×2 (01:10→11:09)
[2021-04-02] MEDS: LEVOTHYROXINE 100MCG TABLET (0.1MG) PO SCH (05:50)
[2021-04-02] MEDS: LEVOTHYROXINE 112MCG TABLET (0.112MG) PO SCH (05:53)
[2021-04-02] MEDS: HumaLOG INSULIN (NovoLOG) PER UNIT SC SCH ×4 (06:00→18:00)
--- NOTE | 2021-04-02 10:43 | IPNPDOC ---
Text Note Date of Service The patient was seen on 04/02/21. NOTE No acute events overnight. She feels much better, but her NG output is still brown. She has no pain and is passing flatus still. VSSAF NAD abd - soft, nt, nd, large ventral hernia that is reducible. labs - below A) 75y/o female with SBO secondary to large ventral hernia P) NPO NGT abx will plan on abd xray in the am, and possible clamp NG once the output clears up and the xray is normal. If not improvement in the next 48 hours then she may need a POLO. Dhaval Smith DO VS,Fishbone, I+O VS, Fishbone, I+O Vital Signs Date Time Temp Pulse Resp B/P (MAP) Pulse Ox O2 Delivery O2 Flow Rate FiO2 04/01/21 22:25 191/69 04/01/21 22:25 98 04/01/21 21:00 97.6 18 96 Nasal Cannula 2.0 I&O- Last 24 Hours up to 6 AM 04/02/21 05:59 Intake Total 1880 ml Output Total 4550 ml Balance -2670 ml JA YJAY SMITH DO Apr 02, 2021 10:43
[2021-04-02] MEDS: VITAMIN D 1,000 INTERNATIONAL UNITS TABLET PO SCH (11:00)
[2021-04-02] MEDS: FUROSEMIDE 40 MG TAB PO SCH (11:01)
[2021-04-02] MEDS: ATENOLOL 12.5MG PER 1/2 TABLET PO SCH ×2 (11:02→21:33)
[2021-04-02] MEDS: CYANOCOBALAMIN 500 MCG TAB PO SCH (11:03)
[2021-04-02] MEDS: allopurinoL 100 MG TAB PO SCH (11:03)
[2021-04-02 11:32] LABS: HEMATOCRIT 41.9 % (36.0-47.0); HEMOGLOBIN 12.7 g/dl (12.0-15.5); MEAN CORPUSCULAR HEMOGLOBIN 28.8 pg (27.0-33.0); MEAN CORPUSCULAR HGB CONC 30.3 g/dl (32.0-36.5); PLATELET COUNT, AUTOMATED 290 10^3/uL (150-450); RED BLOOD COUNT 4.41 10^6/uL (4.00-5.40); WHITE BLOOD COUNT 9.2 10^3/uL (4.0-10.0)
[2021-04-02 11:56] LABS: BLOOD UREA NITROGEN 16 MG/DL (7-18); CALCIUM LEVEL 9.5 MG/DL (8.8-10.2); CARBON DIOXIDE LEVEL 36 MEQ/L (21-32); CHLORIDE LEVEL 106 MEQ/L (98-107); CREATININE FOR GFR 0.88 MG/DL (0.55-1.30); GLOMERULAR FILTRATION RATE > 60.0 (>39); GLUCOSE, FASTING 99 MG/DL (70-100); POTASSIUM SERUM 3.8 MEQ/L (3.5-5.1); SODIUM LEVEL 146 MEQ/L (136-145)
[2021-04-02] MEDS ORDERED: LR 1,000 ML IV SCH (12:00)
[2021-04-02] MEDS: FEXOFENADINE 60 MG TAB PO SCH (12:25)
[2021-04-02 14:00] VITALS: BP 139/49
--- NOTE | 2021-04-02 14:02 | IPNPDOC ---
Text Note Date of Service The patient was seen on 04/02/21. NOTE Subjective: Patient seen and examined at bedside. Minimal improvement from yesterday. No new medical complaints this morning. Objective: General: NAD, sitting comfortably at edge of bed HEENT: NC/AT, EOMI, NG tube in place draining dark material Lungs: CTA B/L Heart: +S1S2, RRR, systolic murmur Abd: soft, +BS, obese, large ventral hernia Ext: peripheral LE edema Neuro: no gross focal deficits Psych: AAOx3 ASSESSMENT AND PLAN: 75 yo female admitted for partial SBO, with PMHx of recurrent SBO #SBO - Recurrent history of SBO in setting of abdominal hernias. - Surgery consulted assistance appreciated - NPO, sips, chips today - continue NG tube drainage. # DM - ISS. Monitor BS. #HTN/hypertensive urgency on admission - secondary to pain #Hypothyroidism - thyroid cancer s/p thyroidectomy. # LUBA - Night time CPAP if able given NG tube #CHF - clinically compensated #SOB - denies orthopnea or cough - supplemental O2 as needed - possibly due to obstruction from NG tube complicated with fluid overload - gentle hydration given NPO #HLD #DVT prophylaxis VS,Fishbone, I+O VS, Fishbone, I+O Laboratory Tests 04/02/21 11:16 Vital Signs Date Time Temp Pulse Resp B/P (MAP) Pulse Ox O2 Delivery O2 Flow Rate FiO2 04/02/21 11:02 72 161/59 04/01/21 21:00 97.6 18 96 Nasal Cannula 2.0 I&O- Last 24 Hours up to 6 AM 04/02/21 06:00 Intake Total 1340 ml Output Total 4100 ml Balance -2760 ml JAQUAN WALLACE MD Apr 02, 2021 14:01
[2021-04-02] MEDS: D5W/0.45% SODIUM CHLORIDE 1,000 ML IV SCH (14:46)
[2021-04-02] MEDS: traMADol 50 MG TAB PO PRN (17:27)
[2021-04-02] MEDS: ASPIRIN 81MG ENTERIC TABLET PO SCH (21:33)
[2021-04-02] MEDS: LOSARTAN 25 MG TAB PO SCH (21:34)
[2021-04-02 22:00] VITALS: BP 163/64
[2021-04-03] MEDS: HumaLOG INSULIN (NovoLOG) PER UNIT SC SCH ×4 (00:48→18:00)
[2021-04-03] MEDS: MORPHINE 2 MG/ML 1ML VIAL (J2270) IV PRN ×2 (00:51→18:36)
[2021-04-03] MEDS: ONDANSETRON 4MG/2ML VIAL IV SCH ×6 (01:47→20:48)
[2021-04-03] MEDS: D5W/0.45% SODIUM CHLORIDE 1,000 ML IV SCH (04:11)
[2021-04-03] MEDS: LEVOTHYROXINE 112MCG TABLET (0.112MG) PO SCH (05:26)
[2021-04-03] MEDS: LEVOTHYROXINE 100MCG TABLET (0.1MG) PO SCH (05:26)
[2021-04-03 06:00] VITALS: BP 132/55
[2021-04-03 06:53] LABS: HEMATOCRIT 36.7 % (36.0-47.0); HEMOGLOBIN 11.3 g/dl (12.0-15.5); MEAN CORPUSCULAR HGB CONC 30.8 g/dl (32.0-36.5); MEAN CORPUSCULAR VOLUME 94.1 fl (80.0-96.0); PLATELET COUNT, AUTOMATED 272 10^3/uL (150-450); WHITE BLOOD COUNT 8.3 10^3/uL (4.0-10.0)
[2021-04-03 07:22] LABS: BLOOD UREA NITROGEN 12 MG/DL (7-18); CALCIUM LEVEL 9.1 MG/DL (8.8-10.2); CARBON DIOXIDE LEVEL 37 MEQ/L (21-32); CHLORIDE LEVEL 105 MEQ/L (98-107); CREATININE FOR GFR 0.78 MG/DL (0.55-1.30); GLOMERULAR FILTRATION RATE > 60.0 (>39); GLUCOSE, FASTING 133 MG/DL (70-100); POTASSIUM SERUM 3.2 MEQ/L (3.5-5.1); SODIUM LEVEL 144 MEQ/L (136-145)
[2021-04-03] MEDS: VITAMIN D 1,000 INTERNATIONAL UNITS TABLET PO SCH (08:27)
--- NOTE | 2021-04-03 08:29 | IPNPDOC ---
Text Note Date of Service The patient was seen on 04/03/21. NOTE Subjective: Patient seen and examined at bedside., No new medical complaints this morning. Feels about the same from yesterday. Denies abdominal pain Objective: General: NAD, lying comfortably in bed HEENT: NC/AT, EOMI, NG tube in place draining dark material Lungs: CTA B/L Heart: +S1S2, RRR, systolic murmur Abd: soft, +BS, obese, large ventral hernia Ext: peripheral LE edema Neuro: no gross focal deficits Psych: AAOx3 ASSESSMENT AND PLAN: 75 yo female admitted for partial SBO, with PMHx of recurrent SBO #SBO - Recurrent history of SBO in setting of abdominal hernias. - Surgery consulted assistance appreciated - pending follow-up # DM - ISS. Monitor BS. #HTN/hypertensive urgency on admission - secondary to pain #Hypothyroidism - thyroid cancer s/p thyroidectomy. # LUBA - Night time CPAP if able given NG tube #CHF - clinically compensated #SOB - denies orthopnea or cough - supplemental O2 as needed - possibly due to obstruction from NG tube complicated with fluid overload - gentle hydration given NPO #HLD #Hypokalemia - Check magnesium - Continue to follow and replete as needed #DVT prophylaxis VS,Fishbone, I+O VS, Fishbone, I+O Laboratory Tests 04/02/21 11:16 04/03/21 06:33 Vital Signs Date Time Temp Pulse Resp B/P (MAP) Pulse Ox O2 Delivery O2 Flow Rate FiO2 04/03/21 06:00 98.2 68 16 132/55 (80) 92 Room Air 04/03/21 01:01 2.0 I&O- Last 24 Hours up to 6 AM 04/03/21 06:00 Intake Total 1650 ml Output Total 3750 ml Balance -2100 ml JAQUAN WALLACE MD Apr 03, 2021 08:29
[2021-04-03] MEDS: FEXOFENADINE 60 MG TAB PO SCH (08:37)
[2021-04-03] MEDS: FUROSEMIDE 40 MG TAB PO SCH (08:38)
[2021-04-03] MEDS: allopurinoL 100 MG TAB PO SCH (08:40)
[2021-04-03] MEDS: CYANOCOBALAMIN 500 MCG TAB PO SCH (08:40)
[2021-04-03] MEDS: ATENOLOL 12.5MG PER 1/2 TABLET PO SCH ×2 (08:40→20:48)
[2021-04-03] MEDS: traMADol 50 MG TAB PO PRN ×2 (08:40→23:59)
[2021-04-03] MEDS ORDERED: POTASSIUM CHLORIDE 10% LIQ 20 MEQ/15 ML UDC PO ONE (09:00)
[2021-04-03] MEDS ORDERED: FEXOFENADINE 60 MG TAB PO PRN (09:15)
[2021-04-03] MEDS ORDERED: BACITRACIN OINTMENT 30GM TUBE TOP PRN (09:20)
[2021-04-03] MEDS ORDERED: FUROSEMIDE 20MG/2ML VIAL (J1940) IV ONE (10:00)
--- NOTE | 2021-04-03 10:30 | REP ---
INDICATION: SBO. COMPARISON: Abdomen/pelvis CT dated 03/30/2021. TECHNIQUE: Abdomen/pelvis CT without IV or bowel contrast. FINDINGS: There is a nasogastric tube is interval change terminating in the gastric fundus. The previous small bowel distention has resolved. There is no colonic distention. There is a large ventral hernia as previously. There are knee a contains a loop of small bowel as well as a loop of large bowel. This is unchanged. There is no large bowel distention or obstruction. The visualized lung olivo are unremarkable a. The unenhanced hepatic parenchyma, gallbladder, pancreas, spleen, adrenals and unenhanced kidneys are unremarkable. Abdominal aorta is unremarkable. There is no small bowel or large bowel distention except for a few loops of mid small bowel that remain mildly distended. There is no colonic distention. There is a surgical and S the Modic suture ring in the rectosigmoid colon. This is unchanged. There is no ascites or pneumoperitoneum. Pelvis: The bladder is unremarkable. The uterus is either markedly atrophic or surgically absent. This is unchanged. IMPRESSION: The previous small bowel obstruction has significantly improved after interval placement of a nasogastric tube The small bowel is now nondistended except for a few loops of mid small bowel for main mildly distended. There is no pneumoperitoneum or ascites. There is a large ventral hernia as previously. The hernia contains a loop of small bowel and a loop of large bowel as previously. There is no other interval change. <Electronically signed by Jefry Macias > 04/03/21 1024
[2021-04-03] MEDS: AUGMENTIN 875 MG TAB PO SCH ×2 (11:40→20:44)
[2021-04-03 14:00] VITALS: BP 137/58
[2021-04-03] MEDS ORDERED: MOM 30ML SUSPENSION UDC PO ONE (17:30)
[2021-04-03] MEDS: ASPIRIN 81MG ENTERIC TABLET PO SCH (20:44)
[2021-04-03] MEDS: LOSARTAN 25 MG TAB PO SCH (20:47)
[2021-04-03 22:00] VITALS: BP 131/70
[2021-04-04] MEDS: HumaLOG INSULIN (NovoLOG) PER UNIT SC SCH ×5 (00:32→21:43)
[2021-04-04] MEDS: ONDANSETRON 4MG/2ML VIAL IV SCH ×6 (01:36→21:43)
[2021-04-04] MEDS: LEVOTHYROXINE 100MCG TABLET (0.1MG) PO SCH (05:48)
[2021-04-04] MEDS: LEVOTHYROXINE 112MCG TABLET (0.112MG) PO SCH (05:48)
[2021-04-04 06:00] VITALS: BP 159/65
[2021-04-04 07:43] LABS: HEMATOCRIT 36.8 % (36.0-47.0); HEMOGLOBIN 11.2 g/dl (12.0-15.5); MEAN CORPUSCULAR HEMOGLOBIN 28.9 pg (27.0-33.0); MEAN CORPUSCULAR HGB CONC 30.4 g/dl (32.0-36.5); MEAN CORPUSCULAR VOLUME 94.8 fl (80.0-96.0); PLATELET COUNT, AUTOMATED 281 10^3/uL (150-450); RED BLOOD COUNT 3.88 10^6/uL (4.00-5.40); WHITE BLOOD COUNT 8.4 10^3/uL (4.0-10.0)
[2021-04-04] MEDS ORDERED: FLEET ENEMA PR ONE (08:00)
[2021-04-04 08:14] LABS: BLOOD UREA NITROGEN 14 MG/DL (7-18); CALCIUM LEVEL 9.1 MG/DL (8.8-10.2); CARBON DIOXIDE LEVEL 37 MEQ/L (21-32); CHLORIDE LEVEL 101 MEQ/L (98-107); CREATININE FOR GFR 0.76 MG/DL (0.55-1.30); GLOMERULAR FILTRATION RATE > 60.0 (>39); GLUCOSE, FASTING 114 MG/DL (70-100); POTASSIUM SERUM 3.7 MEQ/L (3.5-5.1); SODIUM LEVEL 142 MEQ/L (136-145)
[2021-04-04] MEDS: AUGMENTIN 875 MG TAB PO SCH ×2 (10:18→21:44)
[2021-04-04] MEDS: allopurinoL 100 MG TAB PO SCH (10:18)
[2021-04-04] MEDS: VITAMIN D 1,000 INTERNATIONAL UNITS TABLET PO SCH (10:18)
[2021-04-04] MEDS: CYANOCOBALAMIN 500 MCG TAB PO SCH (10:19)
[2021-04-04] MEDS: ATENOLOL 12.5MG PER 1/2 TABLET PO SCH ×2 (10:19→21:45)
[2021-04-04] MEDS: FUROSEMIDE 40 MG TAB PO SCH (10:19)
--- NOTE | 2021-04-04 12:17 | IPNPDOC ---
Text Note Date of Service The patient was seen on 04/04/21. NOTE Patient seen and examined today. I had the CT scan abdomen pelvis done yester day to evaluate where she stands with regards to her bowel obstruction, incarcerated hernia as it was difficult to assess the NG tube output as well as her clinical exam given her morbid obesity. The CT scan is showing improvement of the bowel distention. She still has not have any bowel movement though she is reporting flatus now. Overnight I had them clamped the nasogastric tube and allowed her clear liquids which she was been doing all along. She reports no nausea, no abdominal cramping and has been tolerating the tube clamped. Vital signs are stable. She remains afebrile. Examination She is seen sitting up on the bed, looks very comfortable. Her nasogastric tube has been clamped overnight Abdominal exam shows a markedly round, protuberant abdomen, very minimally distended if any most prominent at the upper abdomen. I could make up some of the compartments of her infraumbilical hernia and I think I could reduce some of it but this is hard to confirm whether this is reduced intra-abdominally or just in one of her hernia compartments. She is nontender. Impression and plan Large incisional hernia in a patient who is morbidly obese with a BMI 52.5 I think she is opening up eventually and she so far has tolerated the tube clamped so I am discontinuing the tube and allowing her some oral diet. She wishes to have some crackers on putting her up on a BRAT diet and we can advance this accordingly. I have given her a dose of milk of magnesia last night and the fleets enema this morning. We could continue to give her some laxatives to help her move her bowel. I encouraged her to continue to ambulate outside. VS,Fishbone, I+O VS, Fishbone, I+O Laboratory Tests 04/04/21 06:42 Vital Signs Date Time Temp Pulse Resp B/P (MAP) Pulse Ox O2 Delivery O2 Flow Rate FiO2 04/04/21 10:19 95 156/64 04/04/21 06:00 97.1 20 96 Nasal Cannula 2.0 I&O- Last 24 Hours up to 6 AM 04/04/21 06:00 Intake Total 1140 ml Output Total 1000 ml Balance 140 ml PASCUAL MCINTOSH MD Apr 04, 2021 12:17
[2021-04-04 14:00] VITALS: BP 152/63
--- NOTE | 2021-04-04 15:27 | IPNPDOC ---
Text Note Date of Service The patient was seen on 04/04/21. NOTE Subjective: Patient seen and examined at bedside., No new medical complaints this morning. Denies abdominal pain. Objective: General: NAD, lying comfortably in bed HEENT: NC/AT, EOMI, NG tube in place draining dark material Lungs: CTA B/L Heart: +S1S2, RRR, systolic murmur Abd: soft, +BS, obese, large ventral hernia Ext: peripheral LE edema Neuro: no gross focal deficits Psych: AAOx3 ASSESSMENT AND PLAN: 75 yo female admitted for partial SBO, with PMHx of recurrent SBO #SBO - Recurrent history of SBO in setting of abdominal hernias. - Surgery consulted assistance appreciated - d/c NG tube, start diet # DM - ISS. Monitor BS. #HTN/hypertensive urgency on admission - resolved - secondary to pain #Hypothyroidism - thyroid cancer s/p thyroidectomy. # LUBA - Night time CPAP #CHF - clinically compensated #SOB - denies orthopnea or cough - supplemental O2 as needed - possibly due to obstruction from NG tube complicated with fluid overload #HLD #Hypokalemia - Check magnesium - Continue to follow and replete as needed #DVT prophylaxis VS,Fishbone, I+O VS, Fishbone, I+O Laboratory Tests 04/04/21 06:42 Vital Signs Date Time Temp Pulse Resp B/P (MAP) Pulse Ox O2 Delivery O2 Flow Rate FiO2 04/04/21 10:19 95 156/64 04/04/21 06:00 97.1 20 96 Nasal Cannula 2.0 I&O- Last 24 Hours up to 6 AM 04/04/21 06:00 Intake Total 1140 ml Output Total 1000 ml Balance 140 ml JAQUAN WALLACE MD Apr 04, 2021 15:27
[2021-04-04] MEDS ORDERED: GLUCAGON INJ 1MG VIAL SC PRN (17:30)
[2021-04-04] MEDS ORDERED: DEXTROSE 50% 50 ML SYRINGE IV PRN (17:30)
[2021-04-04] MEDS ORDERED: GLUCOSE 4GM CHEW TABLET PO PRN (17:30)
[2021-04-04] MEDS: ASPIRIN 81MG ENTERIC TABLET PO SCH (21:44)
[2021-04-04] MEDS: LOSARTAN 25 MG TAB PO SCH (21:45)
[2021-04-04 22:00] VITALS: BP 145/60
[2021-04-05] MEDS: ONDANSETRON 4MG/2ML VIAL IV SCH ×6 (02:00→22:00)
[2021-04-05] MEDS: LEVOTHYROXINE 112MCG TABLET (0.112MG) PO SCH (05:13)
[2021-04-05] MEDS: LEVOTHYROXINE 100MCG TABLET (0.1MG) PO SCH (05:14)
[2021-04-05 06:00] VITALS: BP 147/59
[2021-04-05 06:35] LABS: HEMATOCRIT 35.7 % (36.0-47.0); MEAN CORPUSCULAR HEMOGLOBIN 28.6 pg (27.0-33.0); MEAN CORPUSCULAR HGB CONC 30.8 g/dl (32.0-36.5); PLATELET COUNT, AUTOMATED 276 10^3/uL (150-450); RED BLOOD COUNT 3.84 10^6/uL (4.00-5.40); WHITE BLOOD COUNT 7.4 10^3/uL (4.0-10.0)
[2021-04-05 07:01] LABS: BLOOD UREA NITROGEN 12 MG/DL (7-18); CALCIUM LEVEL 8.7 MG/DL (8.8-10.2); CARBON DIOXIDE LEVEL 37 MEQ/L (21-32); CHLORIDE LEVEL 99 MEQ/L (98-107); GLOMERULAR FILTRATION RATE > 60.0 (>39); GLUCOSE, FASTING 128 MG/DL (70-100); POTASSIUM SERUM 3.8 MEQ/L (3.5-5.1); SODIUM LEVEL 141 MEQ/L (136-145)
[2021-04-05] MEDS: HumaLOG INSULIN (NovoLOG) PER UNIT SC SCH ×4 (08:54→21:00)
[2021-04-05] MEDS: VITAMIN D 1,000 INTERNATIONAL UNITS TABLET PO SCH (08:55)
[2021-04-05] MEDS: CYANOCOBALAMIN 500 MCG TAB PO SCH (08:55)
[2021-04-05] MEDS: allopurinoL 100 MG TAB PO SCH (08:56)
[2021-04-05] MEDS: AUGMENTIN 875 MG TAB PO SCH ×2 (08:56→21:39)
[2021-04-05] MEDS: ATENOLOL 12.5MG PER 1/2 TABLET PO SCH ×2 (08:57→21:40)
[2021-04-05] MEDS: FUROSEMIDE 100MG/10ML VIAL (J1940) IV ONE ×2 (09:20→09:44)
[2021-04-05] MEDS ORDERED: FUROSEMIDE 80 MG TAB PO ONE (10:10)
--- NOTE | 2021-04-05 12:00 | IPNPDOC ---
Text Note Date of Service The patient was seen on 04/05/21. NOTE No acute events over the weekend. She feels much better and is passing flatus and had a few BMs yesterday. No complaints this am. VSSAF NAD abd - soft, nt, nd, large ventral hernia that is reducible. labs - below A) 75y/o female with SBO secondary to large ventral hernia that has resolved P) low residue diet ambulate frequently stable for d/c from surgical standpoint f/u in office as needed. Dhaval Smith DO VS,Baylee, I+O VS, Isiahe, I+O Laboratory Tests 04/05/21 06:10 Vital Signs Date Time Temp Pulse Resp B/P (MAP) Pulse Ox O2 Delivery O2 Flow Rate FiO2 04/05/21 08:57 73 138/58 04/05/21 06:00 97.0 18 96 Nasal Cannula 2.0 I&O- Last 24 Hours up to 6 AM 04/05/21 05:59 Intake Total 1223 ml Output Total 775 ml Balance 448 ml JAY JAY SMITH DO Apr 05, 2021 12:00
--- NOTE | 2021-04-05 13:50 | IPNPDOC ---
Text Note Date of Service The patient was seen on 04/05/21. NOTE Subjective: Patient seen and examined at bedside., No new medical complaints this morning. Denies abdominal pain. Objective: General: NAD, lying comfortably in bed HEENT: NC/AT, EOMI Lungs: CTA B/L Heart: +S1S2, RRR, systolic murmur Abd: soft, +BS, obese, large ventral hernia Ext: peripheral LE edema Neuro: no gross focal deficits Psych: AAOx3 ASSESSMENT AND PLAN: 75 yo female admitted for partial SBO, with PMHx of recurrent SBO #SBO - Recurrent history of SBO in setting of abdominal hernias. - Surgery consulted assistance appreciated - d/c NG tube, start diet # DM - ISS. Monitor BS. #HTN/hypertensive urgency on admission - resolved - secondary to pain #Hypothyroidism - thyroid cancer s/p thyroidectomy. # LUBA - Night time CPAP #CHF - slightly fluid overloaded - resuming lasix, higher am dose - wean O2 #SOB - likely fluid overload as above - diurese, wean O2 #HLD #Hypokalemia - Check magnesium - Continue to follow and replete as needed #DVT prophylaxis VS,Fishbone, I+O VS, Fishbone, I+O Laboratory Tests 04/05/21 06:10 Vital Signs Date Time Temp Pulse Resp B/P (MAP) Pulse Ox O2 Delivery O2 Flow Rate FiO2 04/05/21 08:57 73 138/58 04/05/21 06:00 97.0 18 96 Nasal Cannula 2.0 I&O- Last 24 Hours up to 6 AM 04/05/21 05:59 Intake Total 1223 ml Output Total 775 ml Balance 448 ml JAQUAN WALLACE MD Apr 05, 2021 13:49
[2021-04-05 14:00] VITALS: BP 128/51
[2021-04-05] MEDS ORDERED: FUROSEMIDE 40 MG TAB PO SCH (17:00)
[2021-04-05 21:19] VITALS: BP 146/69
[2021-04-05] MEDS: ASPIRIN 81MG ENTERIC TABLET PO SCH (21:39)
[2021-04-05] MEDS: LOSARTAN 25 MG TAB PO SCH (21:41)
[2021-04-06] MEDS: ONDANSETRON 4MG/2ML VIAL IV SCH ×4 (01:41→12:20)
[2021-04-06] MEDS: LEVOTHYROXINE 112MCG TABLET (0.112MG) PO SCH (05:41)
[2021-04-06] MEDS: LEVOTHYROXINE 100MCG TABLET (0.1MG) PO SCH (05:41)
[2021-04-06 06:00] VITALS: BP 133/44
[2021-04-06 06:30] LABS: HEMATOCRIT 34.7 % (36.0-47.0); HEMOGLOBIN 10.7 g/dl (12.0-15.5); MEAN CORPUSCULAR HEMOGLOBIN 28.7 pg (27.0-33.0); MEAN CORPUSCULAR HGB CONC 30.8 g/dl (32.0-36.5); PLATELET COUNT, AUTOMATED 251 10^3/uL (150-450); RED BLOOD COUNT 3.73 10^6/uL (4.00-5.40); WHITE BLOOD COUNT 7.2 10^3/uL (4.0-10.0)
[2021-04-06 06:57] LABS: BLOOD UREA NITROGEN 13 MG/DL (7-18); CALCIUM LEVEL 8.8 MG/DL (8.8-10.2); CARBON DIOXIDE LEVEL 37 MEQ/L (21-32); CHLORIDE LEVEL 99 MEQ/L (98-107); CREATININE FOR GFR 0.89 MG/DL (0.55-1.30); GLOMERULAR FILTRATION RATE > 60.0 (>39); GLUCOSE, FASTING 146 MG/DL (70-100); POTASSIUM SERUM 4.1 MEQ/L (3.5-5.1); SODIUM LEVEL 141 MEQ/L (136-145)
[2021-04-06] MEDS: AUGMENTIN 875 MG TAB PO SCH (08:53)
[2021-04-06] MEDS: HumaLOG INSULIN (NovoLOG) PER UNIT SC SCH ×2 (08:53→12:20)
[2021-04-06] MEDS: CYANOCOBALAMIN 500 MCG TAB PO SCH (08:54)
[2021-04-06] MEDS: allopurinoL 100 MG TAB PO SCH (08:54)
[2021-04-06] MEDS: VITAMIN D 1,000 INTERNATIONAL UNITS TABLET PO SCH (08:54)
[2021-04-06 08:55] VITALS: BP 130/52
[2021-04-06] MEDS: ATENOLOL 12.5MG PER 1/2 TABLET PO SCH (08:55)
[2021-04-06] MEDS: FUROSEMIDE 40 MG TAB PO SCH (09:24)
[2021-04-06] MEDS ORDERED: AMOX875T2 PO (11:20)
--- NOTE | 2021-04-06 23:10 | DS.PDOC ---
Discharge Summary General Date of Admission Mar 30, 2021 at 11:36 Date of Discharge Apr 06, 2021 Specialist/Consultants Involve General surgery, Dr. Smith Discharge Summary PROCEDURES PERFORMED DURING STAY: None ADMITTING DIAGNOSES: 1. SBO 2. DM type 2 3. Hypertensive urgency 4. Hypothyroidism 5. LUBA 6. Chronic HFpEF 7. HLD DISCHARGE DIAGNOSES: 1. SBO 2. DM type 2 3. Hypertensive urgency 4. Hypothyroidism 5. LUBA 6. Acute iatrogenic HFpEF 7. HLD COMPLICATIONS/CHIEF COMPLAINT: Small Bowel Obstruction. HISTORY OF PRESENT ILLNESS: Copied from admitting attending's H&P " 75-year-old female presents for one day history of worsening abdominal pain, constipation, decreased appetite, subjective fevers and chills. She has a history of SBO's, and large ventral hernia not amenable to surgical repair. In the ED, a CT scan showed a SBO, with transition point at her ventral hernia. She notes generalized abdominal pain, mostly periumbilical, 6/10, intermittent, with no clear modifying factors, nausea without vomiting. She denies chest pain, headaches, changes in vision, or depressed mood. " HOSPITAL COURSE: General surgery evaluated the patient and recommended conservative management. Patient had NGT placed, IV antibiotics, and NPO. Patient did well and symptoms improved. NGT was removed and patient tolerated a diet. Otherwise, had become hypoxic during hospitalization which was thought to be secondary to IVF during patient's NPO period. Patient was taken off IVF and diuresed. This morning, patient felt well and felt ready for home. She did desaturate with ambulation, but patient did not want to stay another day in the hospital. Patient did qualify for home oxygen. Patient discharged home with home oxygen. DISCHARGE MEDICATIONS: Please see below. ALLERGIES: Please see below. PHYSICAL EXAMINATION ON DISCHARGE: VITAL SIGNS: Please see below. GENERAL: Comfortable, in no apparent distress HEENT: Head normocephalic, atraumatic NECK: Supple CARDIOVASCULAR EXAMINATION: Regular rate and rhythm RESPIRATORY EXAMINATION: Lungs clear to auscultation bilaterally ABDOMINAL EXAMINATION: Soft, normal bowel sounds EXTREMITIES: Bilateral lower extremity edema NEUROLOGICAL EXAMINATION: No gross focal deficits PSYCHIATRIC EXAMINATION: Normal mood and affect LABORATORY DATA: Please see below. IMAGING: Radiologist interpretation CT abd/pelvis without contrast Small bowel obstruction transition point in the right lower quadrant at the level large lobulated ventral abdominal hernia best appreciated on axial image number [id number]. CXR 1. Nasogastric tube as described above. 2. Evidence of pulmonary vascular redistribution suggesting early CHF. There is mild cardiomegaly. Repeat CT abd/pelvis without contrast The previous small bowel obstruction has significantly improved after interval placement of a nasogastric tube The small bowel is now nondistended except for a few loops of mid small bowel for main mildly distended. There is no pneumoperitoneum or ascites. There is a large ventral hernia as previously. The hernia contains a loop of small bowel and a loop of large bowel as previously. There is no other interval change. PROGNOSIS: Good ACTIVITY: As tolerated. DIET: Low residue diet DISCHARGE PLAN: Home DISPOSITION: 01 Home, Self-Care. DISCHARGE INSTRUCTIONS: 1. Follow up with PCP in 1 week DISCHARGE CONDITION: Stable Total time spent on discharge planning, discharge summary, and medication reconciliation: 45 minutes Vital Signs/I&Os Vital Signs Date Time Temp Pulse Resp B/P (MAP) Pulse Ox O2 Delivery O2 Flow Rate FiO2 04/06/21 08:55 70 130/52 04/06/21 06:00 98.3 17 97 Nasal Cannula 1.0 I&O- Last 24 Hours up to 6 AM 04/06/21 06:00 Intake Total 1120 ml Output Total 1450 ml Balance -330 ml Laboratory Data Labs 24H Laboratory Tests 2 04/06/21 06:05: Nucleated Red Blood Cells % (auto) 0.0, Anion Gap 5L, Glomerular Filtration Rate > 60.0, Calcium Level 8.8 04/06/21 11:27: Bedside Glucose (Misc Panel) 147H CBC/BMP Laboratory Tests 04/06/21 06:05 FSBS Laboratory Tests Test 04/06/21 11:27 Range/Units Bedside Glucose (Misc Panel) 147 83-110 MG/DL Discharge Medications Scheduled Allopurinol (Zyloprim) 100 Mg Tablet, 300 MG PO DAILY, (Reported) Amoxicillin/Potassium Clav (Amox-Clav 875-125 mg Tablet) 1 Each Tablet, 875 MG PO BID Aspirin (Aspirin EC) 81 Mg Tabec, 81 MG PO QHS, (Reported) Atenolol (Atenolol) 25 Mg Tablet, 12.5 MG PO BID, (Reported) Cholecalciferol (Vitamin D3) (Vitamin D3) 1,000 Unit Tablet, 5,000 UNITS PO DAILY, (Reported) Cyanocobalamin (Vitamin B-12) (Vitamin B-12) 500 Mcg Tab, 500 MCG PO DAILY, (Reported) Furosemide (Furosemide) 40 Mg Tablet, 60 MG PO QAM, (Reported) Furosemide (Furosemide) 40 Mg Tablet, 40 MG PO QHS, (Reported) Insulin Glargine,Hum.rec.anlog (Toujeo Solostar) 300 Unit/Ml Inj, 74 UNIT SC DAILY, (Reported) Insulin Human Lispro (Humalog) 1 Units/0.01 Ml Inj, 18 UNITS SC BID, (Reported) BEFORE LUNCH AND DINNER Levothyroxine Sodium (Synthroid) 112 Mcg Tablet, 112 MCG PO DAILY, (Reported) TAKES WITH 100MCG FOR TOTAL DOSE 212MCG Levothyroxine Sodium (Levothyroxine Sodium) 100 Mcg Tablet, 100 MCG PO QAM, (Reported) TAKES WITH 112MCG FOR TOTAL DOSE 212MCG Losartan Potassium (Losartan Potassium) 100 Mg Tab, 25 MG PO QHS, (Reported) Scheduled PRN Acetaminophen (Acetaminophen) 500 Mg Tab, 1,000 MG PO Q6H PRN for PAIN, (Reported) Tramadol HCl (Tramadol HCl) 50 Mg Tablet, 50 MG PO TID PRN for PAIN LEVEL 4-7, (Reported) Allergies Coded Allergies: Contrast Media (Unverified Allergy, Unknown, 08/08/16) phenol (Verified Allergy, Unknown, 05/19/19) TAPE (Verified Adverse Reaction, Intermediate, ERYTHEMA ALSO WITH BANDAIDS, 08/08/16) exenatide (Verified Adverse Reaction, Intermediate, RASH AT INJECTION SITE, 03/30/21) nitrofurantoin (Verified Adverse Reaction, Mild, ITCH, 03/30/21) TOSHIA SILVER DO Apr 06, 2021 23:10
== END 2021-04-06 15:20 | disposition home or self-care (01) | DRG 393 ==
LOC: M ED 06:38 → M ED INP 11:36 → ENRESERV 14:45 → M MSPAV 15:31
PROVIDERS: ADMIT Internal Medicine; ATTEND Internal Medicine
DX: K43.6 Other and unspecified ventral hernia with obstruction, without gangrene (principal); I50.33 Acute on chronic diastolic (congestive) heart failure; Z68.43 Body mass index [BMI] 50.0-59.9, adult; E11.9 Type 2 diabetes mellitus without complications; I50.9 Heart failure, unspecified; G47.33 Obstructive sleep apnea (adult) (pediatric); E78.5 Hyperlipidemia, unspecified; E87.6 Hypokalemia; E89.0 Postprocedural hypothyroidism; E66.01 Morbid (severe) obesity due to excess calories; I16.0 Hypertensive urgency; Z90.49 Acquired absence of other specified parts of digestive tract; Z98.49 Cataract extraction status, unspecified eye; Z96.652 Presence of left artificial knee joint; Z20.822 Contact with and (suspected) exposure to COVID-19; Z79.4 Long term (current) use of insulin; Z79.82 Long term (current) use of aspirin; Z85.850 Personal history of malignant neoplasm of thyroid; Z79.899 Other long term (current) drug therapy; Z91.041 Radiographic dye allergy status; Z91.048 Other nonmedicinal substance allergy status; Z88.8 Allergy status to other drugs, medicaments and biological substances

== ENCOUNTER → 2021-04-20 | Outpatient (REF) | payer MEDICARE ==
[~2021-04-20] MED LIST changes: +AMOX875T2 PO; +D31000TA2 PO; +LEVO100T5 PO; +TRAM50TA2 PO; +ZYLO100T2 PO
== END ==
LOC: M LAB REF 16:26
PROVIDERS: ATTEND Nurse Practitioner Adult Health
DX: M51.36 Other intervertebral disc degeneration, lumbar region (principal)

== ENCOUNTER → 2021-05-11 | Outpatient (CLI) | payer MEDICARE ==
--- NOTE | 2021-05-11 14:33 | REP ---
INDICATION: OTHER INTERVERTEBRAL DISC DEGENERATION. COMPARISON: CT 04/03/2021. TECHNIQUE/RADIOTRACER AND DOSE: Following the intravenous administration of 22.0 mCi technetium 99 M MDP, the lumbar and pelvic region is imaged in the blood flow, blood pool and delayed phases of imaging in multiple projections. FINDINGS: There is no evidence of abnormal blood flow or blood pooling. Delayed images show increased uptake at the facets of L5-S1 and also at the L4-5 disc space. There is mild increased uptake on the left at the L1-2 and L2-3 disc spaces. Renal and bladder activity are seen. 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 This is most significant at L4-5 and L5-S1. <Electronically signed by Jefry Cartagena > 05/11/21 1312
== END ==
LOC: M RAD 09:50
PROVIDERS: ATTEND Physician Assistant
DX: M51.36 Other intervertebral disc degeneration, lumbar region (principal)
CPT/HCPCS: 78315; A9503

== ENCOUNTER → 2021-05-17 | Outpatient (REF) | payer MEDICARE ==
[~2021-05-17] MED LIST changes: +LOSA100T45 PO; -LOSA100T50 PO; +LOSA50TA28 PO; -LOSA50TA88 PO
== END ==
LOC: M LAB REF 13:33
PROVIDERS: ATTEND Internal Medicine Nephrology
DX: N18.32 Chronic kidney disease, stage 3b (principal); E11.22 Type 2 diabetes mellitus with diabetic chronic kidney disease

== ENCOUNTER → 2021-05-18 | Outpatient (CLI) | payer MEDICARE ==
[~2021-05-18] MED LIST changes: -LOSA100T45 PO; +LOSA100T50 PO; -LOSA50TA28 PO; +LOSA50TA88 PO
--- NOTE | 2021-05-18 13:42 | DEXAMM ---
INDICATION: M85.80 DISORDER OF BONE. COMPARISON: None. TECHNIQUE: Bone density was measured using dual-energy x-ray absorptionmetry (DEXA). FINDINGS: AP SPINE L1-L4 BMD 1.454 g/cm2 Young Adult T-Score 2.1 Age Matched Z-Score 3.9. LT FEMUR, TOTAL BMD 0.901 g/cm2 Young Adult T-Score -0.8 Age Matched Z-Score 0.9. LT NECK BMD 0.792 g/cm2 Young Adult T-Score -1.8 Age Matched Z-Score 0.2. RT FEMUR, TOTAL BMD 0.869 g/cm2 Young Adult T-Score -1.1 Age Matched Z-Score 0.7. RT NECK BMD 0.787 g/cm2 Young Adult T-Score -1.8 Age Matched Z-Score 0.1. IMPRESSION: There is normal bone density of the spine. There is low bone density of the left hip. There is low bone density of the right hip. FOLLOW-UP: Recommendation for the next bone density exam: 2 years. <Electronically signed by Alo Oviedo > 05/18/21 [id number]
== END ==
LOC: M WHC 12:55
PROVIDERS: ATTEND Nurse Practitioner Adult Health
DX: M81.0 Age-related osteoporosis without current pathological fracture (principal)

== ENCOUNTER → 2021-06-01 | Outpatient (REF) | payer MEDICARE | LOC: M LAB REF 17:00 | PROVIDERS: ATTEND Nurse Practitioner Adult Health | DX: M17.11 Unilateral primary osteoarthritis, right knee (principal); M51.26 Other intervertebral disc displacement, lumbar region ==

== ENCOUNTER → 2021-08-24 | Outpatient (REF) | payer MEDICARE ==
[~2021-08-24] MED LIST changes: +LOSA100T45 PO; -LOSA100T50 PO; +LOSA50TA28 PO; -LOSA50TA88 PO
[2021-08-24 17:05] LABS: C REACTIVE PROTEIN QUANTITATIV 3.77 MG/DL (0.00-0.30)
[2021-08-24 17:16] LABS: THYROID PEROXIDASE ANTIBODY < 28.0 U/ML (<60.0)
[2021-08-24 17:17] LABS: THYROGLOBULIN ANTIBODY < 15.0 U/ML (<60.0)
[2021-08-26 21:07] LABS: ANTINUCLEAR ANTIBODIES DIRECT Negative (Negative); CYCLIC CITRULLINATED PEPTIDE 6 units (0-19)
== END ==
LOC: M LAB REF 16:19
PROVIDERS: ATTEND Nurse Practitioner Adult Health
DX: R79.82 Elevated C-reactive protein (CRP) (principal); M25.50 Pain in unspecified joint; E89.0 Postprocedural hypothyroidism

== ENCOUNTER → 2022-02-22 | Outpatient (CLI) | payer MEDICARE ==
[~2022-02-22] MED LIST changes: -D31000TA2 PO; +READI-CAT 2 As Ordered ONE; +VITA100093 PO
== END ==
LOC: M RAD 11:02
PROVIDERS: ATTEND Nurse Practitioner Adult Health
DX: R10.9 Unspecified abdominal pain (principal)

== ENCOUNTER → 2022-03-09 | Outpatient (REF) | payer MEDICARE ==
[~2022-03-09] MED LIST changes: -READI-CAT 2 As Ordered ONE
== END ==
LOC: M LAB REF 16:16
PROVIDERS: ATTEND Nurse Practitioner Adult Health
DX: R79.82 Elevated C-reactive protein (CRP) (principal)

== ENCOUNTER 2022-10-15 09:26 | Inpatient (IN) | payer MEDICARE ==
[~2022-10-15] VITALS: Ht 149.9 cm; Wt 123.0 kg
[2022-10-15 10:31] LABS: BASO % 0.2 % (0.0-1.0); EOS # 0.1 10^3/uL (0.0-0.5); EOS % 0.7 % (0.0-3.0); HEMATOCRIT 45.2 % (36.0-47.0); HEMOGLOBIN 14.1 g/dl (12.0-15.5); LYMPH # 1.5 10^3/uL (1.5-5.0); LYMPH % 11.3 % (24.0-44.0); MEAN CORPUSCULAR HEMOGLOBIN 28.7 pg (27.0-33.0); MEAN CORPUSCULAR HGB CONC 31.2 g/dl (32.0-36.5); MEAN CORPUSCULAR VOLUME 92.1 fl (80.0-96.0); MONO # 0.5 10^3/uL (0.0-0.8); MONO % 3.7 % (2.0-8.0); NEUTROPHILS # 11.2 10^3/uL (1.5-8.5); NEUTROPHILS % 83.6 % (36.0-66.0); PLATELET COUNT, AUTOMATED 346 10^3/uL (150-450); RED BLOOD COUNT 4.91 10^6/uL (4.00-5.40); WHITE BLOOD COUNT 13.4 10^3/uL (4.0-10.0)
[2022-10-15 10:43] LABS: INR 0.94; PROTHROMBIN TIME 12.8 SECONDS (12.5-14.5)
[2022-10-15 10:59] LABS: CK-MB VALUE MASS 1.5 NG/ML (<3.6)
[2022-10-15 11:01] LABS: BILIRUBIN,DIRECT 0.1 MG/DL (<0.4); BILIRUBIN,TOTAL 0.5 MG/DL (0.3-1.2); CALCIUM LEVEL 10.3 MG/DL (8.3-10.6); CREATININE FOR GFR 1.28 MG/DL (0.55-1.30); GLOMERULAR FILTRATION RATE 43.2 (>39); MB/CK RELATIVE INDEX 1.7 (< OR =4); POTASSIUM SERUM 4.6 MMOL/L (3.5-5.1); TOTAL PROTEIN 7.8 G/DL (5.7-8.2)
[2022-10-15] MEDS ORDERED: MORPHINE 2 MG/ML 1ML VIAL IV ONE ×2 (11:15→11:45)
[2022-10-15] MEDS ORDERED: ONDANSETRON 4MG 2ML VIAL IV ONE (11:45)
[2022-10-15] MEDS ORDERED: NS 500 ML IV ONE (12:30)
[2022-10-15] MEDS ORDERED: NS 1,000 ML IV ONE (12:30)
[2022-10-15] MEDS ORDERED: NS 250 ML IV ONE (12:30)
[2022-10-15] MEDS: NS 1,000 ML IV SCH ×2 (12:38→20:50)
[2022-10-15 12:50] LABS: CK-MB VALUE MASS 1.6 NG/ML (<3.6)
[2022-10-15 12:53] LABS: MB/CK RELATIVE INDEX 1.81 (< OR =4)
[2022-10-15 13:25] LABS: RSV AMPLIFICATION NEGATIVE (NEGATIVE)
[2022-10-15] MEDS ORDERED: GLUCOSE 4GM CHEW TABLET PO PRN ×2 (13:35→15:50)
[2022-10-15] MEDS ORDERED: DEXTROSE 50% 50ML SYRINGE IV PRN ×2 (13:35→15:50)
[2022-10-15] MEDS ORDERED: GLUCAGON INJ 1MG VIAL SC PRN ×2 (13:35→15:50)
[2022-10-15] MEDS ORDERED: ALLO300T2 PO (14:14)
[2022-10-15] MEDS ORDERED: HOME MED LIST COMPLETE! XX SCH (14:20)
[2022-10-15 15:00] VITALS: BP 142/70
[2022-10-15] MEDS ORDERED: FUROSEMIDE 40MG/4ML VIAL IV ONE (15:00)
[2022-10-15] MEDS: INSULIN LISPRO (NovoLOG) PER UNIT SC SCH ×2 (17:30→21:00)
[2022-10-15] MEDS ORDERED: INSULIN LISPRO (NovoLOG) PER UNIT SC SCH (18:00)
[2022-10-15] MEDS: MORPHINE 2 MG/ML 1ML VIAL IV PRN (18:53)
[2022-10-15 20:08] LABS: PARTIAL THROMBOPLASTIN TIME 28.4 SECONDS (24.8-34.2)
[2022-10-15] MEDS: LEVEMIR (INSULIN DETEMIR) 1 UNITS/0.01ML SC SCH (20:49)
[2022-10-15] MEDS: ENOXAPARIN 40MG/0.4ML SYRINGE (J1650 PER 10MG) SC SCH (20:49)
[2022-10-15 21:37] VITALS: BP 144/67
[2022-10-16] MEDS: MORPHINE 2 MG/ML 1ML VIAL IV PRN ×3 (02:18→20:42)
[2022-10-16 06:00] VITALS: BP 148/64
[2022-10-16 06:38] LABS: BASO % 0.2 % (0.0-1.0); EOS # 0.1 10^3/uL (0.0-0.5); EOS % 1.1 % (0.0-3.0); HEMATOCRIT 39.8 % (36.0-47.0); LYMPH # 1.3 10^3/uL (1.5-5.0); LYMPH % 22.5 % (24.0-44.0); MEAN CORPUSCULAR HEMOGLOBIN 28.7 pg (27.0-33.0); MEAN CORPUSCULAR HGB CONC 30.4 g/dl (32.0-36.5); MEAN CORPUSCULAR VOLUME 94.5 fl (80.0-96.0); MONO # 0.5 10^3/uL (0.0-0.8); MONO % 9.3 % (2.0-8.0); NEUTROPHILS # 3.7 10^3/uL (1.5-8.5); NEUTROPHILS % 66.7 % (36.0-66.0); PLATELET COUNT, AUTOMATED 306 10^3/uL (150-450); RED BLOOD COUNT 4.21 10^6/uL (4.00-5.40); WHITE BLOOD COUNT 5.6 10^3/uL (4.0-10.0)
[2022-10-16 06:43] LABS: HEMOGLOBIN 12.1 g/dl (12.0-15.5)
[2022-10-16] MEDS: NS 1,000 ML IV SCH (06:56)
[2022-10-16] MEDS: INSULIN LISPRO (NovoLOG) PER UNIT SC SCH ×4 (07:30→20:44)
[2022-10-16 07:39] LABS: ALBUMIN 2.9 G/DL (3.2-5.2); BILIRUBIN,TOTAL 0.5 MG/DL (0.3-1.2); CALCIUM LEVEL 8.8 MG/DL (8.3-10.6); CREATININE FOR GFR 1.27 MG/DL (0.55-1.30); GLOMERULAR FILTRATION RATE 43.6 (>39); MAGNESIUM LEVEL 2.3 MG/DL (1.8-2.4); POTASSIUM SERUM 4.6 MMOL/L (3.5-5.1); TOTAL PROTEIN 6.4 G/DL (5.7-8.2)
[2022-10-16] MEDS: LEVEMIR (INSULIN DETEMIR) 1 UNITS/0.01ML SC SCH ×2 (09:00→21:00)
[2022-10-16] MEDS: FUROSEMIDE 40MG/4ML VIAL IV SCH (09:44)
[2022-10-16 14:00] VITALS: BP 145/70
[2022-10-16] MEDS: ENOXAPARIN 40MG/0.4ML SYRINGE (J1650 PER 10MG) SC SCH (20:42)
[2022-10-16] MEDS ORDERED: LEVEMIR (INSULIN DETEMIR) 1 UNITS/0.01ML SC SCH (21:00)
[2022-10-16 22:00] VITALS: BP 148/68
[2022-10-17] MEDS: NS 1,000 ML IV SCH ×2 (03:40→21:01)
[2022-10-17 06:00] VITALS: BP 144/69
[2022-10-17 06:18] LABS: BASO % 0.2 % (0.0-1.0); EOS # 0.1 10^3/uL (0.0-0.5); HEMATOCRIT 36.6 % (36.0-47.0); HEMOGLOBIN 11.1 g/dl (12.0-15.5); LYMPH # 1.2 10^3/uL (1.5-5.0); LYMPH % 24.7 % (24.0-44.0); MEAN CORPUSCULAR HGB CONC 30.3 g/dl (32.0-36.5); MEAN CORPUSCULAR VOLUME 95.6 fl (80.0-96.0); MONO # 0.4 10^3/uL (0.0-0.8); MONO % 8.7 % (2.0-8.0); NEUTROPHILS # 3.3 10^3/uL (1.5-8.5); NEUTROPHILS % 64.8 % (36.0-66.0); PLATELET COUNT, AUTOMATED 272 10^3/uL (150-450); RED BLOOD COUNT 3.83 10^6/uL (4.00-5.40)
[2022-10-17 06:52] LABS: ALBUMIN 2.9 G/DL (3.2-5.2); BILIRUBIN,TOTAL 0.5 MG/DL (0.3-1.2); CALCIUM LEVEL 8.8 MG/DL (8.3-10.6); GLOMERULAR FILTRATION RATE 57.4 (>39); MAGNESIUM LEVEL 2.3 MG/DL (1.8-2.4)
[2022-10-17] MEDS: INSULIN LISPRO (NovoLOG) PER UNIT SC SCH ×4 (07:30→21:00)
[2022-10-17] MEDS: LEVEMIR (INSULIN DETEMIR) 1 UNITS/0.01ML SC SCH ×2 (09:00→21:00)
[2022-10-17] MEDS: DOCUSATE SODIUM 100MG CAPSULE PO SCH ×2 (09:32→21:00)
[2022-10-17] MEDS: FUROSEMIDE 40MG/4ML VIAL IV SCH (09:33)
[2022-10-17] MEDS: ACETAMINOPHEN TAB 650MG DOSE (2X325MG) PO PRN ×2 (12:11→21:00)
[2022-10-17 14:00] VITALS: BP 163/62
[2022-10-17] MEDS ORDERED: LR 1,000 ML IV SCH (16:55)
[2022-10-17] MEDS: ENOXAPARIN 40MG/0.4ML SYRINGE (J1650 PER 10MG) SC SCH (20:59)
[2022-10-17 22:00] VITALS: BP 161/61
[2022-10-18 06:00] VITALS: BP 160/61
[2022-10-18] MEDS: NS 1,000 ML IV SCH ×2 (06:20→13:23)
[2022-10-18 06:31] LABS: BASO % 0.3 % (0.0-1.0); EOS # 0.1 10^3/uL (0.0-0.5); EOS % 1.6 % (0.0-3.0); HEMATOCRIT 36.6 % (36.0-47.0); HEMOGLOBIN 11.3 g/dl (12.0-15.5); LYMPH # 1.3 10^3/uL (1.5-5.0); LYMPH % 17.1 % (24.0-44.0); MEAN CORPUSCULAR HGB CONC 30.9 g/dl (32.0-36.5); MEAN CORPUSCULAR VOLUME 94.1 fl (80.0-96.0); MONO # 0.5 10^3/uL (0.0-0.8); MONO % 5.9 % (2.0-8.0); NEUTROPHILS # 5.7 10^3/uL (1.5-8.5); PLATELET COUNT, AUTOMATED 345 10^3/uL (150-450); RED BLOOD COUNT 3.89 10^6/uL (4.00-5.40); WHITE BLOOD COUNT 7.6 10^3/uL (4.0-10.0)
[2022-10-18 07:10] LABS: ALKALINE PHOSPHATASE 91 U/L (46-116); ALT/SGPT 18 U/L (7.0-40); AST/SGOT 45 U/L (<34); BILIRUBIN,TOTAL 0.4 MG/DL (0.3-1.2); BLOOD UREA NITROGEN 19 MG/DL (9-23); CALCIUM LEVEL 8.7 MG/DL (8.3-10.6); CARBON DIOXIDE LEVEL 26 MMOL/L (20-31); CHLORIDE LEVEL 110 MMOL/L (98-107); CREATININE FOR GFR 0.94 MG/DL (0.55-1.30); GLOMERULAR FILTRATION RATE > 60.0 (>39); GLUCOSE, FASTING 91 MG/DL (74-106); MAGNESIUM LEVEL 2.2 MG/DL (1.8-2.4); POTASSIUM SERUM 4.2 MMOL/L (3.5-5.1); SODIUM LEVEL 145 MMOL/L (136-145); TOTAL PROTEIN 6.4 G/DL (5.7-8.2)
[2022-10-18] MEDS: INSULIN LISPRO (NovoLOG) PER UNIT SC SCH ×4 (07:30→21:00)
[2022-10-18] MEDS: DOCUSATE SODIUM 100MG CAPSULE PO SCH ×2 (08:17→21:27)
[2022-10-18] MEDS: LEVEMIR (INSULIN DETEMIR) 1 UNITS/0.01ML SC SCH ×2 (08:27→21:00)
[2022-10-18] MEDS ORDERED: FUROSEMIDE 20MG/2ML VIAL IV SCH (09:00)
[2022-10-18] MEDS: ACETAMINOPHEN TAB 650MG DOSE (2X325MG) PO PRN ×2 (09:56→21:27)
[2022-10-18 14:25] VITALS: BP 140/55
[2022-10-18] MEDS: ENOXAPARIN 40MG/0.4ML SYRINGE (J1650 PER 10MG) SC SCH (21:26)
[2022-10-18] MEDS: SENNA 8.6 MG TAB (SENOKOT) PO SCH (21:27)
[2022-10-18 22:06] VITALS: BP 177/70
[2022-10-18] MEDS ORDERED: LOSARTAN 50MG TABLET PO ONE (22:35)
[2022-10-18 22:45] VITALS: BP 177/70
[2022-10-18 23:55] VITALS: BP 170/68
[2022-10-19] MEDS ORDERED: diphenhydrAMINE 50MG/ML VIAL IV ONE (01:00)
[2022-10-19 01:26] VITALS: BP 170/68
[2022-10-19 03:00] VITALS: BP 157/74
[2022-10-19] MEDS: ACETAMINOPHEN TAB 650MG DOSE (2X325MG) PO PRN (03:06)
[2022-10-19 05:37] VITALS: BP 161/73
[2022-10-19 06:41] LABS: BASO % 0.2 % (0.0-1.0); EOS # 0.1 10^3/uL (0.0-0.5); EOS % 1.3 % (0.0-3.0); HEMATOCRIT 36.7 % (36.0-47.0); HEMOGLOBIN 11.1 g/dl (12.0-15.5); LYMPH # 1.3 10^3/uL (1.5-5.0); LYMPH % 21.1 % (24.0-44.0); MEAN CORPUSCULAR HEMOGLOBIN 28.5 pg (27.0-33.0); MEAN CORPUSCULAR HGB CONC 30.2 g/dl (32.0-36.5); MEAN CORPUSCULAR VOLUME 94.3 fl (80.0-96.0); MONO # 0.4 10^3/uL (0.0-0.8); MONO % 6.9 % (2.0-8.0); NEUTROPHILS # 4.4 10^3/uL (1.5-8.5); NEUTROPHILS % 70.2 % (36.0-66.0); PLATELET COUNT, AUTOMATED 296 10^3/uL (150-450); RED BLOOD COUNT 3.89 10^6/uL (4.00-5.40); WHITE BLOOD COUNT 6.2 10^3/uL (4.0-10.0)
[2022-10-19 07:13] LABS: ALBUMIN 2.8 G/DL (3.2-5.2); ALKALINE PHOSPHATASE 83 U/L (46-116); ALT/SGPT 16 U/L (7.0-40); AST/SGOT 25 U/L (<34); BILIRUBIN,TOTAL 0.4 MG/DL (0.3-1.2); BLOOD UREA NITROGEN 18 MG/DL (9-23); CALCIUM LEVEL 8.8 MG/DL (8.3-10.6); CARBON DIOXIDE LEVEL 30 MMOL/L (20-31); CHLORIDE LEVEL 110 MMOL/L (98-107); CREATININE FOR GFR 0.85 MG/DL (0.55-1.30); GLOMERULAR FILTRATION RATE > 60.0 (>39); GLUCOSE, FASTING 92 MG/DL (74-106); MAGNESIUM LEVEL 2.2 MG/DL (1.8-2.4); POTASSIUM SERUM 3.8 MMOL/L (3.5-5.1); SODIUM LEVEL 150 MMOL/L (136-145); TOTAL PROTEIN 5.8 G/DL (5.7-8.2)
[2022-10-19] MEDS: INSULIN LISPRO (NovoLOG) PER UNIT SC SCH ×4 (07:30→20:32)
[2022-10-19] MEDS: LEVEMIR (INSULIN DETEMIR) 1 UNITS/0.01ML SC SCH ×2 (08:00→20:48)
[2022-10-19] MEDS: NS 1,000 ML IV SCH ×2 (09:00→14:47)
[2022-10-19] MEDS: SENNA 8.6 MG TAB (SENOKOT) PO SCH ×2 (09:43→20:49)
[2022-10-19] MEDS: DOCUSATE SODIUM 100MG CAPSULE PO SCH ×2 (09:43→20:49)
[2022-10-19] MEDS: FUROSEMIDE 40MG/4ML VIAL IV SCH (09:45)
[2022-10-19] MEDS: allopurinoL 300 MG TAB PO SCH (13:37)
[2022-10-19 14:00] VITALS: BP 154/75
[2022-10-19 20:08] VITALS: BP 185/84
[2022-10-19] MEDS: ENOXAPARIN 40MG/0.4ML SYRINGE (J1650 PER 10MG) SC SCH (20:49)
[2022-10-19 21:09] LABS: BLOOD UREA NITROGEN 15 MG/DL (9-23); CALCIUM LEVEL 8.4 MG/DL (8.3-10.6); CARBON DIOXIDE LEVEL 32 MMOL/L (20-31); CHLORIDE LEVEL 107 MMOL/L (98-107); CREATININE FOR GFR 0.79 MG/DL (0.55-1.30); GLOMERULAR FILTRATION RATE > 60.0 (>39); GLUCOSE, FASTING 125 MG/DL (74-106); POTASSIUM SERUM 3.4 MMOL/L (3.5-5.1); SODIUM LEVEL 144 MMOL/L (136-145)
[2022-10-20] MEDS: ACETAMINOPHEN TAB 650MG DOSE (2X325MG) PO PRN ×2 (03:22→22:19)
[2022-10-20 06:01] VITALS: BP 123/79
[2022-10-20] MEDS: LEVOTHYROXINE 112MCG TABLET (0.112MG) PO SCH (06:05)
[2022-10-20] MEDS: LEVOTHYROXINE 100MCG TABLET (0.1MG) PO SCH (06:05)
[2022-10-20 06:33] LABS: BASO % 0.1 % (0.0-1.0); EOS # 0.1 10^3/uL (0.0-0.5); EOS % 1.4 % (0.0-3.0); HEMATOCRIT 36.7 % (36.0-47.0); HEMOGLOBIN 11.5 g/dl (12.0-15.5); LYMPH # 1.7 10^3/uL (1.5-5.0); LYMPH % 23.9 % (24.0-44.0); MEAN CORPUSCULAR HEMOGLOBIN 28.5 pg (27.0-33.0); MEAN CORPUSCULAR HGB CONC 31.3 g/dl (32.0-36.5); MEAN CORPUSCULAR VOLUME 91.1 fl (80.0-96.0); MONO # 0.4 10^3/uL (0.0-0.8); MONO % 6.2 % (2.0-8.0); NEUTROPHILS # 4.7 10^3/uL (1.5-8.5); PLATELET COUNT, AUTOMATED 305 10^3/uL (150-450); RED BLOOD COUNT 4.03 10^6/uL (4.00-5.40)
[2022-10-20 07:47] LABS: ALKALINE PHOSPHATASE 90 U/L (46-116); ALT/SGPT 22 U/L (7.0-40); AST/SGOT 31 U/L (<34); BILIRUBIN,TOTAL 0.7 MG/DL (0.3-1.2); BLOOD UREA NITROGEN 14 MG/DL (9-23); CALCIUM LEVEL 8.9 MG/DL (8.3-10.6); CARBON DIOXIDE LEVEL 29 MMOL/L (20-31); CHLORIDE LEVEL 103 MMOL/L (98-107); CREATININE FOR GFR 0.84 MG/DL (0.55-1.30); GLOMERULAR FILTRATION RATE > 60.0 (>39); GLUCOSE, FASTING 110 MG/DL (74-106); MAGNESIUM LEVEL 1.8 MG/DL (1.8-2.4); POTASSIUM SERUM 3.5 MMOL/L (3.5-5.1); SODIUM LEVEL 141 MMOL/L (136-145); TOTAL PROTEIN 6.1 G/DL (5.7-8.2)
[2022-10-20] MEDS: FUROSEMIDE 40MG/4ML VIAL IV SCH (10:03)
[2022-10-20] MEDS: LEVEMIR (INSULIN DETEMIR) 1 UNITS/0.01ML SC SCH ×2 (10:05→21:00)
[2022-10-20] MEDS: INSULIN LISPRO (NovoLOG) PER UNIT SC SCH ×4 (10:06→20:34)
[2022-10-20] MEDS: SENNA 8.6 MG TAB (SENOKOT) PO SCH ×2 (10:06→20:36)
[2022-10-20] MEDS: allopurinoL 300 MG TAB PO SCH (10:06)
[2022-10-20] MEDS: DOCUSATE SODIUM 100MG CAPSULE PO SCH ×2 (10:07→20:36)
[2022-10-20] MEDS ORDERED: POTASSIUM CHLORIDE 10MEQ SR TABLET PO ONE (10:30)
[2022-10-20 14:00] VITALS: BP 153/59
[2022-10-20 20:27] VITALS: BP 160/84
[2022-10-20] MEDS: ENOXAPARIN 40MG/0.4ML SYRINGE (J1650 PER 10MG) SC SCH (20:36)
[2022-10-21] MEDS: ACETAMINOPHEN TAB 650MG DOSE (2X325MG) PO PRN (04:39)
[2022-10-21] MEDS: LEVOTHYROXINE 100MCG TABLET (0.1MG) PO SCH (05:44)
[2022-10-21] MEDS: LEVOTHYROXINE 112MCG TABLET (0.112MG) PO SCH (05:44)
[2022-10-21 05:53] VITALS: BP 149/70
[2022-10-21 06:12] LABS: BASO % 0.3 % (0.0-1.0); EOS # 0.1 10^3/uL (0.0-0.5); HEMATOCRIT 37.6 % (36.0-47.0); HEMOGLOBIN 11.8 g/dl (12.0-15.5); LYMPH # 1.7 10^3/uL (1.5-5.0); LYMPH % 24.6 % (24.0-44.0); MEAN CORPUSCULAR HEMOGLOBIN 28.7 pg (27.0-33.0); MEAN CORPUSCULAR HGB CONC 31.4 g/dl (32.0-36.5); MEAN CORPUSCULAR VOLUME 91.5 fl (80.0-96.0); MONO # 0.3 10^3/uL (0.0-0.8); MONO % 4.8 % (2.0-8.0); NEUTROPHILS # 4.7 10^3/uL (1.5-8.5); PLATELET COUNT, AUTOMATED 291 10^3/uL (150-450); RED BLOOD COUNT 4.11 10^6/uL (4.00-5.40); WHITE BLOOD COUNT 6.9 10^3/uL (4.0-10.0)
[2022-10-21 07:24] LABS: ALKALINE PHOSPHATASE 88 U/L (46-116); ALT/SGPT 28 U/L (7.0-40); AST/SGOT 43 U/L (<34); BILIRUBIN,TOTAL 0.5 MG/DL (0.3-1.2); BLOOD UREA NITROGEN 13 MG/DL (9-23); CALCIUM LEVEL 8.6 MG/DL (8.3-10.6); CARBON DIOXIDE LEVEL 30 MMOL/L (20-31); CHLORIDE LEVEL 105 MMOL/L (98-107); CREATININE FOR GFR 0.85 MG/DL (0.55-1.30); GLOMERULAR FILTRATION RATE > 60.0 (>39); GLUCOSE, FASTING 98 MG/DL (74-106); MAGNESIUM LEVEL 1.7 MG/DL (1.8-2.4); POTASSIUM SERUM 3.7 MMOL/L (3.5-5.1); SODIUM LEVEL 140 MMOL/L (136-145); TOTAL PROTEIN 6.1 G/DL (5.7-8.2)
[2022-10-21] MEDS: INSULIN LISPRO (NovoLOG) PER UNIT SC SCH ×2 (07:30→11:56)
[2022-10-21] MEDS: LEVEMIR (INSULIN DETEMIR) 1 UNITS/0.01ML SC SCH (08:48)
[2022-10-21] MEDS: DOCUSATE SODIUM 100MG CAPSULE PO SCH (08:49)
[2022-10-21] MEDS: allopurinoL 300 MG TAB PO SCH (08:50)
[2022-10-21] MEDS: SENNA 8.6 MG TAB (SENOKOT) PO SCH (08:50)
[2022-10-21] MEDS ORDERED: MAGN500T6 PO (08:51)
[2022-10-21] MEDS: FUROSEMIDE 40MG/4ML VIAL IV SCH (08:51)
[2022-10-21] MEDS ORDERED: MAG SULF 1GM/100ML (MAG RUN) 1 GM in IV 1 EA IV ONE (09:00)
== END 2022-10-21 12:32 | disposition home or self-care (01) | DRG 389 ==
LOC: M ED 09:26 → M ED INP 13:53 → ENRESERV 14:16 → M MS5PR 15:00
PROVIDERS: ADMIT Internal Medicine; ATTEND Internal Medicine
DX: K56.609 Unspecified intestinal obstruction, unspecified as to partial versus complete obstruction (principal); I50.32 Chronic diastolic (congestive) heart failure; E87.20 Acidosis, unspecified; Z68.43 Body mass index [BMI] 50.0-59.9, adult; K43.9 Ventral hernia without obstruction or gangrene; I34.0 Nonrheumatic mitral (valve) insufficiency; E11.9 Type 2 diabetes mellitus without complications; E89.0 Postprocedural hypothyroidism; I11.0 Hypertensive heart disease with heart failure; G47.33 Obstructive sleep apnea (adult) (pediatric); M10.9 Gout, unspecified; M19.90 Unspecified osteoarthritis, unspecified site; E66.01 Morbid (severe) obesity due to excess calories; D64.9 Anemia, unspecified; I27.81 Cor pulmonale (chronic); E83.42 Hypomagnesemia; E86.0 Dehydration; Z85.850 Personal history of malignant neoplasm of thyroid; Z79.4 Long term (current) use of insulin; Z79.82 Long term (current) use of aspirin; Z79.890 Hormone replacement therapy; Z79.899 Other long term (current) drug therapy; Z88.8 Allergy status to other drugs, medicaments and biological substances; Z91.041 Radiographic dye allergy status; Z91.048 Other nonmedicinal substance allergy status; Z87.442 Personal history of urinary calculi; Z98.41 Cataract extraction status, right eye; Z98.42 Cataract extraction status, left eye; Z96.1 Presence of intraocular lens; Z96.652 Presence of left artificial knee joint; Z90.49 Acquired absence of other specified parts of digestive tract

== ENCOUNTER 2022-12-20 06:48 | Inpatient (IN) | payer MEDICARE ==
[~2022-12-20] VITALS: Ht 152.4 cm; Wt 120.5 kg
[~2022-12-20 06:48] MED LIST changes: +ALLO300T2 PO; +MAGN500T6 PO
[2022-12-20] MEDS ORDERED: MORPHINE 4 MG/ML 1ML VIAL IV ONE ×2 (07:25→10:35)
[2022-12-20] MEDS ORDERED: ONDANSETRON 4MG 2ML VIAL IV ONE (07:25)
[2022-12-20] MEDS ORDERED: NS 1,000 ML IV ONE ×3 (07:25→12:45)
[2022-12-20] MEDS: READI-CAT 2 PO SCH ×2 (08:15→08:52)
[2022-12-20 08:16] LABS: BASO % 0.2 % (0.0-1.0); EOS % 0.1 % (0.0-3.0); HEMATOCRIT 45.2 % (36.0-47.0); HEMOGLOBIN 14.4 g/dl (12.0-15.5); LYMPH # 0.7 10^3/uL (1.5-5.0); LYMPH % 4.3 % (24.0-44.0); MEAN CORPUSCULAR HEMOGLOBIN 29.2 pg (27.0-33.0); MEAN CORPUSCULAR HGB CONC 31.9 g/dl (32.0-36.5); MEAN CORPUSCULAR VOLUME 91.7 fl (80.0-96.0); MONO # 0.6 10^3/uL (0.0-0.8); NEUTROPHILS # 14.5 10^3/uL (1.5-8.5); NEUTROPHILS % 91.1 % (36.0-66.0); PLATELET COUNT, AUTOMATED 344 10^3/uL (150-450); RED BLOOD COUNT 4.93 10^6/uL (4.00-5.40); WHITE BLOOD COUNT 15.9 10^3/uL (4.0-10.0)
[2022-12-20 08:50] LABS: ALKALINE PHOSPHATASE 121 U/L (46-116); ALT/SGPT 20 U/L (7.0-40); AST/SGOT 41 U/L (<34); BILIRUBIN,DIRECT < 0.1 MG/DL (<0.4); BILIRUBIN,TOTAL 0.4 MG/DL (0.3-1.2); BLOOD UREA NITROGEN 42 MG/DL (9-23); CALCIUM LEVEL 10.2 MG/DL (8.3-10.6); CARBON DIOXIDE LEVEL 28 MMOL/L (20-31); CHLORIDE LEVEL 99 MMOL/L (98-107); CREATININE FOR GFR 1.26 MG/DL (0.55-1.30); GLOMERULAR FILTRATION RATE 43.8 (>39); GLUCOSE, FASTING 231 MG/DL (74-106); LIPASE 28 U/L (12-53); POTASSIUM SERUM 5.5 MMOL/L (3.5-5.1); SODIUM LEVEL 138 MMOL/L (136-145)
[2022-12-20] MEDS ORDERED: PIPERACILLIN/TAZOBACTAM SOD 4.5 GM in D5W MINI-BAG PLUS 50 ML IV ONE (09:15)
[2022-12-20] MEDS ORDERED: MAGN50TA PO (11:30)
[2022-12-20] MEDS ORDERED: HOME MED LIST COMPLETE! XX SCH (11:35)
[2022-12-20 12:34] LABS: RSV AMPLIFICATION NEGATIVE (NEGATIVE)
[2022-12-20] MEDS ORDERED: ONDANSETRON 4MG 2ML VIAL IV PRN (13:55)
[2022-12-20] MEDS ORDERED: LR 1,000 ML IV SCH ×2 (14:10→15:00)
[2022-12-20] MEDS ORDERED: GLUCOSE 4GM CHEW TABLET PO PRN (14:25)
[2022-12-20] MEDS ORDERED: MORPHINE 4 MG/ML 1ML VIAL IV PRN (14:25)
[2022-12-20] MEDS ORDERED: GLUCAGON INJ 1MG VIAL SC PRN (14:25)
[2022-12-20] MEDS ORDERED: DEXTROSE 50% 50ML SYRINGE IV PRN (14:25)
[2022-12-20] MEDS: LEVOTHYROXINE 100MCG (0.1MG) 5ML SDV PF (SOLUTION FORM) IV SCH (15:08)
[2022-12-20] MEDS: LEVEMIR (INSULIN DETEMIR) 1 UNITS/0.01ML SC SCH (15:08)
[2022-12-20] MEDS: INSULIN LISPRO (NovoLOG) PER UNIT SC SCH ×2 (15:09→18:00)
[2022-12-20 15:26] LABS: CALCIUM LEVEL 8.6 MG/DL (8.3-10.6); CREATININE FOR GFR 1.23 MG/DL (0.55-1.30); GLOMERULAR FILTRATION RATE 45.1 (>39); POTASSIUM SERUM 4.6 MMOL/L (3.5-5.1)
[2022-12-20] MEDS: PIPERACILLIN/TAZOBACTAM SOD 3.375 GM in D5W MINI-BAG PLUS 50 ML IV SCH ×2 (15:33→20:37)
[2022-12-20 16:40] VITALS: BP 148/68
[2022-12-20] MEDS: MORPHINE 2 MG/ML 1ML VIAL IV PRN (20:37)
[2022-12-20] MEDS ORDERED: ENOXAPARIN 30MG/0.3ML SYRINGE (J1650 PER 10MG) SC SCH (21:00)
[2022-12-20 22:00] VITALS: BP 147/66
[2022-12-21] MEDS: PIPERACILLIN/TAZOBACTAM SOD 3.375 GM in D5W MINI-BAG PLUS 50 ML IV SCH ×2 (02:26→10:05)
[2022-12-21] MEDS: MORPHINE 2 MG/ML 1ML VIAL IV PRN (03:06)
[2022-12-21] MEDS: INSULIN LISPRO (NovoLOG) PER UNIT SC SCH ×5 (05:40→23:25)
[2022-12-21 06:00] VITALS: BP 136/55
[2022-12-21] MEDS: LEVOTHYROXINE 100MCG (0.1MG) 5ML SDV PF (SOLUTION FORM) IV SCH (06:06)
[2022-12-21 07:22] LABS: BASO % 0.4 % (0.0-1.0); EOS # 0.1 10^3/uL (0.0-0.5); EOS % 2.5 % (0.0-3.0); HEMATOCRIT 36.5 % (36.0-47.0); LYMPH # 1.3 10^3/uL (1.5-5.0); LYMPH % 25.6 % (24.0-44.0); MEAN CORPUSCULAR HEMOGLOBIN 29.2 pg (27.0-33.0); MEAN CORPUSCULAR HGB CONC 31.2 g/dl (32.0-36.5); MEAN CORPUSCULAR VOLUME 93.6 fl (80.0-96.0); MONO # 0.5 10^3/uL (0.0-0.8); MONO % 9.1 % (2.0-8.0); NEUTROPHILS # 3.2 10^3/uL (1.5-8.5); NEUTROPHILS % 62.2 % (36.0-66.0); PLATELET COUNT, AUTOMATED 263 10^3/uL (150-450); WHITE BLOOD COUNT 5.2 10^3/uL (4.0-10.0)
[2022-12-21 07:25] LABS: ALBUMIN 2.8 G/DL (3.2-5.2); BILIRUBIN,TOTAL 0.5 MG/DL (0.3-1.2); CALCIUM LEVEL 8.3 MG/DL (8.3-10.6); CREATININE FOR GFR 1.26 MG/DL (0.55-1.30); GLOMERULAR FILTRATION RATE 43.8 (>39); MAGNESIUM LEVEL 2.4 MG/DL (1.8-2.4); POTASSIUM SERUM 4.2 MMOL/L (3.5-5.1)
[2022-12-21 07:33] LABS: HEMOGLOBIN 11.4 g/dl (12.0-15.5)
[2022-12-21] MEDS: LEVEMIR (INSULIN DETEMIR) 1 UNITS/0.01ML SC SCH (09:00)
[2022-12-21] MEDS: VITAMIN D 1,000 INTERNATIONAL UNITS TABLET PO SCH (12:52)
[2022-12-21] MEDS: allopurinoL 300 MG TAB PO SCH (12:52)
[2022-12-21] MEDS: CYANOCOBALAMIN 500 MCG TAB PO SCH (12:52)
[2022-12-21] MEDS: ASPIRIN 81MG ENTERIC TABLET PO SCH (12:52)
[2022-12-21 14:00] VITALS: BP 128/65
[2022-12-21] MEDS: MAGNESIUM GLUCONATE 500 MG TAB PO SCH (14:38)
[2022-12-21] MEDS: ENOXAPARIN 60MG/0.6ML SYRINGE (J1650 PER 10MG) SC SCH ×2 (14:38→21:11)
[2022-12-21 20:45] VITALS: BP 140/70
[2022-12-21] MEDS ORDERED: ACETAMINOPHEN TAB 650MG DOSE (2X325MG) PO PRN (23:50)
[2022-12-22] MEDS: INSULIN LISPRO (NovoLOG) PER UNIT SC SCH ×4 (06:00→17:30)
[2022-12-22 06:04] VITALS: BP 142/66
[2022-12-22] MEDS: LEVOTHYROXINE 100MCG TABLET (0.1MG) PO SCH (06:17)
[2022-12-22] MEDS: LEVOTHYROXINE 112MCG TABLET (0.112MG) PO SCH (06:17)
[2022-12-22 06:29] LABS: BASO % 0.4 % (0.0-1.0); EOS # 0.2 10^3/uL (0.0-0.5); EOS % 3.3 % (0.0-3.0); HEMATOCRIT 33.8 % (36.0-47.0); HEMOGLOBIN 10.5 g/dl (12.0-15.5); LYMPH # 1.5 10^3/uL (1.5-5.0); LYMPH % 26.5 % (24.0-44.0); MEAN CORPUSCULAR HEMOGLOBIN 28.8 pg (27.0-33.0); MEAN CORPUSCULAR HGB CONC 31.1 g/dl (32.0-36.5); MEAN CORPUSCULAR VOLUME 92.9 fl (80.0-96.0); MONO # 0.4 10^3/uL (0.0-0.8); MONO % 7.2 % (2.0-8.0); NEUTROPHILS # 3.6 10^3/uL (1.5-8.5); NEUTROPHILS % 62.4 % (36.0-66.0); PLATELET COUNT, AUTOMATED 243 10^3/uL (150-450); RED BLOOD COUNT 3.64 10^6/uL (4.00-5.40); WHITE BLOOD COUNT 5.7 10^3/uL (4.0-10.0)
[2022-12-22 06:48] LABS: ALBUMIN 2.6 G/DL (3.2-5.2); BILIRUBIN,TOTAL 0.3 MG/DL (0.3-1.2); CALCIUM LEVEL 8.3 MG/DL (8.3-10.6); CREATININE FOR GFR 1.06 MG/DL (0.55-1.30); GLOMERULAR FILTRATION RATE 53.5 (>39); MAGNESIUM LEVEL 2.3 MG/DL (1.8-2.4); POTASSIUM SERUM 3.7 MMOL/L (3.5-5.1); TOTAL PROTEIN 5.5 G/DL (5.7-8.2)
[2022-12-22] MEDS: LEVEMIR (INSULIN DETEMIR) 1 UNITS/0.01ML SC SCH (07:11)
[2022-12-22] MEDS: CYANOCOBALAMIN 500 MCG TAB PO SCH (08:25)
[2022-12-22] MEDS: allopurinoL 300 MG TAB PO SCH (08:25)
[2022-12-22] MEDS: ASPIRIN 81MG ENTERIC TABLET PO SCH (08:25)
[2022-12-22] MEDS: VITAMIN D 1,000 INTERNATIONAL UNITS TABLET PO SCH (08:25)
[2022-12-22] MEDS: ENOXAPARIN 60MG/0.6ML SYRINGE (J1650 PER 10MG) SC SCH ×2 (08:26→20:57)
[2022-12-22] MEDS: MAGNESIUM GLUCONATE 500 MG TAB PO SCH (12:34)
[2022-12-22] MEDS: MOM 30ML SUSPENSION UDC PO SCH ×2 (13:24→20:57)
[2022-12-22 14:00] VITALS: BP 151/67
[2022-12-22 20:04] VITALS: BP 154/70
[2022-12-22] MEDS ORDERED: INSULIN LISPRO (NovoLOG) PER UNIT SC SCH (21:00)
[2022-12-23 05:29] VITALS: BP 146/72
[2022-12-23] MEDS: LEVOTHYROXINE 100MCG TABLET (0.1MG) PO SCH (05:49)
[2022-12-23] MEDS: LEVOTHYROXINE 112MCG TABLET (0.112MG) PO SCH (05:49)
[2022-12-23 06:14] LABS: BASO % 0.4 % (0.0-1.0); EOS # 0.2 10^3/uL (0.0-0.5); HEMOGLOBIN 10.8 g/dl (12.0-15.5); LYMPH # 1.6 10^3/uL (1.5-5.0); LYMPH % 21.2 % (24.0-44.0); MEAN CORPUSCULAR HEMOGLOBIN 28.8 pg (27.0-33.0); MEAN CORPUSCULAR HGB CONC 31.8 g/dl (32.0-36.5); MEAN CORPUSCULAR VOLUME 90.7 fl (80.0-96.0); MONO # 0.4 10^3/uL (0.0-0.8); MONO % 5.4 % (2.0-8.0); NEUTROPHILS # 5.2 10^3/uL (1.5-8.5); NEUTROPHILS % 70.6 % (36.0-66.0); PLATELET COUNT, AUTOMATED 279 10^3/uL (150-450); RED BLOOD COUNT 3.75 10^6/uL (4.00-5.40); WHITE BLOOD COUNT 7.4 10^3/uL (4.0-10.0)
[2022-12-23 06:35] LABS: ALBUMIN 2.9 G/DL (3.2-5.2); ALKALINE PHOSPHATASE 80 U/L (46-116); ALT/SGPT 14 U/L (7.0-40); AST/SGOT 16 U/L (<34); BILIRUBIN,TOTAL 0.3 MG/DL (0.3-1.2); BLOOD UREA NITROGEN 15 MG/DL (9-23); CALCIUM LEVEL 8.7 MG/DL (8.3-10.6); CARBON DIOXIDE LEVEL 29 MMOL/L (20-31); CHLORIDE LEVEL 105 MMOL/L (98-107); GLOMERULAR FILTRATION RATE > 60.0 (>39); GLUCOSE, FASTING 128 MG/DL (74-106); MAGNESIUM LEVEL 2.3 MG/DL (1.8-2.4); POTASSIUM SERUM 3.8 MMOL/L (3.5-5.1); SODIUM LEVEL 140 MMOL/L (136-145); TOTAL PROTEIN 5.9 G/DL (5.7-8.2)
[2022-12-23] MEDS ORDERED: MOM30SS2 PO (07:46)
[2022-12-23] MEDS: ENOXAPARIN 60MG/0.6ML SYRINGE (J1650 PER 10MG) SC SCH (08:16)
[2022-12-23] MEDS: MOM 30ML SUSPENSION UDC PO SCH (08:16)
[2022-12-23] MEDS: INSULIN LISPRO (NovoLOG) PER UNIT SC SCH (08:16)
[2022-12-23] MEDS: allopurinoL 300 MG TAB PO SCH (08:17)
[2022-12-23] MEDS: CYANOCOBALAMIN 500 MCG TAB PO SCH (08:17)
[2022-12-23] MEDS: VITAMIN D 1,000 INTERNATIONAL UNITS TABLET PO SCH (08:18)
[2022-12-23] MEDS: ASPIRIN 81MG ENTERIC TABLET PO SCH (08:18)
== END 2022-12-23 11:50 | disposition home or self-care (01) | DRG 394 ==
LOC: M ED 06:48 → M ED INP 13:39 → ENRESERV 15:45 → M MS5PR 16:40
PROVIDERS: ADMIT Student in an Organized Health Care Education/Training Program; ATTEND Student in an Organized Health Care Education/Training Program
DX: K43.0 Incisional hernia with obstruction, without gangrene (principal); I50.32 Chronic diastolic (congestive) heart failure; I13.0 Hypertensive heart and chronic kidney disease with heart failure and stage 1 through stage 4 chronic kidney disease, or unspecified chronic kidney disease; E87.20 Acidosis, unspecified; Z68.43 Body mass index [BMI] 50.0-59.9, adult; N17.9 Acute kidney failure, unspecified; I34.0 Nonrheumatic mitral (valve) insufficiency; E89.0 Postprocedural hypothyroidism; Z90.49 Acquired absence of other specified parts of digestive tract; E11.22 Type 2 diabetes mellitus with diabetic chronic kidney disease; N18.30 Chronic kidney disease, stage 3 unspecified; G47.33 Obstructive sleep apnea (adult) (pediatric); E78.5 Hyperlipidemia, unspecified; M10.9 Gout, unspecified; M19.90 Unspecified osteoarthritis, unspecified site; E66.9 Obesity, unspecified; D64.9 Anemia, unspecified; Z87.442 Personal history of urinary calculi; Z98.41 Cataract extraction status, right eye; Z98.42 Cataract extraction status, left eye; Z96.1 Presence of intraocular lens; Z96.652 Presence of left artificial knee joint; Z85.850 Personal history of malignant neoplasm of thyroid

== ENCOUNTER → 2022-12-28 | Outpatient (REF) | payer MEDICARE ==
[~2022-12-28] MED LIST changes: -LOSA100T45 PO; +LOSA100T46 PO; +MAGN50TA PO; +MOM30SS2 PO
== END ==
LOC: M LAB REF 12:10
PROVIDERS: ATTEND Nurse Practitioner Adult Health
DX: R30.0 Dysuria (principal)

== ENCOUNTER → 2023-11-07 | Outpatient (CLI) | payer MEDICARE | LOC: M EKG 09:46 | PROVIDERS: ATTEND Physician Assistant | DX: I45.3 Trifascicular block (principal) ==

== ENCOUNTER → 2024-05-22 | Outpatient (CLI) | payer MEDICARE | LOC: M CARPUL 13:52 | PROVIDERS: ATTEND Nurse Practitioner Adult Health | DX: I35.0 Nonrheumatic aortic (valve) stenosis (principal) ==

== ENCOUNTER 2024-06-26 15:42 | Inpatient (IN) | payer MEDICARE ==
[~2024-06-26] VITALS: Ht 152.4 cm; Wt 112.0 kg
[~2024-06-26 15:42] MED LIST changes: -ALBU8.5H INH; -COLA100C5 PO; -LEVO175T2 PO; -MAGN400T33 PO; -MIRA3350 PO; -MONT10TA97 PO; -SENN8.6T28 PO
[2024-06-26 17:11] LABS: BASO % 0.1 % (0.0-1.0); EOS % 0.2 % (0.0-3.0); HEMATOCRIT 38.9 % (36.0-47.0); HEMOGLOBIN 12.3 g/dl (12.0-15.5); LYMPH % 11.8 % (24.0-44.0); MEAN CORPUSCULAR HGB CONC 31.6 g/dl (32.0-36.5); MEAN CORPUSCULAR VOLUME 88.4 fl (80.0-96.0); MONO # 0.6 10^3/uL (0.0-0.8); MONO % 7.3 % (2.0-8.0); NEUTROPHILS # 6.5 10^3/uL (1.5-8.5); NEUTROPHILS % 79.5 % (36.0-66.0); PLATELET COUNT, AUTOMATED 334 10^3/uL (150-450); WHITE BLOOD COUNT 8.2 10^3/uL (4.0-10.0)
[2024-06-26 17:32] LABS: ALBUMIN 3.4 G/DL (3.2-5.2); BILIRUBIN,DIRECT 0.2 MG/DL (<0.4); BILIRUBIN,TOTAL 0.6 MG/DL (0.3-1.2); TOTAL PROTEIN 7.3 G/DL (5.7-8.2)
[2024-06-26] MEDS ORDERED: GLUCAGON INJ 1MG VIAL SC PRN (21:35)
[2024-06-26] MEDS ORDERED: GLUCOSE 4 GM CHEW PO PRN (21:35)
[2024-06-26] MEDS: LR 1,000 ML IV SCH (21:45)
[2024-06-26] MEDS ORDERED: ALBU8.5H INH (22:01)
[2024-06-26] MEDS ORDERED: MONT10TA97 PO (22:01)
[2024-06-26] MEDS ORDERED: MAGN400T33 PO (22:01)
[2024-06-26] MEDS ORDERED: LEVO175T2 PO (22:01)
[2024-06-26] MEDS ORDERED: HOME MED LIST COMPLETE! XX SCH (22:05)
[2024-06-27] MEDS: INSULIN LISPRO (NovoLOG) PER UNIT SC SCH (00:38)
[2024-06-27 02:23] VITALS: BP 152/64; TEMP 97.9; O2SAT 92
[2024-06-27] MEDS: ACETAMINOPHEN 325 MG TAB PO PRN (04:19)
[2024-06-27 06:02] LABS: HEMATOCRIT 35.3 % (36.0-47.0); HEMOGLOBIN 11.1 g/dl (12.0-15.5); MEAN CORPUSCULAR HEMOGLOBIN 28.7 pg (27.0-33.0); MEAN CORPUSCULAR HGB CONC 31.4 g/dl (32.0-36.5); MEAN CORPUSCULAR VOLUME 91.2 fl (80.0-96.0); PLATELET COUNT, AUTOMATED 288 10^3/uL (150-450); RED BLOOD COUNT 3.87 10^6/uL (4.00-5.40)
[2024-06-27] MEDS: LEVOTHYROXINE 100MCG (0.1MG) 5ML SDV PF (SOLUTION FORM) IV SCH (06:04)
[2024-06-27] MEDS: HEPARIN SOD (PORCINE) 5000UNITS/ML 1ML VIAL/SYRINGE SC SCH (06:05)
[2024-06-27 06:28] LABS: CALCIUM LEVEL 9.2 MG/DL (8.3-10.6); CREATININE FOR GFR 1.48 MG/DL (0.55-1.30); GLOMERULAR FILTRATION RATE 36.3 (>39)
[2024-06-27] MEDS: LEVEMIR (INSULIN DETEMIR) 1 UNITS/0.01ML SC SCH (09:13)
[2024-06-27 12:00] VITALS: BP 138/54; TEMP 97.5; O2SAT 95
[2024-06-27 19:40] VITALS: BP_SYST 141; BP_SYST 163; BP_DIAS 52; BP_DIAS 57; TEMP 97.5; O2SAT 90
[2024-06-28 03:20] VITALS: BP 151/69; TEMP 97.2; O2SAT 95
[2024-06-28] MEDS: DEXTROSE 50% 50ML SYRINGE IV PRN (03:34)
[2024-06-28 06:06] LABS: HEMOGLOBIN 10.7 g/dl (12.0-15.5); MEAN CORPUSCULAR HEMOGLOBIN 28.4 pg (27.0-33.0); MEAN CORPUSCULAR HGB CONC 30.6 g/dl (32.0-36.5); MEAN CORPUSCULAR VOLUME 92.8 fl (80.0-96.0); PLATELET COUNT, AUTOMATED 247 10^3/uL (150-450); RED BLOOD COUNT 3.77 10^6/uL (4.00-5.40); WHITE BLOOD COUNT 5.8 10^3/uL (4.0-10.0)
[2024-06-28 06:24] LABS: ALBUMIN 2.7 G/DL (3.2-5.2); BILIRUBIN,TOTAL 0.2 MG/DL (0.3-1.2); CALCIUM LEVEL 8.9 MG/DL (8.3-10.6); CREATININE FOR GFR 1.12 MG/DL (0.55-1.30); GLOMERULAR FILTRATION RATE 50.1 (>39); TOTAL PROTEIN 6.4 G/DL (5.7-8.2)
[2024-06-28] MEDS ORDERED: D5W/0.45% SODIUM CHLORIDE 1,000 ML IV SCH (07:40)
[2024-06-28 08:26] LABS: ALBUMIN 2.9 G/DL (3.2-5.2); BILIRUBIN,TOTAL 0.3 MG/DL (0.3-1.2); CALCIUM LEVEL 9.3 MG/DL (8.3-10.6); CREATININE FOR GFR 1.09 MG/DL (0.55-1.30); GLOMERULAR FILTRATION RATE 51.7 (>39); POTASSIUM SERUM 3.7 MMOL/L (3.5-5.1); TOTAL PROTEIN 6.5 G/DL (5.7-8.2)
[2024-06-28] MEDS ORDERED: LEVEMIR (INSULIN DETEMIR) 1 UNITS/0.01ML SC SCH (09:00)
[2024-06-28] MEDS ORDERED: COLA100C5 PO (09:13)
[2024-06-28] MEDS ORDERED: SENN8.6T28 PO (09:13)
[2024-06-28] MEDS ORDERED: MIRA3350 PO (09:13)
== END 2024-06-28 11:52 | disposition home or self-care (01) | DRG 394 ==
LOC: M ED 15:42 → M ED INP 22:11 → M MSPAV 06-27 02:23
PROVIDERS: ADMIT Student in an Organized Health Care Education/Training Program; ATTEND Internal Medicine
DX: K43.0 Incisional hernia with obstruction, without gangrene (principal); I50.32 Chronic diastolic (congestive) heart failure; I13.0 Hypertensive heart and chronic kidney disease with heart failure and stage 1 through stage 4 chronic kidney disease, or unspecified chronic kidney disease; N17.9 Acute kidney failure, unspecified; Z68.42 Body mass index [BMI] 45.0-49.9, adult; N18.30 Chronic kidney disease, stage 3 unspecified; I34.0 Nonrheumatic mitral (valve) insufficiency; E11.22 Type 2 diabetes mellitus with diabetic chronic kidney disease; E03.9 Hypothyroidism, unspecified; G47.33 Obstructive sleep apnea (adult) (pediatric); E78.5 Hyperlipidemia, unspecified; M10.9 Gout, unspecified; E66.813 Obesity, class 3; M19.90 Unspecified osteoarthritis, unspecified site; E11.649 Type 2 diabetes mellitus with hypoglycemia without coma; D64.9 Anemia, unspecified; Z98.41 Cataract extraction status, right eye; G89.29 Other chronic pain; Z98.42 Cataract extraction status, left eye; Z96.1 Presence of intraocular lens; Z96.652 Presence of left artificial knee joint; Z90.49 Acquired absence of other specified parts of digestive tract; E55.9 Vitamin D deficiency, unspecified; E89.0 Postprocedural hypothyroidism; Z79.4 Long term (current) use of insulin; Z79.82 Long term (current) use of aspirin; Z79.890 Hormone replacement therapy; Z79.899 Other long term (current) drug therapy; Z88.8 Allergy status to other drugs, medicaments and biological substances; Z91.041 Radiographic dye allergy status; Z91.048 Other nonmedicinal substance allergy status

== ENCOUNTER → 2024-06-26 | Outpatient (CLI) | payer MEDICARE ==
[~2024-06-26] MED LIST changes: +ALBU8.5H INH; +COLA100C5 PO; +GLIP10TA15 PO; -GLIP10TA6 PO; +LEVO175T2 PO; +MAGN400T33 PO; +MIRA3350 PO; +MONT10TA97 PO; +SENN8.6T28 PO
== END ==
LOC: M WUC 13:34
PROVIDERS: ATTEND Nurse Practitioner Adult Health
DX: K56.609 Unspecified intestinal obstruction, unspecified as to partial versus complete obstruction (principal)

== ENCOUNTER → 2024-08-13 | Outpatient (CLI) | payer MEDICARE ==
[~2024-08-13] MED LIST changes: +ALBU8.5H INH; +COLA100C5 PO; +GASTROGRAFIN SOLUTION 30ML As Ordered ONE; +LEVO175T2 PO; +MAGN400T33 PO; +MIRA3350 PO; +MONT10TA97 PO; +SENN8.6T28 PO
== END ==
LOC: M RAD 12:23
PROVIDERS: ATTEND Nurse Practitioner Adult Health
DX: R10.9 Unspecified abdominal pain (principal)
CPT/HCPCS: 74176; Q9963

== ENCOUNTER → 2024-11-18 | Outpatient (CLI) | payer MEDICARE ==
[~2024-11-18] MED LIST changes: -GASTROGRAFIN SOLUTION 30ML As Ordered ONE; +GLIP-320 PO; -GLIP10TA18 PO
== END ==
LOC: M RAD 12:42
PROVIDERS: ATTEND Physician Assistant
DX: R09.89 Other specified symptoms and signs involving the circulatory and respiratory systems (principal)

== ENCOUNTER 2025-01-07 11:29 | Emergency (ER) | payer MEDICARE ==
[~2025-01-07] VITALS: Ht 152.4 cm; Wt 116.4 kg
[2025-01-07 12:45] LABS: KETONE, URINE AUTO RFX NEGATIVE (NEGATIVE); LEUKOCYTE ESTERASE UR AUTO RFX 1+ (NEGATIVE); MUCUS, URINE RFX SMALL (NEGATIVE); NITRITE, URINE AUTO RFX NEGATIVE (NEGATIVE); RBC, URINE AUTO RFX 1 /HPF (0-3); SQUAM EPITHELIAL CELL UR AURFX 2 /HPF (0-6); WBC, URINE AUTO RFX 19 /HPF (0-3)
[2025-01-07 12:55] LABS: BASO % 0.4 % (0.0-1.0); EOS # 0.1 10^3/uL (0.0-0.5); EOS % 1.4 % (0.0-3.0); HEMATOCRIT 41.4 % (36.0-47.0); HEMOGLOBIN 12.8 g/dl (12.0-15.5); LYMPH # 1.5 10^3/uL (1.5-5.0); LYMPH % 14.3 % (24.0-44.0); MEAN CORPUSCULAR HEMOGLOBIN 27.6 pg (27.0-33.0); MEAN CORPUSCULAR HGB CONC 30.9 g/dl (32.0-36.5); MEAN CORPUSCULAR VOLUME 89.4 fl (80.0-96.0); MONO # 0.4 10^3/uL (0.0-0.8); MONO % 3.8 % (2.0-8.0); NEUTROPHILS # 8.2 10^3/uL (1.5-8.5); NEUTROPHILS % 79.8 % (36.0-66.0); PLATELET COUNT, AUTOMATED 332 10^3/uL (150-450); RED BLOOD COUNT 4.63 10^6/uL (4.00-5.40); WHITE BLOOD COUNT 10.3 10^3/uL (4.0-10.0)
[2025-01-07 13:25] LABS: LIPASE 33 U/L (12-53)
[2025-01-07 13:27] LABS: ALBUMIN 3.7 G/DL (3.2-5.2); ALKALINE PHOSPHATASE 123 U/L (35-104); ALT/SGPT 17 U/L (7.0-40); AST/SGOT 16 U/L (<34); BILIRUBIN,DIRECT < 0.1 MG/DL (<0.4); BILIRUBIN,TOTAL 0.3 MG/DL (0.3-1.2); TOTAL PROTEIN 7.6 G/DL (5.7-8.2)
[2025-01-07] MEDS: MORPHINE 2 MG/ML 1ML VIAL IV ONE (14:13)
[2025-01-07] MEDS ORDERED: CIPR250T26 PO (15:22)
[2025-01-07 15:39] VITALS: BP 160/69; TEMP 97.1; O2SAT 97
== END 2025-01-07 15:53 | disposition home or self-care (01) ==
LOC: M ED 11:29
DX: N39.0 Urinary tract infection, site not specified (principal); I50.22 Chronic systolic (congestive) heart failure; E11.9 Type 2 diabetes mellitus without complications; I11.0 Hypertensive heart disease with heart failure; E78.5 Hyperlipidemia, unspecified; I25.119 Atherosclerotic heart disease of native coronary artery with unspecified angina pectoris; Z85.850 Personal history of malignant neoplasm of thyroid; Z88.8 Allergy status to other drugs, medicaments and biological substances; Z91.048 Other nonmedicinal substance allergy status; Z79.1 Long term (current) use of non-steroidal anti-inflammatories (NSAID); Z79.2 Long term (current) use of antibiotics; Z79.51 Long term (current) use of inhaled steroids; Z79.899 Other long term (current) drug therapy